=== PATIENT | male | born 1940 | race Hispanic/Latino ===

== ENCOUNTER 2017-06-13 20:55 | Inpatient (IN) | payer MEDICARE, OTHER ==
--- NOTE | 2017-06-13 21:53 | ED PDOC ---
Arrival/HPI - General Chief Complaint: Altered Mental Status Time Seen by Provider: 06/13/17 21:47 Historian: Patient - History of Present Illness Narrative History of Present Illness (Text): 06/13/17 21:50 Edna Lobo is a 76 year old male, whose past medical history includes diabetes, pneumonia, GI bleed, CAD with stents, CABG, and chronic kidney disease, who presents to the Emergency department brought in by EMS for hypoglycemia tonight. Patient states he took his blood sugar and noted it was low. When questioned, patient is unable to recall how low his blood sugar was or how he arrived at the hospital. Fingerstick in ER was 81. Limited HPI and ROS secondary to patient's altered mental status. Time/Duration: Other (tonight) Symptom Onset: Gradual Symptom Course: Unchanged Activities at Onset: Light Context: Home Past Medical History - Provider Review Nursing Documentation Reviewed: Yes - Infectious Disease Hx of Infectious Diseases: None - Tetanus Immunization Tetanus Immunization: Unknown - Cardiac Hx Cardiac Disorders: Yes Hx Pacemaker: No - Pulmonary Hx Respiratory Disorders: Yes Hx Pneumonia: Yes - Neurological Hx Paralysis: No - HEENT Other/Comment: GLASSES - Renal Hx Renal Disorder: No - Endocrine/Metabolic Hx Endocrine Disorders: Yes Hx Diabetes Mellitus Type 2: Yes - Hematological/Oncological Hx Blood Transfusions: Yes Hx Blood Transfusion Reaction: No - Integumentary Hx Dermatological Disorder: No - Musculoskeletal/Rheumatological Hx Musculoskeletal Disorders: Yes Hx Unsteady Gait: Yes - Gastrointestinal Hx Gastrointestinal Disorders: Yes (GI BLEED 6-5-14) - Genitourinary/Gynecological Hx Genitourinary Disorders: No - Psychiatric Hx Psychophysiologic Disorder: No Hx Emotional Abuse: No Hx Physical Abuse: No Hx Substance Use: No - Surgical History Hx Open Heart Surgery: Yes - Anesthesia Hx Anesthesia: Yes Hx Anesthesia Reactions: No - Suicidal Assessment Feels Threatened In Home Enviroment: No Family/Social History - Physician Review Nursing Documentation Reviewed: Yes Family/Social History: Unknown Family HX Smoking Status: Former Smoker Hx Alcohol Use: Yes Frequency of alcohol use: Socially Hx Substance Use: No Hx Substance Use Treatment: No Allergies/Home Meds Allergies/Adverse Reactions: Allergies prasugrel HCl [From Effient] Adverse Reaction (Severe, Verified 11/09/15 19:06) ANAPHYLAXIS Pt states he began to bleed out when he took this medication and no longer takes it. Home Medications: Home Meds Medication Instructions Recorded Confirmed Alprazolam [Alprazolam Xr] 0.5 mg PO DAILY PRN 09/10/15 06/14/17 Ascorbate Calcium [Vitamin C] 500 mg PO DAILY 09/10/15 06/14/17 Aspirin [Ecotrin] 81 mg PO DAILY 09/10/15 06/14/17 Cilostazol [Pletal] 50 mg PO BID 09/10/15 06/14/17 Clopidogrel [Plavix] 75 mg PO DAILY 09/10/15 06/14/17 Cyclobenzaprine [Flexeril] 10 mg PO BID 09/10/15 06/14/17 Folic Acid 1 mg PO DAILY 09/10/15 06/14/17 Furosemide [Lasix] 40 mg PO Q48H 09/10/15 06/14/17 Glimepiride 2 mg PO DAILY 09/10/15 06/14/17 Isosorbide Mononitrate ER [Imdur 30 mg PO DAILY 09/10/15 06/14/17 ER] Lisinopril [Zestril] 5 mg PO DAILY 09/10/15 06/14/17 Metoprolol Tartrate 50 mg PO BID 09/10/15 06/14/17 Omeprazole [Prilosec] 40 mg PO DAILY 09/10/15 06/14/17 Ranolazine [Ranexa] 500 mg PO BID 09/10/15 06/14/17 Rosuvastatin Calcium [Crestor] 5 mg PO SUN 09/10/15 06/14/17 Ubidecarenone [Co Q10] 100 mg PO DAILY 09/10/15 06/14/17 metFORMIN [glucOPHAGE] 850 mg PO BID 09/10/15 06/14/17 oxyCODONE [oxyCODONE Immediate 30 mg PO TID PRN 09/10/15 06/14/17 Release Tab] Review of Systems - Review of Systems Systems not reviewed;Unavailable: Altered Mental Status Endocrine: Other (+hypoglycemia) Physical Exam Vital Signs Reviewed: Yes Vital Signs Temp Pulse Resp BP Pulse Ox 06/14/17 07:45 80 18 161/80 H 99 06/14/17 07:30 98 F 80 18 170/88 H 98 06/14/17 05:53 77 17 178/92 H 97 06/14/17 02:14 82 18 182/63 H 98 06/13/17 21:25 98.9 F 83 17 138/72 97 Temperature: Afebrile Blood Pressure: Normal Pulse: Regular Respiratory Rate: Normal Appearance: Positive for: Well-Appearing, Non-Toxic Pain Distress: None Mental Status: No: Alert and Oriented X 3 (Alert and oriented x1) - Systems Exam Head: Present: Atraumatic, Normocephalic Pupils: Present: PERRL Extroacular Muscles: Present: EOMI Conjunctiva: Present: Normal Mouth: Present: Moist Mucous Membranes Neck: Present: Normal Range of Motion. No: Meningeal Signs, MIDLINE TENDERNESS , Paraspinal Tenderness Respiratory/Chest: Present: Clear to Auscultation, Good Air Exchange. No: Respiratory Distress, Accessory Muscle Use Cardiovascular: Present: Regular Rate and Rhythm, Normal S1, S2. No: Murmurs Abdomen: Present: Normal Bowel Sounds. No: Tenderness, Distention, Peritoneal Signs Upper Extremity: Present: Normal Inspection. No: Cyanosis, Edema Lower Extremity: Present: Normal Inspection. No: Edema Neurological: Present: GCS=15, CN II-XII Intact, Speech Normal Skin: Present: Warm, Dry, Normal Color. No: Rashes Psychiatric: Present: Alert. No: Oriented x 3 (Altered, oriented x2) Medical Decision Making ED Course and Treatment: 06/13/17 21:50 Impression: 76 year old male brought in for hypoglycemia tonight. Plan: -- CT Head w/o contrast -- EKG -- Labs, cardiac enzymes, alcohol level, blood cultures -- Urinalysis, urine drug screen, urine cultures -- Reassess and disposition Progress Notes: Reviewed EKG, NSR at [address]-segment elevations or depressions, no T-wave inversions, normal intervals. 06/14/17 01:05 CT Head shows: Brain: There are small periventricular foci of hypodensity, likely representing small vessel ischemic disease in a patient this age. The acuity of the white matter disease is indeterminate. The white-rodriguez differentiation is preserved demonstrating no acute territorial type infarct. There is mild prominence of the ventricles and sulci, compatible with atrophy. No acute intracranial hemorrhage is seen. Midline shift: There is no midline shift. Ventricles: See above. Bones/joints: The calvarium demonstrates no evidence for a depressed fracture. Soft tissues: No acute abnormality. Vasculature: There is atherosclerotic calcification of the cavernous internal carotid arteries. Sinuses: A mucous retention cyst or polyp is visualized within the left frontal sinus. Mastoid air cells: No mastoid effusion. IMPRESSION: 1. No acute intracranial hemorrhage or acute territorial type infarct. 2. There are small periventricular foci of hypodensity, likely representing small vessel ischemic disease in a patient this age. 3. Mild atrophy. 4. Paranasal sinus disease is noted above. 06/14/17 01:[address] Trinidad, who is aware and agrees with plan. Accepts pt in to his service. Pt will go to remote telemetry observation for hypoglycemia and altered mental status. - Lab Interpretations Microbiology Results: Microbiology Results 06/13/17 22:45 Blood-Venous Blood Culture - Preliminary NO GROWTH AFTER 48 HOURS 06/13/17 22:15 Blood-Venous Blood Culture - Preliminary NO GROWTH AFTER 48 HOURS 06/13/17 23:20 Urine,Clean Catch Urine Culture - Final No Growth (<1,000 CFU/ML) Lab Results: 06/13/17 22:15 06/13/17 22:15 Lab Results 06/13/17 23:20: Urine Opiates Screen Positive H, Urine Methadone Screen Negative , Ur Barbiturates Screen Negative, Ur Phencyclidine Scrn Negative, Ur Amphetamines Screen Negative, U Benzodiazepines Scrn Positive, U Oth Cocaine Metabols Negative, U Cannabinoids Screen Negative 06/13/17 23:20: Urine Color Yellow, Urine Appearance Clear, Urine pH 6.0, Ur Specific Dorena 1.025, Urine Protein Negative, Urine Glucose (UA) Negative, Urine Ketones Negative, Urine Blood Negative, Urine Nitrate Negative, Urine Bilirubin Negative, Urine Urobilinogen 0.2, Ur Leukocyte Esterase Negative 06/13/17 22:15: Salicylates < 1 L, Acetaminophen < 10.0 L 06/13/17 22:15: Ammonia < 9 L 06/13/17 22:15: Alcohol, Quantitative < 10 06/13/17 22:15: Sodium 139, Potassium 4.4, Chloride 103, Carbon Dioxide 28, Anion Gap 12, BUN 23 H, Creatinine 1.3, Est GFR ( Amer) > 60, Est GFR ( Non-Af Amer) 54, Random Glucose 82, Calcium 10.0, Phosphorus 3.5, Magnesium 1.7 , Total Bilirubin 0.3, AST 19, ALT 25, Alkaline Phosphatase 56, Lactate Dehydrogenase 294 L, Total Creatine Kinase 32 L, Troponin I < 0.01, Total Protein 7.4, Albumin 3.7, Globulin 3.7, Albumin/Globulin Ratio 1.0 L 06/13/17 22:15: PT 12.4, INR 1.09 H, APTT 30.8 06/13/17 22:15: WBC 5.7, RBC 3.47 L, Hgb 11.4 L, Hct 34.9 L, MCV 100.6, MCH 32.9 , MCHC 32.7, RDW 12.5, Plt Count 160, MPV 9.9, Gran % 56.0, Lymph % (Auto) 31.5 , [place] % (Auto) 10.7 H, Eos % (Auto) 1.6, Baso % (Auto) 0.2, Gran # 3.20, Lymph # 1.8, [place] # 0.6, Eos # 0.1, Baso # 0.01 06/13/17 21:55: POC Glucose (mg/dL) 93 I have reviewed the lab results: Yes - RAD Interpretation Radiology Orders: 06/13/17 21:54 HEAD W/O CONTRAST [CT] Stat Management Coordinator: Radiologist - EKG Interpretation Interpreted by ED Physician: Yes Type: 12 lead EKG - Medication Orders Current Medication Orders: Acetaminophen (Tylenol 325mg Tab) 650 mg PO Q4H PRN PRN Reason: Pain, Mild (1-3) Alprazolam (Xanax) 0.5 mg PO DAILY PRN; Protocol PRN Reason: Anxiety Last Admin: 06/16/17 07:02 Dose: 0.5 mg Behavioural Document 06/16/17 07:02 (Rec: 06/16/17 07:02 [id number]) Maintenance Maintenance Dose No Nonmedicinal Nonmedicinal Interventions Redirect Therapeutic Communication Behavior Behavior for Medication: Anxiety Aspirin (Ecotrin) 81 mg PO DAILY [facility] Last Admin: 06/16/17 10:30 Dose: 81 mg Atorvastatin Calcium (Lipitor) 20 mg PO DIN [facility] Last Admin: 06/15/17 19:40 Dose: 20 mg Clopidogrel Bisulfate (Plavix) 75 mg PO DAILY [facility] Last Admin: 06/16/17 10:30 Dose: 75 mg Insulin Human Regular (Humulin R Low) 0 units SC ACHS [facility] PRN Reason: Protocol Last Admin: 06/16/17 12:38 Dose: 1 units MAR Blood Glucose Document 06/16/17 12:38 CV (Rec: 06/16/17 12:38 [facility] [id number] Blood Glucose Finger Stick Blood Glucose (70-120) 167 Subcutaneous Administrations Document 06/16/17 12:38 CV (Rec: 06/16/17 12:38 CV [facility] [id number]) Charges for Administration # of Subcutaneous Administrations 1 Lisinopril (Zestril) 5 mg PO DAILY [facility] Last Admin: 06/16/17 10:30 Dose: 5 mg MAR Pulse and Blood Pressure Document 06/16/17 10:30 CV (Rec: 06/16/17 10:30 CV [facility] [id number]) Pulse Pulse Rate (60-90) 69 Blood Pressure Blood Pressure (100/60-150/90) 172/91 Metoprolol Tartrate (Lopressor) 50 mg PO BID [facility] Last Admin: 06/16/17 10:28 Dose: 50 mg MAR Pulse and Blood Pressure Document 06/16/17 10:28 CV (Rec: 06/16/17 10:29 CV [facility] [id number]) Pulse Pulse Rate (60-90) 69 Blood Pressure Blood Pressure (100/60-150/90) 172/91 Multi-Ingredient Cream (Hydrocerin Cream) 0 ea TOP BID [facility] Nicotine (Nicoderm Cq) 1 patch TD DAILY [facility] Last Admin: 06/16/17 10:30 Dose: 1 patch Oxycodone HCl (Oxycodone Immediate Release Tab) 30 mg PO TID PRN PRN Reason: Pain, severe (8-10) Last Admin: 06/16/17 16:44 Dose: 30 mg MAR Pain Assessment Document 06/16/17 16:44 CV (Rec: 06/16/17 16:44 CV [facility] [id number] Pain Reassessment Is this a pain reassessment? No Presence of Pain Presence of Pain Yes Pain Scale Used Pain Scale Used Numeric Thiamine HCl (Vitamin B1 Tab) 100 mg PO DAILY [facility] Last Admin: 06/16/17 10:30 Dose: 100 mg Discontinued Medications Alprazolam (Xanax) 0.5 mg PO DAILY PRN; Protocol PRN Reason: Anxiety Last Admin: 06/15/17 23:47 Dose: 0.5 mg Behavioural Document 06/15/17 23:47 KP (Rec: 06/15/17 23:47 [id number]) Maintenance Maintenance Dose No Nonmedicinal Nonmedicinal Interventions Redirect Therapeutic Communication Behavior Behavior for Medication: Anxiety Re-Assess: Reassess Psych Meds Document 06/16/17 00:47 KP (Rec: 06/16/17 01:37 [facility] Reassess Psych Med Effective Dextrose (Dextrose 50% Inj) 50 ml IVP STAT STA Stop: 06/14/17 01:39 Last Admin: 06/14/17 01:53 Dose: 50 ml IVP Administration Document 06/14/17 01:53 IT (Rec: 06/14/17 01:53 IT [id number]) Charges for Administration # of IVP Administrations 1 Dextrose/Sodium Chloride (Dextrose 5%/0.45% Ns 1000 Ml) 1,000 mls @ 60 mls/hr IV .[id number] [facility] Last Admin: 06/14/17 01:52 Dose: 60 mls/hr eMAR Start Stop Document 06/14/17 01:52 IT (Rec: 06/14/17 01:52 IT [id number]) Intravenous Solution Start Date 06/14/17 Start Time 01:52 - Scribe Statement The provider has reviewed the documentation as recorded by the Scribe Julai Guzmán All medical record entries made by the Scribe were at my direction and personally dictated by me. I have reviewed the chart and agree that the record accurately reflects my personal performance of the history, physical exam, medical decision making, and the department course for this patient. I have also personally directed, reviewed, and agree with the discharge instructions and disposition. Disposition/Present on Arrival - Present on Arrival Any Indicators Present on Arrival: No History of DVT/PE: No History of Uncontrolled Diabetes: Yes Urinary Catheter: No History of Decub. Ulcer: No History Surgical Site Infection Following: None - Disposition Have Diagnosis and Disposition been Completed?: Yes Diagnosis: Altered mental status Disposition: HOSPITALIZED Disposition Time: 01:50 Patient Problems: Current Active Problems Problem Status Onset Altered mental status Acute Condition: FAIR
[2017-06-13 22:56] LABS: BASO # 0.01 K/mm3 (0.0-2.0); BASO % 0.2 % (0.0-3.0); EOS # 0.1 (0.0-0.7); EOS % 1.6 % (1.5-5.0); GRAN # 3.2 (1.4-6.5); HEMOGLOBIN 11.4 g/dL (14.0-18.0); LYMPH # 1.8 (1.2-3.4); LYMPH % 31.5 % (22.0-35.0); MEAN CELL VOLUME 100.6 fl (80.0-105.0); MEAN CORPUSCULAR HEMOGLOBIN 32.9 pg (25.0-35.0); MEAN CORPUSCULAR HGB CONC 32.7 g/dl (31.0-37.0); MEAN PLATELET VOLUME 9.9 fl (7.0-11.0); MONO # 0.6 (0.1-0.6); MONO % 10.7 % (1.0-6.0); RBC 3.47 10^6/uL (3.5-6.1); RED CELL DISTRIBUTION WIDTH 12.5 % (11.5-14.5); WHITE BLOOD COUNT 5.7 10^3/ul (4.5-11.0)
[2017-06-13 23:04] LABS: ACETAMINOPHEN < 10.0 ug/ml (10.0-20.0); SALICYLATE < 1 mg/dL (2.0-20.0)
[2017-06-13 23:10] LABS: ALBUMIN 3.7 g/dL (3.0-4.8); ALT/SGPT 25 U/L (7-56); AST/SGOT 19 U/L (17-59); BLOOD UREA NITROGEN 23 mg/dL (7-21); GFR AFRICAN-AMERICAN > 60; GFR NON-AFRICAN AMERICAN 54; MAGNESIUM 1.7 mg/dL (1.7-2.2)
[2017-06-13 23:11] LABS: TROPONIN I < 0.01 ng/mL
[2017-06-13 23:18] LABS: INR 1.09 (0.93-1.08); PARTIAL THROMBOPLASTIN TIME 30.8 Seconds (25.1-36.5); PROTHROMBIN TIME 12.4 SECONDS (9.4-12.5)
[2017-06-13 23:38] LABS: URINE BILIRUBIN NEGATIVE (NEGATIVE); URINE BLOOD NEGATIVE (NEGATIVE); URINE GLUCOSE (UA) NEGATIVE (NEGATIVE); URINE LEUKOCYTE ESTERASE NEGATIVE Leu/uL (NEGATIVE); URINE NITRATE NEGATIVE (NEGATIVE); URINE PROTEIN NEGATIVE mg/dL (<30 mg/dL); URINE UROBILINOGEN 0.2 E.U./dL (<1 E.U./dL)
[2017-06-13 23:56] LABS: BARBITURATES, UR NEGATIVE (NEGATIVE); PHENCYCLIDINE, UR NEGATIVE (NEGATIVE)
[2017-06-14] LABS: URINE APPEARANCE CLEAR (CLEAR); URINE COLOR YELLOW (YELLOW)
[2017-06-14 00:04] LABS: BENZODIAZEPINES, UR POSITIVE (NEGATIVE); OPIATES, UR POSITIVE (NEGATIVE)
--- NOTE | 2017-06-14 01:04 | CT ---
EXAM: CT Head Without Intravenous Contrast EXAM DATE/TIME: 06/13/2017 9:54 PM CLINICAL HISTORY: The patient age is 76 years old and is male; Signs and symptoms; Altered mental status/memory loss; Additional info: [facility] Facility exam id and description: Ct heads head w/o contrast TECHNIQUE: Axial computed tomography images of the head/brain without intravenous contrast. All CT scans at this facility use one or more dose reduction techniques, viz.: automated exposure control; ma/kV adjustment per patient size (including targeted exams where dose is matched to indication; i.e. head); or iterative reconstruction technique. Coronal and sagittal reformatted images were created and reviewed. COMPARISON: No relevant prior studies available. FINDINGS: Brain: There are small periventricular foci of hypodensity, likely representing small vessel ischemic disease in a patient this age. The acuity of the white matter disease is indeterminate. The white-rodriguez differentiation is preserved demonstrating no acute territorial type infarct. There is mild prominence of the ventricles and sulci, compatible with atrophy. No acute intracranial hemorrhage is seen. Midline shift: There is no midline shift. Ventricles: See above. Bones/joints: The calvarium demonstrates no evidence for a depressed fracture. Soft tissues: No acute abnormality. Vasculature: There is atherosclerotic calcification of the cavernous internal carotid arteries. Sinuses: A mucous retention cyst or polyp is visualized within the left frontal sinus. Mastoid air cells: No mastoid effusion. IMPRESSION: 1. No acute intracranial hemorrhage or acute territorial type infarct. 2. There are small periventricular foci of hypodensity, likely representing small vessel ischemic disease in a patient this age. 3. Mild atrophy. 4. Paranasal sinus disease is noted above.
[2017-06-14] MEDS ORDERED: Dextrose 50% SYRINGE Inj (50 ml) IVP STA (01:38)
[2017-06-14] MEDS ORDERED: Dextrose 5%/0.45% NS 1,000 ML IV SCH (01:45)
[2017-06-14] MEDS ORDERED: Sodium Chloride 0.9% 1,000 ML IV STA (03:37)
[2017-06-14] MEDS ORDERED: Insulin Regular 1 UNITS/0.01 ML ML ONE (07:52)
[2017-06-14] MEDS: Insulin Reg-LOW-Coverage SC SCH ×3 (07:55→23:43)
--- NOTE | 2017-06-14 09:57 | CARD ---
APPROVED REPORT EKG Measurement Heart [id number] ND [id number] <Conclusion> Normal sinus rhythm NSSTW changes Improved repolarization c/w ECG 11/09/15
[2017-06-14] MEDS: oxyCODONE 30 mg Immediate Release Tab PO PRN (14:00)
--- NOTE | 2017-06-14 14:43 | CP.PCM.CON ---
<Brianna Jaquez - Last Filed: 06/14/17 14:39> History of Present Illness - History of Present Illness History of Present Illness: PGY-[address] Villanueva Neurology: AMS Mr Edna Lobo, 74M, with PMHx of diabetes, pneumonia, GI bleed, CAD with CABG/stents, and chronic kidney disease, was brought in by EMS for alter mental status. Fingerstick in ER was 81. Pt last memory was yesterday's breakfast. Per pt's , pt is not quite himself yesterday. Pt denied recent sickness, travel, change in meds. ROS - As of this moment, pt denies WOODY, change of vision, CP, SOB, N/V/D/C, abdominal pain, dysuria, urinary frequency. (+) numbness/tingling and toe necrosis which is chronic. Pt has outpt podiatry PAST MEDICAL HISTORY: CAD s/p CABG and stents Diabetes mellitus type 2 x 30 years history of GI bleed chronic kidney disease stage III. PSH: CABG, orthopedic surgery. FAMILY HISTORY: Noncontributory. SH: Former smoker, occasional alcohol abuse. Lives at home with . ALLERGIES: EFFIENT CAUSES SEVERE BLEEDING. Med: reviewed Review of Systems - Review of Systems All systems: reviewed and no additional remarkable complaints except Review of Systems: as in HPI Past Patient History - Infectious Disease Hx of Infectious Diseases: None - Tetanus Immunizations Tetanus Immunization: Unknown - Past Medical History & Family History Past Medical History?: Yes - Past Social History Smoking Status: Former Smoker - CARDIAC Hx Cardiac Disorders: Yes Hx Pacemaker: No - PULMONARY Hx Respiratory Disorders: Yes Hx Pneumonia: Yes - NEUROLOGICAL Hx Paralysis: No - HEENT Other/Comment: GLASSES - RENAL Hx Chronic Kidney Disease: No - ENDOCRINE/METABOLIC Hx Endocrine Disorders: Yes Hx Diabetes Mellitus Type 2: Yes - HEMATOLOGICAL/ONCOLOGICAL Hx Blood Transfusions: Yes Hx Blood Transfusion Reaction: No - INTEGUMENTARY Hx Dermatological Problems: No - MUSCULOSKELETAL/RHEUMATOLOGICAL Hx Musculoskeletal Disorders: Yes Hx Unsteady Gait: Yes - GASTROINTESTINAL Hx Gastrointestinal Disorders: Yes (GI BLEED 6--14) - GENITOURINARY/GYNECOLOGICAL Hx Genitourinary Disorders: No - PSYCHIATRIC Hx Psychophysiologic Disorder: No Hx Emotional Abuse: No Hx Physical Abuse: No Hx Substance Use: No - SURGICAL HISTORY Hx Open Heart Surgery: Yes - ANESTHESIA Hx Anesthesia: Yes Hx Anesthesia Reactions: No Meds Allergies/Adverse Reactions: Allergies Allergy/AdvReac Type Severity Reaction Status Date / Time prasugrel HCl [From Effient] AdvReac Severe ANAPHYLAXIS Verified 11/09/15 19:06 - Medications Medications: Current Medications Acetaminophen (Tylenol 325mg Tab) 650 mg PO Q4H PRN PRN Reason: Pain, Mild (1-3) Aspirin (Ecotrin) 81 mg PO DAILY [facility] Last Admin: 06/14/17 10:37 Dose: 81 mg Atorvastatin Calcium (Lipitor) 20 mg PO DIN [facility] Clopidogrel Bisulfate (Plavix) 75 mg PO DAILY [facility] Last Admin: 06/14/17 10:37 Dose: 75 mg Dextrose/Sodium Chloride (Dextrose 5%/0.45% Ns 1000 Ml) 1,000 mls @ 60 mls/hr IV .[id number] [facility] Last Admin: 06/14/17 01:52 Dose: 60 mls/hr Insulin Human Regular (Humulin R Low) 0 units SC ACHS [facility] PRN Reason: Protocol Last Admin: 06/14/17 13:59 Dose: Not Given Lisinopril (Zestril) 5 mg PO DAILY [facility] Last Admin: 06/14/17 10:37 Dose: 5 mg Metoprolol Tartrate (Lopressor) 50 mg PO BID [facility] Last Admin: 06/14/17 10:37 Dose: 50 mg Oxycodone HCl (Oxycodone Immediate Release Tab) 30 mg PO TID PRN PRN Reason: Pain, severe (8-10) Last Admin: 06/14/17 14:00 Dose: 30 mg Thiamine HCl (Vitamin B1 Tab) 100 mg PO DAILY [facility] Last Admin: 06/14/17 12:03 Dose: 100 mg Physical Exam - Constitutional Appears: No Acute Distress - Head Exam Head Exam: ATRAUMATIC, NORMAL INSPECTION, NORMOCEPHALIC - Eye Exam Eye Exam: EOMI, Normal appearance, PERRL Pupil Exam: NORMAL ACCOMODATION, PERRL - ENT Exam ENT Exam: Mucous Membranes Moist - Neck Exam Additional comments: supple - Respiratory Exam Respiratory Exam: Clear to Auscultation Bilateral, NORMAL BREATHING PATTERN. absent: Rales, Rhonchi, Wheezes - Cardiovascular Exam Cardiovascular Exam: REGULAR RHYTHM, +S1, +S2 - GI/Abdominal Exam GI & Abdominal Exam: Normal Bowel Sounds, Soft. absent: Guarding, Rigid, Tenderness - Extremities Exam Extremities exam: Positive for: pedal edema (increase skin tone b/l LE. Dry necrotic in toes, chronic), pedal pulses present. Negative for: calf tenderness - Neurological Exam Neurological exam: Alert, CN II-XII Intact, Oriented x3 Additional comments: speech: fluent recall: 3/3 motor: 5/5 sensory: decrease LE b/l rapid alt movment: intact finger to nose coordination: intact - Psychiatric Exam Psychiatric exam: Normal Affect, Normal Mood - Skin Skin Exam: Dry, Warm Results - Vital Signs Recent Vital Signs: Last Vital Signs Temp 98 F 06/14/17 07:30 Pulse 83 06/14/17 10:37 Resp 18 06/14/17 07:45 BP 174/83 H 06/14/17 10:37 Pulse Ox 99 06/14/17 07:45 - Labs Result Diagrams: 06/13/17 22:15 06/13/17 22:15 Labs: Laboratory Results - last 24 hr 06/14/17 07:29 POC Glucose (mg/dL) 177 H Assessment & Plan - Assessment and Plan (Free Text) Plan: Mr Edna Lobo, 74M, with PMHx of diabetes, pneumonia, GI bleed, CAD with CABG/stents, and chronic kidney disease, was brought in by EMS for alter mental status. Fingerstick in ER was 81. Pt last memory was yesterday's breakfast. Per pt's , pt is not quite himself yesterday. Tranient confusion state 2/2 transient hypoglycemic episode - monitor and correct electrolyte accordingly - maintain SBP 120-130 - aspirin 81, lipitor 20 for stroke prevention - thiamine 100mg PO daily for neuraol activit Macrocytic anmeia - check b12, folate, supplement if needed. Also to prevent neuropathy Diabetic neuropathy - PT/OT for gait, balance, strength s/r/d/w Dr. Villanueva <Jerrell Villanueva - Last Filed: 06/14/17 16:38> Meds - Medications Medications: Current Medications Acetaminophen (Tylenol 325mg Tab) 650 mg PO Q4H PRN PRN Reason: Pain, Mild (1-3) Aspirin (Ecotrin) 81 mg PO DAILY [facility] Last Admin: 01/22/18 10:37 Dose: 81 mg Atorvastatin Calcium (Lipitor) 20 mg PO DIN [facility] Clopidogrel Bisulfate (Plavix) 75 mg PO DAILY [facility] Last Admin: 06/14/17 10:37 Dose: 75 mg Dextrose/Sodium Chloride (Dextrose 5%/0.45% Ns 1000 Ml) 1,000 mls @ 60 mls/hr IV .[id number] [facility] Last Admin: 06/14/17 01:52 Dose: 60 mls/hr Insulin Human Regular (Humulin R Low) 0 units SC ACHS [facility] PRN Reason: Protocol Last Admin: 06/14/17 13:59 Dose: Not Given Lisinopril (Zestril) 5 mg PO DAILY [facility] Last Admin: 06/14/17 10:37 Dose: 5 mg Metoprolol Tartrate (Lopressor) 50 mg PO BID [facility] Last Admin: 06/14/17 10:37 Dose: 50 mg Oxycodone HCl (Oxycodone Immediate Release Tab) 30 mg PO TID PRN PRN Reason: Pain, severe (8-10) Last Admin: 06/14/17 14:00 Dose: 30 mg Thiamine HCl (Vitamin B1 Tab) 100 mg PO DAILY [facility] Last Admin: 06/14/17 12:03 Dose: 100 mg Results - Vital Signs Recent Vital Signs: Last Vital Signs Temp 98 F 06/14/17 07:30 Pulse 83 06/14/17 10:37 Resp 18 06/14/17 07:45 BP 174/83 H 06/14/17 10:37 Pulse Ox 99 06/14/17 07:45 - Labs Result Diagrams: 06/13/17 22:15 06/13/17 22:15 Labs: Laboratory Results - last 24 hr 06/14/17 06/14/17 07:29 12:08 POC Glucose (mg/dL) 177 H 86 Attending/Attestation - Attestation I have personally seen and examined this patient.: Yes I have fully participated in the care of the patient.: Yes I have reviewed all pertinent clinical information: Yes
[2017-06-14 16:48] VITALS: BMI 28.1
--- NOTE | 2017-06-14 19:24 | HP ---
CHIEF COMPLAINT AND HISTORY OF PRESENT ILLNESS: This is a 76-year-old male who is coming in to the hospital with confusion. The patient's had called me yesterday to let me know that the patient was not his usual self, he was confused. He was brought in and was found to be hypoglycemic. The patient was given an amp of D50. The patient still has confusion. He is not able to focus on questions. He has difficult time in concentrating. He has no complaints of any chest pain. No shortness of breath. No nausea. No vomiting. No dysuria. No frequency. No headache or dizziness. He does take narcotics for chronic pain. He denies any weakness in the arms or legs. No dysuria or frequency. No cough or congestion. REVIEW OF SYSTEMS: All other review of systems are within normal limits except what is mentioned. ALLERGIES: PRASUGREL. PAST MEDICAL HISTORY: Diabetes type II, pneumonia, coronary artery disease, CKD stage 3, and chronic back pain. PAST SURGICAL HISTORY: CABG. SOCIAL HISTORY: He is a former smoker. He does not currently smoke. He denies alcohol or drug use. He lives with his . FAMILY HISTORY: Noncontributory. MEDICATIONS: Has been reviewed on the [facility]. PHYSICAL EXAMINATION VITAL SIGNS: Temperature is 98, pulse 80, blood pressure 161/80, respirations 18 and O2 saturation 99%. GENERAL: The patient lying in bed, uncomfortable, and in no acute distress. HEENT: Atraumatic and normocephalic. Anicteric sclerae. Moist mucosa. Catron conjunctivae. No oral lesions. NECK: No JVD, anterior and posterior adenopathy, thyromegaly, or bruits. CARDIOVASCULAR: S1 and S2 regular. No murmur, rubs, or gallop. LUNGS: Clear to auscultation bilaterally. No wheezes, rales, or rhonchi. ABDOMEN: Bowel sounds are positive. Soft, nontender and nondistended. No hepatosplenomegaly. No rebound and no guarding EXTREMITIES: No cyanosis, clubbing, or edema. NEUROLOGIC: No facial asymmetry. Tongue is midline. No uvula deviation. Power is 5/5 upper extremity and lower extremity. Sensation intact in upper extremity and lower extremity. PSYCHIATRIC: The patient is awake, but not alert. He does not know the day or the time. He has no suicidal ideation. GENITOURINARY: No CVA tenderness. VASCULAR: 2+ pulses in the carotid pulses and pedal pulses. SKIN: No erythema or nodules SPINE: Shows normal curvature. LABORATORY DATA: Labs have been reviewed. White count is 5.7 and hemoglobin 11.4. INR is 1. Chemistry shows creatinine is 1.3, troponin is 0.01. Urine shows nitrates are negative. Bilirubin is negative. Toxicology shows urine tox is negative except opioids are positive. CT of the head done shows no acute intracranial hemorrhage. There are small periventricular foci of hypertension, likely representing small vessel ischemic disease. Mild atrophy. ASSESSMENT: 1. Delirium. 2. Diabetes type II. 3. Coronary artery disease status post coronary artery bypass graft. 4. Chronic kidney disease stage 3. PLAN: The patient was brought into the hospital. He has been placed on D5, half normal saline for his hyperglycemia. The patient has been on oral hyperglycemic as an outpatient and has not been eating. He is going to continue his aspirin. He is on Plavix. The patient is on Zestril. He is also on metoprolol. I will continue his metoprolol for his coronary artery disease. I will get Neurological evaluation. He is going to need evaluation by Neurology. I will get Physical Therapy. I did speak to the patient's this morning to give her an update of the patient's diagnosis and plan of care. Ronen Trinidad MD
--- NOTE | 2017-06-15 05:49 | CON ---
DATE: 06/14/2017 TIME: 7:30 p.m. CHIEF COMPLAINT/HISTORY OF PRESENT ILLNESS: This is a 76-year-old who was admitted with mental status changes and found to be hypoglycemic. Currently, he is lucid and answering questions appropriately. I am seeing him concerning his PVD and bilateral lower extremity ischemia. His feet are erythematous with chronic changes. There are patches of dry discoloration, early gangrene bilaterally. The patient describes [id number] pain intermittently and says these changes have been present in the feet for over one year. He is neuropathic. He has had several previous lower extremity arteriograms in 2015 and 2016 by the Cardiology service. This revealed severe calcified disease with multifocal stenosis in the SFA, popliteal, and tibial distribution. The patient is diabetic. He quit smoking approximately five years ago. He is status post CABG. He has stage III renal insufficiency. His femoral pulses are weak, this may be related to calcification. His popliteal and distal pulses are not palpable. I will order an DEMOND/PVR exam. There appears to be primarily chronic ischemic changes, though the digital discoloration is worrisome. I will discuss the situation with Dr. Trinidad along with the patient and decide if further workup is indicated at this time. Close Podiatry followup is recommended. Jay Bradley MD MTDD
[2017-06-15 06:51] LABS: HEMOGLOBIN 12.3 g/dL (14.0-18.0); MEAN CELL VOLUME 99.5 fl (80.0-105.0); MEAN CORPUSCULAR HEMOGLOBIN 32.9 pg (25.0-35.0); MEAN CORPUSCULAR HGB CONC 33.1 g/dl (31.0-37.0); RBC 3.74 10^6/uL (3.5-6.1); RED CELL DISTRIBUTION WIDTH 12.4 % (11.5-14.5); WHITE BLOOD COUNT 5.2 10^3/ul (4.5-11.0)
[2017-06-15 07:20] LABS: BLOOD UREA NITROGEN 15 mg/dL (7-21); GFR AFRICAN-AMERICAN > 60; GFR NON-AFRICAN AMERICAN > 60
[2017-06-15 07:21] LABS: ALT/SGPT 22 U/L (7-56); AST/SGOT 30 U/L (17-59); CALCIUM 10.4 mg/dL (8.4-10.5)
[2017-06-15] MEDS: Insulin Reg-LOW-Coverage SC SCH ×4 (08:52→21:47)
[2017-06-15] MEDS: oxyCODONE 30 mg Immediate Release Tab PO PRN ×3 (08:56→23:49)
--- NOTE | 2017-06-15 10:19 | PN ---
DATE: 06/15/2017 SUBJECTIVE: The patient has no complaints of any chest pain or shortness of breath. No headaches or dizziness. He is more awake and alert. PHYSICAL EXAMINATION: VITAL SIGNS: Temperature is 97.8, pulse is 70, blood pressure 161/79, respirations 20. GENERAL: The patient is lying in bed, flat, comfortable. HEENT: No oral lesion. Anicteric sclerae. Moist mucosa. NECK: No JVD, adenopathy, or thyromegaly. CARDIOVASCULAR: S1 and S2, regular. No murmurs, rubs, or gallops. LUNGS: Clear to auscultation bilaterally. No wheeze, rales, or rhonchi. ABDOMEN: Bowel sounds are positive, soft, nontender, and nondistended. EXTREMITIES: No cyanosis, clubbing or edema. On foot exam, he has a small dry gangrenous area in the left second toe. LABORATORY DATA: White count of 5.2, hemoglobin of 12.3, creatinine is 1.0. ASSESSMENT: 1. Delirium. 2. Diabetes type 2. 3. Coronary artery disease, status post coronary artery bypass grafting. 4. Chronic kidney disease, stage III. 5. Peripheral arterial disease. PLAN: The patient was seen by Dr. Jay Bradley. The patient has chronic ischemic changes with discoloration of his toes. The patient is going to be seen by Podiatry. The patient is on IV fluids. I will discontinue the patient's IV fluids. He is on metoprolol. The patient is on Lipitor for dyslipidemia. The patient is on oxycodone for pain as needed. He is on Plavix. He is receiving his thiamine. Lower extremity ultrasound of the arteries is pending. He has blood cultures that are negative. I did speak to the patient's yesterday. The patient is going to be seen by Physical Therapy. We will see how he ambulates. Ronen Trinidad MD
--- NOTE | 2017-06-15 12:16 | US ---
PROCEDURE: Lower extremity DEMOND exam HISTORY: Severe peripheral vascular disease. Patchy digital ischemia and rest pain. PHYSICIAN(S): Jay Bradley MD. FINDINGS: The resting DEMOND's are severely abnormal: Right, 0.48 and left, 0.44 The brachial systolic pressures are symmetric. There is a 63 mm difference between the right high thigh pressure and arm. The right high thigh PVR waveform is decreased in amplitude compared to the left. This is suggestive of right iliac occlusive disease. The left high thigh pressure is noncompressible. The left high thigh PVR waveform is normal The calf PVR waveforms are moderately blunted bilaterally. Significant gradients are present. The findings are consistent with bilateral SFA occlusive disease. The ankle and metatarsal waveforms are severely blunted. This is more pronounced on the right than the left. This is consistent with bilateral tibial disease. IMPRESSION: 1. Severely abnormal ABIs at rest. 2. Right iliac occlusive disease. 3. Bilateral SFA occlusive disease. 4. Bilateral tibial occlusive disease. 5. Comparing with the 2015 study, there has been interval progression
--- NOTE | 2017-06-15 12:41 | CP.PCM.PN ---
<Brianna Jaquez - Last Filed: 06/15/17 12:38> Subjective - Date & Time of Evaluation Date of Evaluation: 06/15/17 Time of Evaluation: 12:38 - Subjective Subjective: Neurology PGY-[address] Villanueva Pt states that he has no confusion problem today. Sitting comfortably in bed, tolerating breakfast Objective - Vital Signs/Intake and Output Vital Signs (last 24 hours): Temp Pulse Resp BP Pulse Ox 97.8 F 70 20 161/79 H 97 06/15/17 07:30 06/15/17 09:20 06/15/17 07:30 06/15/17 09:20 06/15/17 07:30 Intake and Output: 06/15/17 06/15/17 06:59 18:59 Intake Total 840 Output Total 700 Balance 140 - Medications Medications: Current Medications Acetaminophen (Tylenol 325mg Tab) 650 mg PO Q4H PRN PRN Reason: Pain, Mild (1-3) Alprazolam (Xanax) 0.5 mg PO DAILY PRN; Protocol PRN Reason: Anxiety Last Admin: 06/14/17 20:12 Dose: 0.5 mg Aspirin (Ecotrin) 81 mg PO DAILY [facility] Last Admin: 06/15/17 09:20 Dose: 81 mg Atorvastatin Calcium (Lipitor) 20 mg PO DIN [facility] Last Admin: 06/14/17 17:59 Dose: 20 mg Clopidogrel Bisulfate (Plavix) 75 mg PO DAILY [facility] Last Admin: 06/15/17 09:19 Dose: 75 mg Insulin Human Regular (Humulin R Low) 0 units SC ACHS [facility] PRN Reason: Protocol Last Admin: 06/15/17 12:02 Dose: 1 units Lisinopril (Zestril) 5 mg PO DAILY [facility] Last Admin: 06/15/17 09:20 Dose: 5 mg Metoprolol Tartrate (Lopressor) 50 mg PO BID [facility] Last Admin: 06/15/17 09:19 Dose: 50 mg Oxycodone HCl (Oxycodone Immediate Release Tab) 30 mg PO TID PRN PRN Reason: Pain, severe (8-10) Last Admin: 06/15/17 08:56 Dose: 30 mg Thiamine HCl (Vitamin B1 Tab) 100 mg PO DAILY [facility] Last Admin: 06/15/17 09:20 Dose: 100 mg - Labs Labs: 06/15/17 06:20 06/15/17 06:20 PT 12.4 SECONDS (9.4-12.5) 06/13/17 22:15 INR 1.09 (0.93-1.08) H 06/13/17 22:15 APTT 30.8 Seconds (25.1-36.5) 06/13/17 22:15 - Constitutional Appears: Well - Head Exam Head Exam: ATRAUMATIC, NORMAL INSPECTION, NORMOCEPHALIC - Eye Exam Eye Exam: EOMI, Normal appearance, PERRL Pupil Exam: NORMAL ACCOMODATION, PERRL - ENT Exam ENT Exam: Mucous Membranes Moist - Neck Exam Additional comments: supple - Respiratory Exam Respiratory Exam: Clear to Ausculation Bilateral, NORMAL BREATHING PATTERN - Cardiovascular Exam Cardiovascular Exam: REGULAR RHYTHM, +S1, +S2. absent: Murmur - GI/Abdominal Exam GI & Abdominal Exam: Soft, Normal Bowel Sounds. absent: Tenderness - Extremities Exam Extremities Exam: Pedal Edema (slight, with increase coloration; dry necrosis at toes, no drainage/bleed). absent: Calf Tenderness - Neurological Exam Additional comments: speech: fluent recall: 3/3 motor: 5/5 sensory: decrease LE b/l rapid alt movment: intact finger to nose coordination: intact - Psychiatric Exam Psychiatric exam: Normal Affect, Normal Mood - Skin Skin Exam: Dry, Warm Assessment and Plan - Assessment and Plan (Free Text) Plan: Mr Edna Lobo, 74M, with PMHx of diabetes, pneumonia, GI bleed, CAD with CABG/stents, and chronic kidney disease, was brought in by EMS for alter mental status. Fingerstick in ER was 81. Transient confusion state 2/2 transient hypoglycemic episode - monitor and correct electrolyte accordingly - maintain SBP 120-130 - aspirin 81, lipitor 20 for stroke prevention - thiamine 100mg PO daily for neural activation Macrocytic anmeia - Pending ___b12, folate, supplement if needed. Also to prevent neuropathy Hypertension - 160 today Diabetic neuropathy - PT/OT for gait, balance, strength s/r/d/w Dr. Villanueva <Jerrell Villanueva - Last Filed: 06/15/17 14:05> Objective - Vital Signs/Intake and Output Vital Signs (last 24 hours): Temp Pulse Resp BP Pulse Ox 97.8 F 70 20 161/79 H 97 06/15/17 07:30 06/15/17 09:20 06/15/17 07:30 06/15/17 09:20 06/15/17 07:30 Intake and Output: 06/15/17 06/15/17 06:59 18:59 Intake Total 840 Output Total 700 Balance 140 - Medications Medications: Current Medications Acetaminophen (Tylenol 325mg Tab) 650 mg PO Q4H PRN PRN Reason: Pain, Mild (1-3) Alprazolam (Xanax) 0.5 mg PO DAILY PRN; Protocol PRN Reason: Anxiety Last Admin: 06/14/17 20:12 Dose: 0.5 mg Aspirin (Ecotrin) 81 mg PO DAILY [facility] Last Admin: 06/15/17 09:20 Dose: 81 mg Atorvastatin Calcium (Lipitor) 20 mg PO DIN [facility] Last Admin: 06/14/17 17:59 Dose: 20 mg Clopidogrel Bisulfate (Plavix) 75 mg PO DAILY [facility] Last Admin: 06/15/17 09:19 Dose: 75 mg Insulin Human Regular (Humulin R Low) 0 units [facility] PRN Reason: Protocol Last Admin: 06/15/17 12:02 Dose: 1 units Lisinopril (Zestril) 5 mg PO DAILY [facility] Last Admin: 06/15/17 09:20 Dose: 5 mg Metoprolol Tartrate (Lopressor) 50 mg PO BID [facility] Last Admin: 06/15/17 09:19 Dose: 50 mg Nicotine (Nicoderm Cq) 1 patch TD DAILY [facility] Oxycodone HCl (Oxycodone Immediate Release Tab) 30 mg PO TID PRN PRN Reason: Pain, severe (8-10) Last Admin: 06/15/17 08:56 Dose: 30 mg Thiamine HCl (Vitamin B1 Tab) 100 mg PO DAILY [facility] Last Admin: 06/15/17 09:20 Dose: 100 mg - Labs Labs: 06/15/17 06:20 06/15/17 06:20 PT 12.4 SECONDS (9.4-12.5) 06/13/17 22:15 INR 1.09 (0.93-1.08) H 06/13/17 22:15 APTT 30.8 Seconds (25.1-36.5) 06/13/17 22:15 Attending/Attestation - Attestation I have personally seen and examined this patient.: Yes I have fully participated in the care of the patient.: Yes I have reviewed all pertinent clinical information, including history, physical exam and plan: Yes
[2017-06-15 13:13] LABS: FOLATE > 20.0 ng/mL
--- NOTE | 2017-06-15 14:55 | CP.PCM.CON ---
<Jaja Hameed - Last Filed: 06/15/17 14:58> History of Present Illness - History of Present Illness History of Present Illness: 76 y/o male with PMHx of diabetes, pneumonia, GI bleed, CAD with CABG/stents, and chronic kidney disease seen at bedside with attending Dr. Ellis after consultation for gangrenous changes to left foot 2nd toe. Patient is resting comfortably in bed in [facility]. He states his sugars generally run in the mid 100s and he checks it daily. He cannot recall his A1C but says he follows up regularly with Dr. Trinidad. Denies any history of foot ulcers or infections. States he is not having any pain in the left foot 2nd toe. States he had his circulation checked with Dr. Bradley. Denies F/C/N/V/CP/SOB PSH: CABG FamHx: noncontributory All: prasugrel Soc: 2-3 glasses wine/day; former smoker; denies drug use Review of Systems - Review of Systems All systems: reviewed and no additional remarkable complaints except (per HPI) Past Patient History - Infectious Disease Hx of Infectious Diseases: None - Tetanus Immunizations Tetanus Immunization: Unknown - Past Medical History & Family History Past Medical History?: Yes - Past Social History Smoking Status: Former Smoker - CARDIAC Hx Hypercholesterolemia: Yes Hx Hypertension: Yes - PULMONARY Hx Respiratory Disorders: Yes Hx Pneumonia: Yes - NEUROLOGICAL Hx Paralysis: No - HEENT Other/Comment: GLASSES - RENAL Hx Chronic Kidney Disease: No - ENDOCRINE/METABOLIC Hx Diabetes Mellitus Type 2: Yes - HEMATOLOGICAL/ONCOLOGICAL Hx Blood Transfusions: Yes Hx Blood Transfusion Reaction: No - INTEGUMENTARY Hx Dermatological Problems: No - MUSCULOSKELETAL/RHEUMATOLOGICAL Hx Falls: No - GASTROINTESTINAL Hx Gastrointestinal Disorders: Yes (GI BLEED 6-5-14) - GENITOURINARY/GYNECOLOGICAL Hx Genitourinary Disorders: No - PSYCHIATRIC Hx Substance Use: No - SURGICAL HISTORY Hx Open Heart Surgery: Yes (Bypass 7 years ago) - ANESTHESIA Hx Anesthesia: Yes Hx Anesthesia Reactions: No Meds Home Medications: Home Medication List Medication Instructions Recorded Confirmed Type Docusate [Colace] 100 mg PO BID #60 cap 06/17/17 Rx Docusate [Colace] 100 mg PO BID 30 Days cap 06/17/17 Rx Allergies/Adverse Reactions: Allergies Allergy/AdvReac Type Severity Reaction Status Date / Time prasugrel HCl [From Effient] AdvReac Severe ANAPHYLAXIS Verified 11/09/15 19:06 - Medications Medications: Current Medications Acetaminophen (Tylenol 325mg Tab) 650 mg PO Q4H PRN PRN Reason: Pain, Mild (1-3) Alprazolam (Xanax) 0.5 mg PO DAILY PRN; Protocol PRN Reason: Anxiety Last Admin: 06/14/17 20:12 Dose: 0.5 mg Aspirin (Ecotrin) 81 mg PO DAILY [facility] Last Admin: 06/15/17 09:20 Dose: 81 mg Atorvastatin Calcium (Lipitor) 20 mg PO DIN [facility] Last Admin: 06/14/17 17:59 Dose: 20 mg Clopidogrel Bisulfate (Plavix) 75 mg PO DAILY [facility] Last Admin: 06/15/17 09:19 Dose: 75 mg Insulin Human Regular (Humulin R Low) 0 units SC ACHS [facility] PRN Reason: Protocol Last Admin: 06/15/17 12:02 Dose: 1 units Lisinopril (Zestril) 5 mg PO DAILY [facility] Last Admin: 06/15/17 09:20 Dose: 5 mg Metoprolol Tartrate (Lopressor) 50 mg PO BID [facility] Last Admin: 06/15/17 09:19 Dose: 50 mg Nicotine (Nicoderm Cq) 1 patch TD DAILY [facility] Oxycodone HCl (Oxycodone Immediate Release Tab) 30 mg PO TID PRN PRN Reason: Pain, severe (8-10) Last Admin: 06/15/17 08:56 Dose: 30 mg Thiamine HCl (Vitamin B1 Tab) 100 mg PO DAILY [facility] Last Admin: 06/15/17 09:20 Dose: 100 mg Physical Exam - Constitutional Appears: Well, Non-toxic, No Acute Distress - Extremities Exam Additional comments: Lower extremity focused exam: Vasc: DP/PT pulses nonpalpable B/L. Temperature gradient warm to cool. CFT unable to be assessed to left foot 2nd digit; delayed but present to all remaining digits. Mild non pitting edema noted to bilateral lower extremities. Derm: Left foot 2nd digit distal tip exhibits darkened necrotic skin changes with hyperkeratotic roof. Post debridement, hyperkeratotic tissue remains at distal aspect of digit. No malodor, no fluctuance, no open lesions at present. Additional hyperkeratotic skin fissures noted to left medial hallux, right plantar hallux, right 2nd digit distal tip and right plantar midfoot. No ecchymosis noted. Nails cut to hygienic length x 10. Neuro: Protective sensation slightly diminished B/L Ortho: No tenderness to palpation of left foot 2nd digit - Neurological Exam Neurological exam: Alert, Oriented x3 - Psychiatric Exam Psychiatric exam: Normal Affect, Normal Mood Results - Vital Signs Recent Vital Signs: Last Vital Signs Temp 97.8 F 06/15/17 07:30 Pulse 70 06/15/17 09:20 Resp 20 06/15/17 07:30 BP 161/79 H 06/15/17 09:20 Pulse Ox 97 06/15/17 07:30 - Labs Result Diagrams: 06/15/17 06:20 06/15/17 06:20 Labs: Laboratory Results - last 24 hr 06/14/17 06/14/17 06/14/17 12:08 16:50 21:55 WBC RBC Hgb Hct MCV MCH MCHC RDW Plt Count MPV Sodium Potassium Chloride Carbon Dioxide Anion Gap BUN Creatinine Est GFR ( Amer) Est GFR (Non-Af Amer) POC Glucose (mg/dL) 86 113 H 122 H Random Glucose Calcium Total Bilirubin AST ALT Alkaline Phosphatase Total Protein Albumin Globulin Albumin/Globulin Ratio Vitamin B12 Folate 06/15/17 06/15/17 06/15/17 06:20 06:20 06:20 WBC 5.2 RBC 3.74 Hgb 12.3 L Hct 37.2 L MCV 99.5 MCH 32.9 MCHC 33.1 RDW 12.4 Plt Count 183 MPV 10.0 Sodium 142 Potassium 4.3 Chloride 104 Carbon Dioxide 28 Anion Gap 14 BUN 15 Creatinine 1.0 Est GFR ( Amer) > 60 Est GFR (Non-Af Amer) > 60 POC Glucose (mg/dL) Random Glucose 125 H Calcium 10.4 Total Bilirubin 0.6 AST 30 ALT 22 Alkaline Phosphatase 67 Total Protein 7.9 Albumin 4.0 Globulin 3.9 Albumin/Globulin Ratio 1.0 L Vitamin B12 751 Folate > 20.0 06/15/17 06/15/17 07:21 11:33 WBC RBC Hgb Hct MCV MCH MCHC RDW Plt Count MPV Sodium Potassium Chloride Carbon Dioxide Anion Gap BUN Creatinine Est GFR ( Amer) Est GFR (Non-Af Amer) POC Glucose (mg/dL) 145 H 170 H Random Glucose Calcium Total Bilirubin AST ALT Alkaline Phosphatase Total Protein Albumin Globulin Albumin/Globulin Ratio Vitamin B12 Folate Assessment & Plan - Assessment and Plan (Free Text) Assessment: 76 y/o diabetic male with left foot 2nd digit preulcerative lesion with necrotic skin changes secondary to diabetes with peripheral vascular disease Plan: Pt seen and evaluated at bedside with attending Dr. Ellis Chart, labs and vitals reviewed -afebrile, WBC 5.2 Aseptic excisional debridement of hyperkeratotic lesion of left 2nd digit with sterile 15 blade down to level of skin Wound culture taken of left foot 2nd toe X-rays of left foot 2nd digit ordered Wound cleaned with saline and dressed with betadine and DSD Fissures dressed with hydrogel, xeroform and DSD Podiatry will continue to follow patient while in house Thank you for allowing us to participant in this patient's care <Fuad Ellis - Last Filed: 06/18/17 10:19> Results - Vital Signs Recent Vital Signs: Last Vital Signs Temp 98.6 F 06/17/17 07:30 Pulse 60 06/17/17 09:55 Resp 16 06/17/17 07:30 BP 136/78 06/17/17 09:55 Pulse Ox 100 06/17/17 07:30 - Labs Result Diagrams: 06/15/17 06:20 06/15/17 06:20 Labs: Laboratory Results - last 24 hr 06/14/17 06/17/17 09:17 11:17 POC Glucose (mg/dL) 84 Influenza Type A Ab 1:16 H Influenza Type B Ab 1:32 H Attending/Attestation - Attestation I have personally seen and examined this patient.: Yes I have fully participated in the care of the patient.: Yes I have reviewed all pertinent clinical information: Yes
[2017-06-16] MEDS: oxyCODONE 30 mg Immediate Release Tab PO PRN ×4 (05:22→21:36)
[2017-06-16] MEDS: Insulin Reg-LOW-Coverage SC SCH ×3 (08:00→21:33)
[2017-06-16] MEDS ORDERED: Gadodiamide 287 MG/ML VIAL (20ML) IV ONE (08:40)
--- NOTE | 2017-06-16 09:38 | PN ---
DATE: 06/16/2017 SUBJECTIVE: The patient has no complaints of any chest pain or shortness of breath. He is much more awake and alert. He denies any pain. PHYSICAL EXAMINATION: VITAL SIGNS: Temperature is 98.5, pulse 60, blood pressure 154/84, respiration is 20. ASSESSMENT AND PLAN: 1. Delirium, improved. 2. Diabetes type 2. 3. Coronary artery disease, status post coronary artery bypass graft. 4. Chronic kidney disease stage III. 5. Peripheral arterial disease. PLAN: The patient has a history of significant peripheral arterial disease. I did speak to Dr. Jay Bradley regarding the patient's evaluation, a MRA of the lower extremities has been ordered to evaluate for ischemia. The patient is on Xanax as needed. He is on Zestril for hypertension. He is on Plavix for his peripheral arterial disease. He is on nicotine patch. He is on Lipitor for dyslipidemia. He is on aspirin, metoprolol for coronary artery disease. The patient is being followed by Dr. Goodrich as well. He is on oxycodone for pain. I did speak to the patient's yesterday to give an update. The patient also had lower extremity Doppler studies which were reviewed and showed signs of severe peripheral arterial disease and progression. Ronen Trinidda MD
--- NOTE | 2017-06-16 15:44 | CP.PCM.PN ---
Subjective - Date & Time of Evaluation Date of Evaluation: 06/16/17 Time of Evaluation: 15:43 - Subjective Subjective: 76 y/o male seen at bedside with attending Dr. Goodrich for left foot 2nd toe ulceration and bilateral skin fissures. Pt resting comfortably in bed at time of visit. Dressings intact to bilateral lower extremities. Pt admits to mild pain in the left 2nd toe. Denies F/C/N/V/CP/SOB. States he went for MRA earlier today. Objective - Vital Signs/Intake and Output Vital Signs (last 24 hours): Temp Pulse Resp BP Pulse Ox 98 F 69 69 H 172/91 H 18 L 06/16/17 08:04 06/16/17 10:30 06/16/17 08:04 06/16/17 10:30 06/16/17 08:04 Intake and Output: 06/16/17 06/16/17 06:59 18:59 Intake Total 780 Balance 780 - Medications Medications: Current Medications Acetaminophen (Tylenol 325mg Tab) 650 mg PO Q4H PRN PRN Reason: Pain, Mild (1-3) Alprazolam (Xanax) 0.5 mg PO DAILY PRN; Protocol PRN Reason: Anxiety Last Admin: 06/16/17 07:02 Dose: 0.5 mg Aspirin (Ecotrin) 81 mg PO DAILY [facility] Last Admin: 06/16/17 10:30 Dose: 81 mg Atorvastatin Calcium (Lipitor) 20 mg PO DIN [facility] Last Admin: 06/15/17 19:40 Dose: 20 mg Clopidogrel Bisulfate (Plavix) 75 mg PO DAILY [facility] Last Admin: 06/16/17 10:30 Dose: 75 mg Insulin Human Regular (Humulin R Low) 0 units SC [facility] PRN Reason: Protocol Last Admin: 06/16/17 12:38 Dose: 1 units Lisinopril (Zestril) 5 mg PO DAILY [facility] Last Admin: 06/16/17 10:30 Dose: 5 mg Metoprolol Tartrate (Lopressor) 50 mg PO BID [facility] Last Admin: 06/16/17 10:28 Dose: 50 mg Nicotine (Nicoderm Cq) 1 patch TD DAILY [facility] Last Admin: 06/16/17 10:30 Dose: 1 patch Oxycodone HCl (Oxycodone Immediate Release Tab) 30 mg PO TID PRN PRN Reason: Pain, severe (8-10) Last Admin: 06/16/17 10:30 Dose: 30 mg Thiamine HCl (Vitamin B1 Tab) 100 mg PO DAILY [facility] Last Admin: 06/16/17 10:30 Dose: 100 mg - Labs Labs: 06/15/17 06:20 06/15/17 06:20 PT 12.4 SECONDS (9.4-12.5) 06/13/17 22:15 INR 1.09 (0.93-1.08) H 06/13/17 22:15 APTT 30.8 Seconds (25.1-36.5) 06/13/17 22:15 - Constitutional Appears: Well, Non-toxic, No Acute Distress - Extremities Exam Additional comments: Lower extremity focused exam: Vasc: DP/PT pulses faintly palpable 1/4 B/L. Temperature gradient warm to cool. CFT unable to be assessed to left foot 2nd digit; delayed but present to all remaining digits. Mild non pitting edema noted to bilateral lower extremities. Derm: Left foot 2nd digit distal tip exhibits superficial ulceration, circular in shape approx 0.7cm in diameter and 0.2cm depth. Wound bed is mixed fibrogranular tissue. No malodor, no fluctuance, no open lesions at present. Hyperkeratotic skin fissures with mild black discoloration noted to left medial hallux, right plantar hallux, right 2nd digit distal tip and right plantar midfoot. No ecchymosis noted. Nails cut to hygienic length x 10. Neuro: Protective sensation slightly diminished B/L Ortho: Minimal tenderness to palpation of left foot 2nd digit - Neurological Exam Neurological Exam: Alert, Awake, Oriented x3 - Psychiatric Exam Psychiatric exam: Normal Affect, Normal Mood Assessment and Plan - Assessment and Plan (Free Text) Assessment: 76 y/o diabetic male with left foot 2nd digit ulceration secondary to diabetes mellitus with peripheral vascular disease Plan: Pt seen and evaluated at bedside with attending Dr. Goodrich Chart, labs and vitals reviewed -afebrile, WBC 5.2 Wound culture of left foot 2nd toe pending Extremity ABIs reveal severe bilateral tibial disease - L DEMOND 0.44 at rest, R DEMOND 0.48 at rest X-rays of left foot 2nd digit ordered, pending read Await results of lower extremity MRA Wound cleaned with saline and dressed with optifoam FF offloading shoe ordered to help with wound healing Podiatry will continue to follow patient while in house
[2017-06-16] MEDS: Hydrocerin(120 gm) TOP SCH (17:36)
[2017-06-17] MEDS: Insulin Reg-LOW-Coverage SC SCH (08:00)
[2017-06-17 08:50] VITALS: BP 136/78; PULSE 60; RESP 16; TEMP 98.6; O2SAT 100
--- NOTE | 2017-06-17 09:12 | PN ---
DATE: 06/17/2017 SUBJECTIVE: The patient has no complaints of any chest pain or shortness of breath. PHYSICAL EXAMINATION: VITAL SIGNS: Temperature is 98, pulse is 64, blood pressure is 131/82, respirations 20. GENERAL: The patient is lying in bed, flat, comfortable. HEENT: No oral lesion. Anicteric sclerae. Moist mucosa. NECK: No JVD, adenopathy, or thyromegaly. CARDIOVASCULAR: S1 and S2, regular. No murmurs, rubs, or gallops. LUNGS: Clear to auscultation bilaterally. No wheeze, rales, or rhonchi. ABDOMEN: Bowel sounds are positive, soft, nontender, and nondistended. EXTREMITIES: No cyanosis, clubbing or edema. ASSESSMENT: 1. Delirium, resolved. 2. Diabetes type 2. 3. Coronary artery disease. 4. Chronic kidney disease, stage III. 5. Peripheral arterial disease. PLAN: The patient had an MRI done. I did speak to Dr. Jay Bradley who reviewed the MRI. At this point, he does not feel that further intervention is needed. The patient has chronic ischemia. The patient does have a small dry gangrene in the second toe. The patient is not complaining of any pain. He is on Lipitor for dyslipidemia. He is on nicotine patch. The patient is on metoprolol. He is receiving Plavix for peripheral arterial disease. He is on Zestril. He is awake and alert. He is able to ambulate. We will discharge the patient home and follow up as an outpatient with his chief medical physicist. CONDITION: Stable. ACTIVITY: Increase as tolerated. The etiology of delirium was not ascertained. Ronen Trinidad MD
[2017-06-17] MEDS: oxyCODONE 30 mg Immediate Release Tab PO PRN (09:53)
[2017-06-17] MEDS ORDERED: POLYETHYLENE GLYCOL 3350 17 GM/Dose PACKET PO SCH (10:00)
--- NOTE | 2017-06-17 10:25 | CP.PCM.PN ---
Subjective - Date & Time of Evaluation Date of Evaluation: 06/17/17 Time of Evaluation: 10:22 - Subjective Subjective: 76 y/o male seen at bedside this morning with attending Dr. Goodrich for left foot 2nd toe ulceration and bilateral skin fissures. Pt resting comfortably in bed at time of visit. Dressings intact to bilateral lower extremities. Pt admits to mild pain in the left 2nd toe. Has no other pedal complaints. States he will be going home later today and is eager to follow up for wound care and management. Denies F/C/N/V/CP/SOB. Objective - Vital Signs/Intake and Output Vital Signs (last 24 hours): Temp Pulse Resp BP Pulse Ox 98.6 F 60 16 136/78 100 06/17/17 07:30 06/17/17 09:55 06/17/17 07:30 06/17/17 09:55 06/17/17 07:30 Intake and Output: 06/17/17 06/17/17 06:59 18:59 Intake Total 980 Balance 980 - Medications Medications: Current Medications Acetaminophen (Tylenol 325mg Tab) 650 mg PO Q4H PRN PRN Reason: Pain, Mild (1-3) Alprazolam (Xanax) 0.5 mg PO DAILY PRN; Protocol PRN Reason: Anxiety Last Admin: 06/16/17 07:02 Dose: 0.5 mg Aspirin (Ecotrin) 81 mg PO DAILY [facility] Last Admin: 06/17/17 09:55 Dose: 81 mg Atorvastatin Calcium (Lipitor) 20 mg PO DIN [facility] Last Admin: 06/16/17 17:36 Dose: 20 mg Clopidogrel Bisulfate (Plavix) 75 mg PO DAILY [facility] Last Admin: 06/17/17 09:52 Dose: 75 mg Docusate Sodium (Colace) 100 mg PO BID [facility] Last Admin: 06/17/17 09:56 Dose: 100 mg Insulin Human Regular (Humulin R Low) 0 units SC [facility] PRN Reason: Protocol Last Admin: 06/16/17 21:33 Dose: Not Given Lisinopril (Zestril) 5 mg PO DAILY [facility] Last Admin: 06/17/17 09:55 Dose: 5 mg Metoprolol Tartrate (Lopressor) 50 mg PO BID [facility] Last Admin: 06/17/17 09:54 Dose: 50 mg Multi-Ingredient Cream (Hydrocerin Cream) 0 ea TOP BID [facility] Last Admin: 06/16/17 17:36 Dose: 1 applic Nicotine (Nicoderm Cq) 1 patch TD DAILY [facility] Last Admin: 06/17/17 09:52 Dose: 1 patch Oxycodone HCl (Oxycodone Immediate Release Tab) 30 mg PO TID PRN PRN Reason: Pain, severe (8-10) Last Admin: 06/17/17 09:53 Dose: 30 mg Polyethylene Glycol (Miralax) 17 gm PO DAILY [facility] Thiamine HCl (Vitamin B1 Tab) 100 mg PO DAILY [facility] Last Admin: 06/17/17 09:55 Dose: 100 mg - Labs Labs: 06/15/17 06:20 06/15/17 06:20 PT 12.4 SECONDS (9.4-12.5) 06/13/17 22:15 INR 1.09 (0.93-1.08) H 06/13/17 22:15 APTT 30.8 Seconds (25.1-36.5) 06/13/17 22:15 - Constitutional Appears: Well, Non-toxic, No Acute Distress - Extremities Exam Additional comments: Lower extremity focused exam: Vasc: DP/PT pulses faintly palpable 1/4 B/L. Temperature gradient warm to cool. CFT unable to be assessed to left foot 2nd digit; delayed but present to all remaining digits. Mild non pitting edema noted to bilateral lower extremities. Mild to moderate rubor noted to bilateral forefeet. Derm: Sanguinous drainage noted on previous dressing to left 2nd toe. Left foot 2nd digit distal tip exhibits superficial ulceration, circular in shape approx 0.7cm in diameter and 0.2cm depth. Wound bed is mostly granular tissue. No malodor, no fluctuance, no open lesions at present. Hyperkeratotic skin fissures with mild black discoloration noted to left medial hallux, right plantar hallux, right 2nd digit distal tip and right plantar midfoot. No ecchymosis noted. Nails cut to hygienic length x 10. Neuro: Protective sensation slightly diminished B/L Ortho: Minimal tenderness to palpation of left foot 2nd digit - Neurological Exam Neurological Exam: Alert, Awake, Oriented x3 - Psychiatric Exam Psychiatric exam: Normal Affect, Normal Mood Assessment and Plan - Assessment and Plan (Free Text) Assessment: 76 y/o diabetic male with left foot 2nd digit ulceration secondary to diabetes mellitus with peripheral vascular disease Plan: Pt seen and evaluated at bedside with attending Dr. Goodrich Chart, labs and vitals reviewed -afebrile, NNL Wound culture of left foot 2nd toe pending - initial gram stain reveals no growth of organisms Extremity ABIs reveal severe bilateral tibial disease - L DEMOND 0.44 at rest, R DEMOND 0.48 at rest No further vascular intervention anticipated at this time X-rays of left foot 2nd digit reviewed by me- no distinct erosive osseous changes, no cortical breaks evident to left 2nd toe Wound cleaned with saline and dressed with optifoam FF offloading shoe ordered to help with wound healing Podiatry will continue to follow patient while in house Crest pad created and dispensed to help offload wound to left 2nd digit Upon discharge, pt encouraged to follow up in the wound care center with Dr. Goodrich/Rhonda within one week
[2017-06-17] MEDS: Hydrocerin(120 gm) TOP SCH (10:26)
--- NOTE | 2017-06-17 13:12 | RAD ---
PROCEDURE: Left Foot Radiographs. HISTORY: r/o OM COMPARISON: None. FINDINGS: BONES: There is no acute fracture or bone destruction. There is a well-circumscribed radiolucency in the middle phalanx of the 2nd toe. There is diffuse bone demineralization JOINTS: Normal. SOFT TISSUES: Normal. There is soft tissue swelling in the 2nd toe with irregularity. OTHER FINDINGS: None. IMPRESSION: No acute fracture or bone destruction. Radiolucency in the middle phalanx of the 2nd toe could be related to demineralization however osteomyelitis cannot be entirely excluded. Soft tissue ulceration and cellulitis in the 2nd toe. If clinically indicated, correlation with MRI may be performed for definitive evaluation.
== END 2017-06-17 14:51 | disposition home or self-care (01) | DRG 638 ==
LOC: ED 20:55 → ERH 06-14 01:59 → OBSVTOIN 06-14 08:41 → ERH 06-14 09:01 → 5RNO 06-14 09:20
PROVIDERS: ADMIT Internal Medicine Nephrology; ATTEND Internal Medicine Nephrology
PROC: 0HBNXZZ Excision of Left Foot Skin, External Approach (ICD-10-PCS; principal; 2017-06-14)
DX: E11.649 Type 2 diabetes mellitus with hypoglycemia without coma (principal); E11.52 Type 2 diabetes mellitus with diabetic peripheral angiopathy with gangrene; L97.529 Non-pressure chronic ulcer of other part of left foot with unspecified severity; E11.22 Type 2 diabetes mellitus with diabetic chronic kidney disease; E11.621 Type 2 diabetes mellitus with foot ulcer; E11.40 Type 2 diabetes mellitus with diabetic neuropathy, unspecified; I12.9 Hypertensive chronic kidney disease with stage 1 through stage 4 chronic kidney disease, or unspecified chronic kidney disease; N18.3 Chronic kidney disease, stage 3 (moderate); I25.10 Atherosclerotic heart disease of native coronary artery without angina pectoris; E78.5 Hyperlipidemia, unspecified; R41.0 Disorientation, unspecified; Z79.84 Long term (current) use of oral hypoglycemic drugs; Z79.82 Long term (current) use of aspirin; Z87.891 Personal history of nicotine dependence; Z95.1 Presence of aortocoronary bypass graft; Z95.5 Presence of coronary angioplasty implant and graft

== ENCOUNTER 2017-06-29 06:24 | Inpatient (IN) | payer MEDICARE ==
[2017-06-28 10:53] VITALS: BMI 27.3
[2017-06-29] MEDS ORDERED: Iodixanol 320 MG/ML 200 ML BOTTLE IV ONE (06:46)
[2017-06-29] MEDS ORDERED: Iodixanol 320 mg/ml 150 ml Bottle IV ONE (06:46)
[2017-06-29] MEDS ORDERED: Iodixanol 320 MG/ML 100 ML BOTTLE IV ONE (06:53)
[2017-06-29] MEDS ORDERED: HEPARIN SODIUM/NS 2,000 ML IV ONE (06:53)
[2017-06-29] MEDS ORDERED: Nitroglycerin 50mg in D5W 50 MG/250 ML BOTTLE IV ONE (06:53)
[2017-06-29] MEDS ORDERED: Midazolam 2 MG/2 ML VIAL ONE ×3 (06:53→08:29)
[2017-06-29] MEDS ORDERED: Lidocaine 2% Inj (20ml) ONE (07:05)
[2017-06-29 07:07] LABS: BASO # 0.01 K/mm3 (0.0-2.0); BASO % 0.1 % (0.0-3.0); EOS % 0.4 % (1.5-5.0); GRAN # 6.67 (1.4-6.5); GRAN % 77.9 % (50.0-68.0); HEMOGLOBIN 12.5 g/dL (14.0-18.0); LYMPH # 1.3 (1.2-3.4); LYMPH % 15.5 % (22.0-35.0); MEAN CELL VOLUME 95.1 fl (80.0-105.0); MEAN CORPUSCULAR HEMOGLOBIN 32.3 pg (25.0-35.0); MONO # 0.5 (0.1-0.6); MONO % 6.1 % (1.0-6.0); RBC 3.87 10^6/uL (3.5-6.1); RED CELL DISTRIBUTION WIDTH 12.1 % (11.5-14.5); WHITE BLOOD COUNT 8.6 10^3/ul (4.5-11.0)
[2017-06-29 07:33] LABS: INR 1.16 (0.93-1.08); PROTHROMBIN TIME 13.4 SECONDS (9.4-12.5)
[2017-06-29] MEDS ORDERED: DiphenhydrAMINE 50 mg/ml Inj ONE (08:39)
[2017-06-29] MEDS ORDERED: HYDROmorphone 2 mg/ml ISec IVP STA (09:36)
[2017-06-29] MEDS ORDERED: HYDROmorphone 2 mg/ml ISec ONE (09:37)
[2017-06-29] MEDS ORDERED: HYDROmorphone 2 mg/ml ISec IVP ONE (09:39)
[2017-06-29] MEDS ORDERED: HYDROmorphone 2 mg/ml ISec IVP PRN (09:42)
[2017-06-29] MEDS ORDERED: ALPRAZOLAM 0.5 MG PO SCH (10:00)
[2017-06-29] MEDS: CO Q10 100 MG PO SCH (10:50)
[2017-06-29] MEDS: Sodium Chloride 0.45% 1,000 ML IV SCH (14:10)
[2017-06-29] MEDS: Oxycodone/Acetaminophen 5/325 mg Tab PO PRN (14:46)
--- NOTE | 2017-06-29 16:15 | CP.PCM.CON ---
History of Present Illness - History of Present Illness History of Present Illness: Vascular surgery consult note for Dr. Siddiqui Consulted for PVD with chronic BL foot ulcers 76M with PMH of PVD, DMII and CAD s/p CABG and multiple angioplasty's of the BL lower extremities admitted for chronic BL foot ulcers and leg pain, worse on the left. MRA on 06/16/17 showed severe BL atherosclerotic disease. An angiogram was attempted by IR today through the right femoral access but they were unable to access the left vasculature. Patient was then admitted to the hospital and vascular surgery consulted. Patient has had BL LE pain for several years but the ulcers only appeared in the past few weeks. Patient complains of BL LE pain and chronic LE neuropathy but denies weakness, difficulty ambulating, fevers, chills, SOB, or any other symptoms. Review of Systems - Review of Systems All systems: reviewed and no additional remarkable complaints except (as per HPI ) Past Patient History - Infectious Disease Hx of Infectious Diseases: None - Tetanus Immunizations Tetanus Immunization: Unknown - Past Medical History & Family History Past Medical History?: Yes - Past Social History Smoking Status: Former Smoker (quit 2 months ago) Alcohol: Occasional Drugs: Denies Home Situation {Lives}: With Family - CARDIAC Hx Pacemaker: No Other/Comment: CAD, s/p CABG - PULMONARY Hx Respiratory Disorders: Yes Hx Pneumonia: Yes - NEUROLOGICAL Hx Paralysis: No Other/Comment: neuropathy BL LE - HEENT Other/Comment: GLASSES - RENAL Hx Chronic Kidney Disease: No - ENDOCRINE/METABOLIC Hx Endocrine Disorders: Yes Hx Diabetes Mellitus Type 2: Yes - HEMATOLOGICAL/ONCOLOGICAL Hx Blood Transfusions: Yes Hx Blood Transfusion Reaction: No - INTEGUMENTARY Hx Dermatological Problems: No - MUSCULOSKELETAL/RHEUMATOLOGICAL Hx Musculoskeletal Disorders: Yes - GASTROINTESTINAL Hx Gastrointestinal Disorders: Yes (GI BLEED 6-5-14) - GENITOURINARY/GYNECOLOGICAL Hx Genitourinary Disorders: No - PSYCHIATRIC Hx Emotional Abuse: No Hx Physical Abuse: No Hx Substance Use: No - SURGICAL HISTORY Hx Surgeries: Yes - ANESTHESIA Hx Anesthesia Reactions: No Hx Malignant Hyperthermia: No Meds Allergies/Adverse Reactions: Allergies Allergy/AdvReac Type Severity Reaction Status Date / Time prasugrel HCl [From Effient] AdvReac Severe ANAPHYLAXIS Verified 11/09/15 19:06 - Medications Medications: Current Medications Acetaminophen (Tylenol 325mg Tab) 650 mg PO Q4H PRN PRN Reason: Pain, Mild (1-3) Alprazolam (Xanax) 0.5 mg PO DAILY [facility] PRN Reason: Protocol Aspirin (Ecotrin) 81 mg PO DAILY [facility] Last Admin: 06/29/17 10:49 Dose: Not Given Atorvastatin Calcium (Lipitor) 20 mg PO DIN [facility] Docusate Sodium (Colace) 100 mg PO BID [facility] Last Admin: 06/29/17 10:49 Dose: Not Given Folic Acid (Folic Acid) 1 mg PO DAILY [facility] Last Admin: 06/29/17 10:50 Dose: Not Given Furosemide (Lasix) 40 mg PO Q48H [facility] Last Admin: 06/29/17 10:50 Dose: Not Given Glimepiride (Amaryl) 2 mg PO DAILY [facility] Last Admin: 06/29/17 10:49 Dose: Not Given Hydromorphone HCl (Dilaudid) 2 mg IVP Q6H PRN PRN Reason: Pain, severe (8-10) Sodium Chloride (Sodium Chloride 0.45%) 1,000 mls @ 80 mls/hr IV .[id number] [facility] Last Admin: 06/29/17 14:10 Dose: 80 mls/hr Isosorbide Mononitrate (Imdur Er) 30 mg PO DAILY [facility] Last Admin: 06/29/17 10:08 Dose: Not Given Lisinopril (Zestril) 5 mg PO DAILY [facility] Last Admin: 06/29/17 10:09 Dose: Not Given Metformin HCl (Glucophage) 850 mg PO BID [facility] Last Admin: 06/29/17 10:07 Dose: Not Given Metoprolol Tartrate (Lopressor) 50 mg PO BID [facility] Last Admin: 06/29/17 10:07 Dose: Not Given Co Q10] 100 Mg ( (Home Med)) 100 mg PO DAILY [facility] Last Admin: 06/29/17 10:50 Dose: Not Given Oxycodone/Acetaminophen (Percocet 5/325 Mg Tab) 1 tab PO Q6H PRN PRN Reason: Pain, moderate (4-7) Stop: 07/02/17 09:42 Last Admin: 06/29/17 14:46 Dose: 1 tab Pantoprazole Sodium (Protonix Ec Tab) 40 mg PO DAILY [facility] Physical Exam - Constitutional Appears: Well, Non-toxic, No Acute Distress - Head Exam Head Exam: ATRAUMATIC, NORMOCEPHALIC - Eye Exam Eye Exam: Normal appearance. absent: Conjunctival injection, Scleral icterus - ENT Exam ENT Exam: Mucous Membranes Moist, Normal Oropharynx - Respiratory Exam Respiratory Exam: NORMAL BREATHING PATTERN. absent: Accessory Muscle Use, Respiratory Distress - Cardiovascular Exam Cardiovascular Exam: RRR - GI/Abdominal Exam GI & Abdominal Exam: Soft. absent: Distended, Tenderness - Extremities Exam Extremities exam: Negative for: calf tenderness, pedal edema Additional comments: No palpable pulses, Dopplerable biphasic Pedal signals BL. feet Cool to the touch, with ulcers of the toes, dry gangrene of the second toe of the left foot - Neurological Exam Neurological exam: Alert, Oriented x3 - Psychiatric Exam Psychiatric exam: Normal Affect, Normal Mood - Skin Skin Exam: Dry, Normal Color, Warm (except as noted above) Results - Vital Signs Recent Vital Signs: Last Vital Signs Temp 98.1 F 06/29/17 12:00 Pulse 72 06/29/17 15:05 Resp 16 06/29/17 15:05 BP 166/86 H 06/29/17 15:05 Pulse Ox 92 L 06/29/17 06:40 - Labs Result Diagrams: 06/29/17 06:50 06/29/17 06:50 Labs: Laboratory Results - last 24 hr 06/29/17 06/29/17 06/29/17 06:50 06:50 06:50 WBC 8.6 D RBC 3.87 Hgb 12.5 L Hct 36.8 L MCV 95.1 D MCH 32.3 MCHC 34.0 RDW 12.1 Plt Count 240 MPV 10.0 Gran % 77.9 H Lymph % (Auto) 15.5 L [place] % (Auto) 6.1 H Eos % (Auto) 0.4 L Baso % (Auto) 0.1 Gran # 6.67 H Lymph # (Auto) 1.3 [place] # (Auto) 0.5 Eos # (Auto) 0.0 Baso # (Auto) 0.01 PT 13.4 H INR 1.16 H APTT 30.0 Sodium 143 Potassium 4.3 Chloride 102 Carbon Dioxide 28 Anion Gap 18 BUN 30 H Creatinine 1.4 Est GFR ( Amer) 60 Est GFR (Non-Af Amer) 50 POC Glucose (mg/dL) Random Glucose 180 H Calcium 11.0 H 06/29/17 11:17 WBC RBC Hgb Hct MCV MCH MCHC RDW Plt Count MPV Gran % Lymph % (Auto) [place] % (Auto) Eos % (Auto) Baso % (Auto) Gran # Lymph # (Auto) [place] # (Auto) Eos # (Auto) Baso # (Auto) PT INR APTT Sodium Potassium Chloride Carbon Dioxide Anion Gap BUN Creatinine Est GFR ( Amer) Est GFR (Non-Af Amer) POC Glucose (mg/dL) 132 H Random Glucose Calcium Assessment & Plan - Assessment and Plan (Free Text) Assessment: 76M with severe PVD, chronic BL toe ulcers Plan: F/U BL LE dopplers F/U angiogram report Patient may need arterial bypass--further recommendations pending imaging results PRN pain medications Management per primary Will continue to follow with you Thank you for this consult Discussed with Dr Artur Guerrier, PGY2
--- NOTE | 2017-06-29 20:12 | VASCULAR ---
PROCEDURE: Abdominal aortogram and bilateral lower extremity and bilateral selective catheter position HISTORY: Severe peripheral vascular disease. Left digital gangrene with bilateral rest pain. Diabetes. Smoker. Previous endovascular intervention approximately 2 years ago PHYSICIAN(S): Jay Bradley MD. TECHNIQUE: The relative risks and indications of the procedure were explained to the patient and his and consent obtained. The patient was hydrated prior to the procedure and the appropriate labs drawn. The patient was placed supine on the arteriogram table and the right groin prepped and draped in the usual sterile fashion. Conscious sedation and monitoring were provided throughout the procedure by a nurse. Via a right common femoral artery approach, a 5 Qatari sheath was placed in the right groin. Through the sheath and over a guidewire, a 5 Qatari flush catheter was placed in the abdominal aorta at the level of the renal arteries and a PA DSA abdominal aortogram performed. The catheter was pulled down to the aortic bifurcation and bilateral oblique DSA pelvic arteriograms performed. Overlapping bilateral lower extremity DSA arteriograms were obtained from the inguinal ligaments ankles. A 7 Qatari sheath was placed in the left external iliac artery. Multiple 5 Qatari catheters and various guidewires were used to attempt to negotiate the multi focal calcified disease in the left common femoral artery, left SFA common left popliteal arteries. Unfortunately, the distal critical occlusions in the left popliteal artery could not be crossed. Selective imaging of the left and right lower extremity arteries were performed. The sheath was removed and hemostasis obtained with a Mynx device. FINDINGS: There is a single right renal artery and 3 left renal artery is present. There appears to be a high-grade stenosis of and tortuosity of the right renal artery 1-2 cm from its origin. The right kidney is atrophic. There are 3 left renal arteries which are patent. There is diffuse calcification of the infrarenal abdominal aorta. The aorta is patent. Aortic bifurcation is patent. The common and external iliac arteries are patent. The internal iliac arteries are patent bilaterally. Right lower extremity: There is a severe polypoid calcified stenosis of the right common femoral artery bifurcation. This involves both the right SFA and profunda femoral artery origins. There is diffuse polypoid calcified disease of the right SFA. Multi focal areas of narrowing are seen. A self expanding stent is noted in the distal right SFA. Heavily calcified occlusion of the right popliteal artery below the stent is noted. There is reconstitution of the terminal right popliteal artery. Though poorly visualized, there appears to be calcified disease DENNIS runoff [place] dominant right peroneal artery and a diseased right posterior tibial artery. Proximal right posterior tibial artery appears to be occluded. Left lower extremity: There is calcified polypoid moderate disease in the left common femoral artery. The left profunda femoral artery is hypertrophied and calcified. There is an irregular calcified stenosis of the proximal left SFA. The left SFA is diffusely calcified. Multi focal severe stenoses are noted in the left SFA. Critical multi focal stenoses are seen throughout the left popliteal artery above and below the knee. There is 1 vessel runoff via the left peroneal artery. A left posterior tibial artery is calcified disease but reconstitutes distally. The left anterior tibial artery is occluded. A magnification view of the left foot demonstrates a reconstituted terminal left posterior tibial artery. The plantar arch is opacified. The left peroneal artery gives predominant supply to the plantar arch. There is reconstitution of a small disease left dorsalis pedis artery. IMPRESSION: 1. Calcified irregular multi focal disease involving the left common femoral artery, left SFA, left popliteal artery and trifurcation. There is single vessel runoff on the left involving a large peroneal artery. There is reconstitution of a calcified terminal left posterior tibial artery which supplies the plantar arch. 2. Atrophic right kidney with severe stenosis. 3. Right popliteal artery occlusion with severe right tibial occlusive disease.
[2017-06-29] MEDS: Insulin Reg-LOW-Coverage SC SCH (22:02)
--- NOTE | 2017-06-30 00:32 | CON ---
DATE: REASON FOR CONSULTATION: Bilateral painful toe ulcer, severe peripheral vascular disease. HISTORY OF PRESENT ILLNESS: Patient is a 76-year-old man, chronic smoker, diabetic, who was admitted for bilateral foot rest pain with toe ulcers. Patient has been known to have severe PID and had peripheral vascular intervention as early as 2012. At that time, he had atherectomy of the SFA of both legs, multiple times usually with advent of distal circulation. Patient continues to smoke. His last intervention was in 2015 in October of the right leg. Currently, he just had peripheral angiogram performed showing patent aorta and iliac disease, heavy calcification of both femoral, superficial femoral and profundus femoral artery, diffuse stenosis of both superficial femoral artery and popliteal artery, reconstitution of the single vessel on the left side, a peroneal artery on the right side with anterior tibial, posterior tibial and peroneal artery were all reconstituted. Patient also had coronary artery bypass performed at [facility] in 2011 utilizing a SANDERS and saphenous vein. PAST MEDICAL HISTORY: Patient has onset diabetes and he also has hypertension, hyperlipidemia and history of coronary artery bypass. REVIEW OF SYSTEMS: Other than what is stated in the present illness is unremarkable. SOCIAL HISTORY: He is a heavy smoker all his life, according to patient he has stopped a month ago. PHYSICAL EXAMINATION: GENERAL: A well-appearing man, in moderate distress. HEENT: Within normal limits. CHEST: Show a healed median sternotomy scar. ABDOMEN: Soft. EXTREMITIES: Reveal bilateral palpable brachial pulse, no palpable radial pulse, palpable femoral pulse and no distal pulses. The feet show dependent rubor. It is tender at the arch on both sides and multiple toe ulcers. His angiogram was reviewed, on the left side the SFA and popliteal are still open, it is diffusely stenotic, it is totally occluded at the popliteal bifurcation with reconstitution of the peroneal artery. On the right side, there is diffuse stenosis of the superficial femoral artery and the popliteal artery. There is a stent in the popliteal artery above the knee, which is occluded. He has reconstitution of the anterior tip, posterior tip and peroneal artery distal to the popliteal bifurcation. There does not appear to be any scar in his leg, but there is varicosity around his ankle. IMPRESSION: Diabetic,hypertensive, smoker with severe peripheral artery disease. PLAN: We will order vein mapping and cardiac clearance. Dana Siddiqui MD [facility] # [id number]
[2017-06-30 00:40] VITALS: O2SAT 99
[2017-06-30] MEDS: Oxycodone/Acetaminophen 5/325 mg Tab PO PRN ×2 (02:33→08:59)
[2017-06-30] MEDS: Sodium Chloride 0.45% 1,000 ML IV SCH ×2 (04:15→05:35)
[2017-06-30 05:46] VITALS: RESP 18; TEMP 97.8
[2017-06-30 06:23] LABS: HEMOGLOBIN 12.1 g/dL (14.0-18.0); MEAN CORPUSCULAR HEMOGLOBIN 32.2 pg (25.0-35.0); MEAN CORPUSCULAR HGB CONC 33.5 g/dl (31.0-37.0); MEAN PLATELET VOLUME 9.8 fl (7.0-11.0); RBC 3.76 10^6/uL (3.5-6.1); WHITE BLOOD COUNT 7.2 10^3/ul (4.5-11.0)
[2017-06-30] MEDS: Insulin Reg-LOW-Coverage SC SCH ×2 (07:41→11:57)
[2017-06-30 07:51] LABS: BLOOD UREA NITROGEN 18 mg/dL (7-21); CALCIUM 10.4 mg/dL (8.4-10.5); GFR AFRICAN-AMERICAN > 60; GFR NON-AFRICAN AMERICAN > 60
--- NOTE | 2017-06-30 08:51 | CP.PCM.CON ---
<Brianna Jaquez - Last Filed: 06/30/17 13:36> History of Present Illness - History of Present Illness History of Present Illness: PGY-[address] Villanueva Neurology: Confusion Mr Edna Lobo, 74M, chronic smoker, with PMHx of CAD s/p CABG/stents, diabetes, severe PAD s/p stents, GI bleed, and chronic kidney disease, was admitted for 10/10 bilateral foot pain at rest with toe ulcers. Peripheral angiogram was attemped by interventional radiologist, via R femoral access, but able to access L vasculature. The peripheral angiogram reviewed by vacular surgery consult showed (1) LEFT SFA and popliteal still open but diffusely stenotic, totally occluded at popliteal bifurcatiin with reconstitution of peroneal artery; (2) RIGHT side, diffuse stenosis of superficial femeroal artery and popliteal artery, a stent in R popliteal a above knee is occluded. He has reconstition of anterior tip, posterior top, and peroneal a distal to popliteal biburcation. Pt did not have angioplasty yesterday, and pt may need arterial bypass. Per RN notes, pt was AAOx3 and understood instructions and able to verbalize pain. by bedside states that pt has a brief confusion episode 5 days ago, that pt mistook a phone as glucose meter. did not observe any more confusion episodes. ROS - (+) bilateral LE pain, chronic LE neuropathy Denies weakness, ambulation difficult, Fever, chills, WOODY, change of vision, CP, SOB, N/V/D/C, abdominal pain, dysuria, urinary frequency. Pt has outpt podiatry PAST MEDICAL HISTORY: CAD s/p CABG and stents HTN/HLD Diabetes mellitus type 2 x 30 years history of GI bleed chronic kidney disease stage III. Heavy smoking, active PSH: CABG, [facility] 2011, SANDERS and saphenous veins atherectomy SFA of both legs 2013 R leg vascular intervention, 2016 orthopedic surgery. FAMILY HISTORY: Noncontributory. SH: Current smoker occasional alcohol abuse. Lives at home with . ALLERGIES: EFFIENT CAUSES SEVERE BLEEDING. Med: ASA, plavix, Metoprolol 50 BID, Lisinopril 5 daily, Crestor 5 once weekly Ranolazine, Imdur, lasix Cilostazol Metformin, glimepiride folic guy, colace, dexilant CoQ10 Flexeril Review of Systems - Review of Systems All systems: reviewed and no additional remarkable complaints except Review of Systems: as in HPI Past Patient History - Infectious Disease Hx of Infectious Diseases: None - Tetanus Immunizations Tetanus Immunization: Unknown - Past Medical History & Family History Past Medical History?: Yes - Past Social History Smoking Status: Former Smoker - CARDIAC Hx Pacemaker: No Other/Comment: CAD, s/p CABG - PULMONARY Hx Respiratory Disorders: Yes Hx Pneumonia: Yes - NEUROLOGICAL Hx Paralysis: No Other/Comment: neuropathy BL LE - HEENT Other/Comment: GLASSES - RENAL Hx Chronic Kidney Disease: No - ENDOCRINE/METABOLIC Hx Endocrine Disorders: Yes Hx Diabetes Mellitus Type 2: Yes - HEMATOLOGICAL/ONCOLOGICAL Hx Blood Transfusions: Yes Hx Blood Transfusion Reaction: No - INTEGUMENTARY Hx Dermatological Problems: No - MUSCULOSKELETAL/RHEUMATOLOGICAL Hx Falls: Yes - GASTROINTESTINAL Hx Gastrointestinal Disorders: Yes (GI BLEED 6--14) - GENITOURINARY/GYNECOLOGICAL Hx Genitourinary Disorders: No - PSYCHIATRIC Hx Substance Use: No - SURGICAL HISTORY Hx Surgeries: Yes - ANESTHESIA Hx Anesthesia Reactions: No Hx Malignant Hyperthermia: No Meds Home Medications: Home Medication List Medication Instructions Recorded Confirmed Type Gabapentin 300 mg PO HS #14 capsule 06/30/17 Rx Allergies/Adverse Reactions: Allergies Allergy/AdvReac Type Severity Reaction Status Date / Time prasugrel HCl [From Effient] AdvReac Severe ANAPHYLAXIS Verified 11/09/15 19:06 - Medications Medications: Current Medications Acetaminophen (Tylenol 325mg Tab) 650 mg PO Q4H PRN PRN Reason: Pain, Mild (1-3) Alprazolam (Xanax) 0.5 mg PO Q12 [facility] PRN Reason: Protocol Last Admin: 06/29/17 21:11 Dose: 0.5 mg Aspirin (Ecotrin) 81 mg PO DAILY [facility] Last Admin: 06/29/17 10:49 Dose: Not Given Atorvastatin Calcium (Lipitor) 20 mg PO DIN [facility] Last Admin: 06/29/17 17:12 Dose: 20 mg Docusate Sodium (Colace) 100 mg PO BID [facility] Last Admin: 06/29/17 17:12 Dose: 100 mg Folic Acid (Folic Acid) 1 mg PO DAILY [facility] Last Admin: 06/29/17 10:50 Dose: Not Given Furosemide (Lasix) 40 mg PO Q48H [facility] Last Admin: 06/29/17 10:50 Dose: Not Given Glimepiride (Amaryl) 2 mg PO DAILY [facility] Last Admin: 06/29/17 10:49 Dose: Not Given Hydromorphone HCl (Dilaudid) 2 mg IVP Q6H PRN PRN Reason: Pain, severe (8-10) Last Admin: 06/30/17 04:14 Dose: 2 mg Sodium Chloride (Sodium Chloride 0.45%) 1,000 mls @ 80 mls/hr IV .[id number] [facility] Last Admin: 06/30/17 05:35 Dose: Not Given Insulin Human Regular (Humulin R Low) 0 units SC ACHS [facility] PRN Reason: Protocol Last Admin: 06/30/17 07:41 Dose: Not Given Isosorbide Mononitrate (Imdur Er) 30 mg PO DAILY [facility] Last Admin: 06/29/17 10:08 Dose: Not Given Lisinopril (Zestril) 5 mg PO DAILY [facility] Last Admin: 06/29/17 10:09 Dose: Not Given Metoprolol Tartrate (Lopressor) 50 mg PO BID [facility] Last Admin: 06/29/17 17:12 Dose: 50 mg Co Q10] 100 Mg ( (Home Med)) 100 mg PO DAILY [facility] Last Admin: 06/29/17 10:50 Dose: Not Given Oxycodone/Acetaminophen (Percocet 5/325 Mg Tab) 1 tab PO Q6H PRN PRN Reason: Pain, moderate (4-7) Stop: 07/02/17 09:42 Last Admin: 06/30/17 02:33 Dose: 1 tab Pantoprazole Sodium (Protonix Ec Tab) 40 mg PO DAILY [facility] Physical Exam - Constitutional Appears: No Acute Distress - Head Exam Head Exam: ATRAUMATIC, NORMAL INSPECTION, NORMOCEPHALIC - Eye Exam Eye Exam: EOMI, Normal appearance, PERRL. absent: Scleral icterus Pupil Exam: NORMAL ACCOMODATION - ENT Exam ENT Exam: Mucous Membranes Moist - Neck Exam Additional comments: supple - Respiratory Exam Respiratory Exam: Clear to Auscultation Bilateral, NORMAL BREATHING PATTERN - Cardiovascular Exam Cardiovascular Exam: REGULAR RHYTHM, +S1, +S2 - GI/Abdominal Exam GI & Abdominal Exam: Normal Bowel Sounds, Soft. absent: Tenderness - Extremities Exam Extremities exam: Negative for: calf tenderness - Neurological Exam Neurological exam: Alert, CN II-XII Intact, Oriented x3 Additional comments: Speech: No aphasia Recall: 2/3 Motor: 5/5 all extremities sensory: decrease in LE b/l babinski: downgoing rapid alternating movement: intact finger to nose coordination: intact, no tremor No pronator drift, Negative rhomberg - Psychiatric Exam Psychiatric exam: Normal Affect, Normal Mood - Skin Skin Exam: Dry, Warm Additional comments: scaars on legs Results - Vital Signs Recent Vital Signs: Last Vital Signs Temp 97.8 F 06/30/17 05:45 Pulse 68 06/30/17 05:45 Resp 18 06/30/17 05:45 BP 162/80 H 06/30/17 06:08 Pulse Ox 99 06/30/17 05:45 - Labs Result Diagrams: 06/30/17 06:00 06/30/17 06:00 Labs: Laboratory Results - last 24 hr 06/29/17 06/29/17 06/29/17 11:17 17:01 21:55 WBC RBC Hgb Hct MCV MCH MCHC RDW Plt Count MPV Sodium Potassium Chloride Carbon Dioxide Anion Gap BUN Creatinine Est GFR ( Amer) Est GFR (Non-Af Amer) POC Glucose (mg/dL) 132 H 105 182 H Random Glucose Calcium 06/30/17 06/30/17 06/30/17 06:00 06:00 07:22 WBC 7.2 RBC 3.76 Hgb 12.1 L Hct 36.1 L MCV 96.0 MCH 32.2 MCHC 33.5 RDW 12.0 Plt Count 204 MPV 9.8 Sodium 140 Potassium 4.8 Chloride 105 Carbon Dioxide 24 Anion Gap 16 BUN 18 Creatinine 1.1 Est GFR ( Amer) > 60 Est GFR (Non-Af Amer) > 60 POC Glucose (mg/dL) 128 H Random Glucose 133 H Calcium 10.4 Assessment & Plan - Assessment and Plan (Free Text) Plan: Neurology: Confusion Mr Edna Lobo, 74M, chronic smoker, with PMHx of CAD s/p CABG/stents, diabetes, severe PAD s/p stents, GI bleed, and chronic kidney disease, was admitted for 10/10 bilateral foot pain at rest with toe ulcers. Pt did not have angioplasty yesterday because of severe PAD, and pt may need arterial bypass. Neurology was consulted for an episodic confusion that happen 5 days ago with spointanous resolution and redirection from family Transient confusion likely secondary to mild hypertensive urgency, medication side effect, in the setting of chronic disease, diabetes, and severe PAD - maintain SBP 130-140 - Managed per vascular surgery team - consider thiamine 100 daily - Add gabapentin 300 HS for better pain control and reduce need of opioids - follow up with neurology within 1 week s/r/d/w Dr. Villanueva <Jerrell Villanueva - Last Filed: 06/30/17 13:40> Results - Vital Signs Recent Vital Signs: Last Vital Signs Temp 97.8 F 06/30/17 05:45 Pulse 72 06/30/17 09:01 Resp 18 06/30/17 05:45 BP 170/80 H 06/30/17 09:01 Pulse Ox 99 06/30/17 05:45 - Labs Result Diagrams: 06/30/17 06:00 06/30/17 06:00 Labs: Laboratory Results - last 24 hr 06/29/17 06/29/17 06/30/17 17:01 21:55 06:00 WBC 7.2 RBC 3.76 Hgb 12.1 L Hct 36.1 L MCV 96.0 MCH 32.2 MCHC 33.5 RDW 12.0 Plt Count 204 MPV 9.8 Sodium Potassium Chloride Carbon Dioxide Anion Gap BUN Creatinine Est GFR ( Amer) Est GFR (Non-Af Amer) POC Glucose (mg/dL) 105 182 H Random Glucose Calcium 06/30/17 06/30/17 06:00 07:22 WBC RBC Hgb Hct MCV MCH MCHC RDW Plt Count MPV Sodium 140 Potassium 4.8 Chloride 105 Carbon Dioxide 24 Anion Gap 16 BUN 18 Creatinine 1.1 Est GFR ( Amer) > 60 Est GFR (Non-Af Amer) > 60 POC Glucose (mg/dL) 128 H Random Glucose 133 H Calcium 10.4 Attending/Attestation - Attestation I have personally seen and examined this patient.: Yes I have fully participated in the care of the patient.: Yes I have reviewed all pertinent clinical information: Yes
[2017-06-30 09:03] VITALS: BP 170/80; PULSE 72
[2017-06-30] MEDS: CO Q10 100 MG PO SCH (09:09)
--- NOTE | 2017-06-30 09:43 | CP.PCM.PN ---
Subjective - Date & Time of Evaluation Date of Evaluation: 06/30/17 Time of Evaluation: 07:30 - Subjective Subjective: Patient seen and examined at bedside this AM. Patient states that his pain is unchanged and denies any fevers, chills, CP or shortness of breath. Patient is being discharged today to follow up with a vascular surgeon known to him at [facility]. Objective - Vital Signs/Intake and Output Vital Signs (last 24 hours): Temp Pulse Resp BP Pulse Ox 97.8 F 72 18 170/80 H 99 06/30/17 05:45 06/30/17 09:01 06/30/17 05:45 06/30/17 09:01 06/30/17 05:45 Intake and Output: 06/30/17 06/30/17 06:59 18:59 Intake Total 1200 Output Total 700 Balance 500 - Medications Medications: Current Medications Acetaminophen (Tylenol 325mg Tab) 650 mg PO Q4H PRN PRN Reason: Pain, Mild (1-3) Alprazolam (Xanax) 0.5 mg PO Q12 [facility] PRN Reason: Protocol Last Admin: 06/30/17 09:00 Dose: 0.5 mg Aspirin (Ecotrin) 81 mg PO DAILY [facility] Last Admin: 06/30/17 09:01 Dose: 81 mg Atorvastatin Calcium (Lipitor) 20 mg PO DIN [facility] Last Admin: 06/29/17 17:12 Dose: 20 mg Docusate Sodium (Colace) 100 mg PO BID [facility] Last Admin: 06/30/17 09:01 Dose: 100 mg Folic Acid (Folic Acid) 1 mg PO DAILY [facility] Last Admin: 06/30/17 09:02 Dose: 1 mg Furosemide (Lasix) 40 mg PO Q48H [facility] Last Admin: 06/29/17 10:50 Dose: Not Given Glimepiride (Amaryl) 2 mg PO DAILY [facility] Last Admin: 06/30/17 09:01 Dose: 2 mg Hydromorphone HCl (Dilaudid) 2 mg IVP Q6H PRN PRN Reason: Pain, severe (8-10) Last Admin: 06/30/17 09:14 Dose: 2 mg Sodium Chloride (Sodium Chloride 0.45%) 1,000 mls @ 80 mls/hr IV .[id number] [facility] Last Admin: 06/30/17 05:35 Dose: Not Given Insulin Human Regular (Humulin R Low) 0 units SC ACHS [facility] PRN Reason: Protocol Last Admin: 06/30/17 07:41 Dose: Not Given Isosorbide Mononitrate (Imdur Er) 30 mg PO DAILY [facility] Last Admin: 06/30/17 09:02 Dose: 30 mg Lisinopril (Zestril) 5 mg PO DAILY [facility] Last Admin: 06/30/17 09:01 Dose: 5 mg Metoprolol Tartrate (Lopressor) 50 mg PO BID [facility] Last Admin: 06/30/17 09:01 Dose: 50 mg Co Q10] 100 Mg ( (Home Med)) 100 mg PO DAILY [facility] Last Admin: 06/30/17 09:09 Dose: Not Given Oxycodone/Acetaminophen (Percocet 5/325 Mg Tab) 1 tab PO Q6H PRN PRN Reason: Pain, moderate (4-7) Stop: 07/02/17 09:42 Last Admin: 06/30/17 08:59 Dose: 1 tab Pantoprazole Sodium (Protonix Ec Tab) 40 mg PO DAILY [facility] Last Admin: 06/30/17 09:02 Dose: 40 mg - Labs Labs: 06/30/17 06:00 06/30/17 06:00 PT 13.4 SECONDS (9.4-12.5) H 06/29/17 06:50 INR 1.16 (0.93-1.08) H 06/29/17 06:50 APTT 30.0 Seconds (25.1-36.5) 06/29/17 06:50 - Constitutional Appears: Well, Non-toxic, No Acute Distress - Head Exam Head Exam: ATRAUMATIC, NORMOCEPHALIC - Eye Exam Eye Exam: Normal appearance. absent: Conjunctival injection, Scleral icterus - ENT Exam ENT Exam: Mucous Membranes Moist, Normal Oropharynx - Respiratory Exam Respiratory Exam: NORMAL BREATHING PATTERN. absent: Accessory Muscle Use, Respiratory Distress - GI/Abdominal Exam GI & Abdominal Exam: absent: Distended - Extremities Exam Extremities Exam: absent: Calf Tenderness Additional comments: non-palpable Pedal pulses, feet cool to the touch - Neurological Exam Neurological Exam: Alert, Awake, Oriented x3 - Psychiatric Exam Psychiatric exam: Normal Affect, Normal Mood Assessment and Plan - Assessment and Plan (Free Text) Assessment: 76M with severe PVD with non-healing BL foot ulcers Plan: -Patient deferring further evaluation and care at this present admission and is going to follow up with a vascular surgeon at [facility] -Thank you for this consult. Please reach out to Dr. Siddiqui or the surgery team for any further questions or concerns -Patient should go the ER for any sudden worsening of symptoms, persistent fever >100.4, shortness of breath, chest pain, or any other concerning symptoms. Ammy Guerrier, PGY2
[2017-06-30] MEDS ORDERED: Pantoprazole 40 mg EC Tab PO SCH (10:00)
[2017-06-30] MEDS ORDERED: HYDROmorphone 2 mg/ml ISec IVP PRN (10:01)
--- NOTE | 2017-06-30 19:19 | US ---
HISTORY: Leg pain and swelling. Evaluate for DVT PHYSICIAN(S): Jay Bradley MD. TECHNIQUE: Duplex sonography with graded compression was used to evaluate the greater saphenous veins bilaterally for bypass. FINDINGS: The right greater saphenous vein measures 5 mm at the junction. The right greater saphenous vein is atretic in the thigh and knee measuring 2mm. The right greater saphenous vein in the calf is also small, measuring 2-3 mm. The left greater saphenous vein at the junction measures 6 mm. The left greater saphenous vein in the midthigh is atretic measuring 2 mm. The left greater saphenous vein at the knee measures 2 mm. The left greater saphenous vein in the calf is atretic. IMPRESSION: The greater saphenous veins bilaterally are atretic in appearance.
--- NOTE | 2017-07-01 04:31 | HP ---
HISTORY OF PRESENT ILLNESS: This is a 76-year-old male who is coming in to the hospital because of an elective angiogram of his leg done by Dr. Jay Bradley. Patient was found to have severe peripheral arterial disease, and it was felt that he needed a peripheral intervention with possible bypass. Patient has bilateral claudication. found to develop in the left second toe. The patient had atherectomy of the SFA of both legs multiple times in the past. He also had cardiac surgery with a coronary artery bypass that was done in [place] in 2011 using a SANDERS and saphenous vein. The patient was seen by Dr. Siddiqui for evaluation. He does have episodes of confusion. This may be related to his pain issues. He is not complaining of any headache. No dizziness. No nausea. No vomiting. No fever. ALLERGIES: PRASUGREL. PAST MEDICAL HISTORY: Diabetes type II, pneumonia, coronary artery disease, CKD stage 3, and chronic back pain. SOCIAL HISTORY: He is a former smoker. He is not currently smoking. He denies alcohol or drugs. Lives with his . FAMILY HISTORY: Noncontributory. MEDICATIONS: Have been reviewed. PHYSICAL EXAMINATION: VITAL SIGNS: Temperature is 97.8, pulse is 68, blood pressure 162/80, respirations 18, and O2 saturation 99%. GENERAL: The patient lying in bed, uncomfortable, and in no acute distress. HEENT: Atraumatic and normocephalic. Anicteric sclerae. Moist mucosa. [place] conjunctivae. No oral lesions. NECK: No JVD, anterior and posterior adenopathy, thyromegaly, or bruits. CARDIOVASCULAR: S1 and S2 regular. No murmur, rubs, or gallop. LUNGS: Clear to auscultation bilaterally. No wheezes, rales, or rhonchi. ABDOMEN: Bowel sounds are positive. Soft, nontender and nondistended. No hepatosplenomegaly. No rebound and no guarding EXTREMITIES: No cyanosis, clubbing, or edema. NEUROLOGIC: No facial asymmetry. Tongue is midline. No uvula deviation. Power is 5/5 upper extremity and lower extremity. Sensation intact in upper extremity and lower extremity. PSYCHIATRIC: He is awake, alert and oriented x3. No anxiety or depression. He has normal affect. GENITOURINARY: No CVA tenderness. VASCULAR: 2+ pulses in the carotid pulses and pedal pulses. SKIN: No erythema or nodules SPINE: Shows normal curvature. LABORATORY DATA: White count 8.6, hemoglobin 12.5. INR is 1.1. His calcium is 11, sodium is 143, potassium is 4.3. ASSESSMENT: 1. Severe peripheral arterial disease. 2. Diabetes type 2. 3. Coronary artery disease, status post coronary artery bypass graft. 4. Chronic kidney disease stage III. 5. Hypertension. PLAN: The patient was seen by Dr. Siddiqui for his peripheral arterial disease. Vein mapping has been done. The patient's said that she would like to get a second opinion. I told her I will discharge the patient home and have the patient got to for further evaluation. The patient is feeling comfortable when I saw him this morning. I did speak to the patient's today and yesterday. The patient is to continue with his pain medication of oxycodone. He is on Xanax as needed. The patient was given Dilaudid after his procedure. He was placed on a carbohydrate-restricted diet. Ronen Trinidad MD
--- NOTE | 2017-07-01 12:20 | EEG ---
DATE: 07/01/2017 Technical Information: Electrodes were placed according to the 10-20 [employer] electrode system by office technologist. Total of 23 electrodes (21 EEG and 2 EKG) were placed. EEG activity was digitally recorded referentially to P1/P2 or A1/A2 electrodes. Continuous monitoring with EEG was performed using digital analysis for spike detection. The [employer] spike and seizure detection algorithms were used for digital EEG analysis throughout the monitoring period to screen the EEG in real-time and sophia the data file with pointers to electrographic seizures and interictal discharges. EEG was screened for electrographic seizures and interictal discharges by a technologist. Physician, epileptologist reviewed detections as well as extensive random samples and whole EEG study in detail. Digital EEG Analysis: Was carried out including FFT (Fast Fourier Transform), R2D2 (Rhythmicity Run Detection and Display), Relative Asymmetry Spectrogram, and voltage plot by the [employer]. The qualitative EEG analysis and the voltage plot mapping were used for detection of foci of paroxysmal and abnormal electrical cortical activity. General Description: Background Rhythm: There is a well-formed, 8-10 Hz posterior dominant rhythm that is reactive, symmetric, and attenuates with eye opening. There was a normal amount of frontal beta noted bilaterally. There is no sleep recorded. Activation Procedures: Photic stimulation: There is no driving noted. Hyperventilation: There is slowing noted that is self-remitted. Abnormal Activity: There are no focal epileptiform discharges noted. No clinical or subclinical seizures noted. Impression: This is a normal awake and drowsy EEG. Clinical correlation is required. Elmo Beasley MD
== END 2017-06-30 12:35 | disposition home or self-care (01) | DRG 301 ==
LOC: SDSVAS 06:24 → 2RSO 10:32
PROVIDERS: ADMIT Internal Medicine Nephrology; ATTEND Internal Medicine Nephrology
PROC: B41DYZZ Fluoroscopy of Aorta and Bilateral Lower Extremity Arteries using Other Contrast (ICD-10-PCS; principal; 2017-06-29)
DX: E11.51 Type 2 diabetes mellitus with diabetic peripheral angiopathy without gangrene (principal); E11.22 Type 2 diabetes mellitus with diabetic chronic kidney disease; E11.42 Type 2 diabetes mellitus with diabetic polyneuropathy; N18.3 Chronic kidney disease, stage 3 (moderate); I12.9 Hypertensive chronic kidney disease with stage 1 through stage 4 chronic kidney disease, or unspecified chronic kidney disease; I25.10 Atherosclerotic heart disease of native coronary artery without angina pectoris; E11.621 Type 2 diabetes mellitus with foot ulcer; L97.529 Non-pressure chronic ulcer of other part of left foot with unspecified severity; L97.519 Non-pressure chronic ulcer of other part of right foot with unspecified severity; E78.5 Hyperlipidemia, unspecified; F17.210 Nicotine dependence, cigarettes, uncomplicated; Z95.1 Presence of aortocoronary bypass graft; Z95.5 Presence of coronary angioplasty implant and graft

== ENCOUNTER 2017-07-06 19:04 | Emergency (ER) | payer MEDICARE, OTHER ==
[2017-07-06 19:05] VITALS: BMI 27.3
[2017-07-06] MEDS: Sodium Chloride 0.9% 1,000 ML IV SCH (20:04)
--- NOTE | 2017-07-06 20:19 | ED PDOC ---
Arrival/HPI - General Chief Complaint: Altered Mental Status Time Seen by Provider: 07/06/17 19:25 Historian: Patient - History of Present Illness Narrative History of Present Illness (Text): 07/06/17 19:30 Edna Lobo is a 76 year old male brought in by EMS, whose past medical history includes type II diabetes, CAD< chronic kidney disease, and pneumonia, who presents to the emergency department complaining of AMS today as per patient's . Patient has apparently been confused for the past few days with associated fever. Patient states that he experiences intermittent dizziness. Patient is aware that he is in the hospital but appears to be confused with the time. Patient denies any neck pain, back pain, abdominal pain , chest pain, shortness of breath, or any other complaint at this time. Time/Duration: 4-6 hours Symptom Onset: Gradual Symptom Course: Unchanged Activities at Onset: Light Context: Home Past Medical History - Provider Review Nursing Documentation Reviewed: Yes - Infectious Disease Hx of Infectious Diseases: None - Tetanus Immunization Tetanus Immunization: Unknown - Cardiac Hx Pacemaker: No Other/Comment: CAD, s/p CABG - Pulmonary Hx Respiratory Disorders: Yes Hx Pneumonia: Yes - Neurological Hx Paralysis: No Other/Comment: neuropathy BL LE - HEENT Other/Comment: GLASSES - Renal Hx Renal Disorder: No - Endocrine/Metabolic Hx Endocrine Disorders: Yes Hx Diabetes Mellitus Type 2: Yes - Hematological/Oncological Hx Blood Transfusions: Yes Hx Blood Transfusion Reaction: No - Integumentary Hx Dermatological Disorder: No - Musculoskeletal/Rheumatological Hx Falls: Yes - Gastrointestinal Hx Gastrointestinal Disorders: Yes (GI BLEED 6-5-14) - Genitourinary/Gynecological Hx Genitourinary Disorders: No - Psychiatric Hx Emotional Abuse: No Hx Physical Abuse: No Hx Substance Use: No - Surgical History Hx Cardiac Catheterization: Yes - Anesthesia Hx Anesthesia Reactions: No Hx Malignant Hyperthermia: No - Suicidal Assessment Feels Threatened In Home Enviroment: No Family/Social History - Physician Review Nursing Documentation Reviewed: Yes Family/Social History: No Known Family HX Smoking Status: Former Smoker Hx Alcohol Use: No Hx Substance Use: No Hx Substance Use Treatment: No Allergies/Home Meds Allergies/Adverse Reactions: Allergies prasugrel HCl [From Effient] Adverse Reaction (Severe, Verified 11/09/15 19:06) ANAPHYLAXIS Pt states he began to bleed out when he took this medication and no longer takes it. Home Medications: Home Meds Medication Instructions Recorded Confirmed Alprazolam [Xanax] 0.5 mg PO BID 07/07/17 07/07/17 Cilostazol [Pletal] 50 mg PO BID 07/07/17 07/07/17 Clopidogrel [Plavix] 75 mg PO DAILY 07/07/17 07/07/17 Cyclobenzaprine [Cyclobenzaprine 10 mg PO BID 07/07/17 07/07/17 HCl] Docusate [Colace] 100 mg PO DAILY 07/07/17 07/07/17 Furosemide [Lasix] 40 mg PO QOTHERDAY 07/07/17 07/07/17 Gabapentin [Neurontin] 300 mg PO HS 07/07/17 07/07/17 Glimepiride [Amaryl] 2 mg PO DAILY 07/07/17 07/07/17 Lactulose [Generlac] 10 gm PO BID 07/07/17 07/07/17 Lisinopril [Zestril] 5 mg PO DAILY 07/07/17 07/07/17 Metoprolol Tartrate [Lopressor] 50 mg PO BID 07/07/17 07/07/17 Naloxegol Oxalate [Movantik] 25 mg PO DAILY 07/07/17 07/07/17 Ranolazine [Ranexa] 500 mg PO BID 07/07/17 07/07/17 metFORMIN [glucOPHAGE] 850 mg PO BID 07/07/17 07/07/17 oxyCODONE [oxyCODONE Immediate 30 mg PO QID 07/07/17 07/07/17 Release Tab] Review of Systems - Physician Review All systems were reviewed & negative as marked: Yes - Review of Systems Constitutional: Fevers. absent: Night Sweats Eyes: absent: Vision Changes ENT: absent: Hearing Changes Respiratory: absent: SOB, Cough Cardiovascular: absent: Chest Pain Gastrointestinal: absent: Abdominal Pain Genitourinary Male: absent: Dysuria, Frequency Musculoskeletal: absent: Back Pain, Neck Pain Skin: absent: Rash, Pruritis Neurological: Dizziness. absent: Headache Endocrine: absent: Diaphoresis Hemo/Lymphatic: absent: Adenopathy Psychiatric: absent: Anxiety, Depression Physical Exam Vital Signs Reviewed: Yes Vital Signs Temp Pulse Resp BP Pulse Ox 07/07/17 14:00 99.2 F 90 16 161/89 H 99 07/07/17 12:15 98.9 F 92 H 18 156/80 H 98 07/07/17 10:00 88 18 149/88 98 07/07/17 08:00 99 F 80 20 160/80 H 100 07/07/17 07:28 77 19 140/82 99 07/07/17 03:09 75 18 142/71 95 07/07/17 00:30 82 17 157/88 H 94 L 07/06/17 22:00 99.7 F H 87 18 155/70 H 98 07/06/17 20:04 101.2 F H 07/06/17 19:57 101.2 F H 95 H 18 160/88 H 95 Temperature: Febrile Blood Pressure: Hypertensive Pulse: Tachycardic Respiratory Rate: Normal Appearance: Positive for: Well-Appearing, Non-Toxic, Comfortable Pain Distress: None Mental Status: Positive for: Alert and Oriented X 3 - Systems Exam Head: Present: Atraumatic, Normocephalic Pupils: Present: PERRL Extroacular Muscles: Present: EOMI Conjunctiva: Present: Normal Mouth: Present: Moist Mucous Membranes Neck: Present: Normal Range of Motion Respiratory/Chest: Present: Clear to Auscultation, Good Air Exchange. No: Respiratory Distress, Accessory Muscle Use Cardiovascular: Present: Regular Rate and Rhythm, Normal S1, S2. No: Murmurs Abdomen: Present: Normal Bowel Sounds. No: Tenderness, Distention, Peritoneal Signs Back: Present: Normal Inspection Upper Extremity: Present: Normal Inspection. No: Cyanosis, Edema Lower Extremity: Present: Normal Inspection. No: Edema Neurological: Present: GCS=15, CN II-XII Intact, Speech Normal Skin: Present: Warm, Dry, Normal Color. No: Rashes Psychiatric: Present: Alert, Other (no motor or sensory deficits). No: Oriented x 3 (oriented to person and place) Medical Decision Making ED Course and Treatment: 07/06/17 20:23 Impression: 76 year old male who presents to the emergency department complaining of AMS today as per patient's . Differential Diagnosis included but are not limited to: AMS Plan: -- EKG -- Chest X-ray -- VBG and Blood Culture -- Urinalysis and Urine Culture -- Labs -- Tylenol and IV fluids -- Reassess and disposition Prior Visits: Notes and results from previous visits were reviewed. Patient was last seen in the emergency department on 06/13/17 for hypoglycemia. Patient was admitted to hospitalist care for further evaluation. Progress Notes: Reviewed EKG, NSR at [address] bpm. PAC. Non-specific ST/T wave changes. 07/06/17 21:53 CXR reviewed, shows no acute processes. 07/06/17 22:[address] Trinidad, who is aware and agrees with plan. Accepts pt into his service. Patient will be admitted to [facility] for SIRS and AMS. 07/07/17 00:25 CT Head shows: Brain: Moderate atrophy. No intracranial hemorrhage. No mass. Minimal decreased attenuation within periventricular white matter. No definite edema. Ventricles: No hydrocephalus. Bones/joints: No acute fracture. Soft tissues: Unremarkable. Vasculature: Atherosclerotic disease of intracranial arteries. Sinuses: Frontal retention cyst. Scattered minimal mucosal thickening. Mastoid air cells: No mastoid effusion. Orbits: Unremarkable as visualized. IMPRESSION: 1. Nonspecific white matter changes. Acute infarction may be CT occult within first 24 hours. If a focal deficit persists, consider followup CT or MRI for further evaluation. 2. Incidental/non-acute findings are described above - Lab Interpretations Microbiology Results: Microbiology Results 07/06/17 19:50 Blood Blood Culture - Preliminary NO GROWTH AFTER 24 HOURS Lab Results: 07/06/17 19:50 07/06/17 19:50 Lab Results 07/07/17 07:30: Influenza Typ A,B (EIA) Negative for flu a/b 07/06/17 22:15: Urine Color Yellow, Urine Appearance Clear, Urine pH 6.0, Ur Specific [place] 1.015, Urine Protein Negative, Urine Glucose (UA) Negative, Urine Ketones Negative, Urine Blood Negative, Urine Nitrate Negative, Urine Bilirubin Negative, Urine Urobilinogen 0.2, Ur Leukocyte Esterase Negative 07/06/17 19:50: Sodium 137, Chloride 99, Potassium 4.5, Carbon Dioxide 29, Anion Gap 14, BUN 21, Creatinine 1.3, Est GFR ( Amer) > 60, Est GFR (Non- Af Amer) 54, Random Glucose 79, Calcium 10.0, Phosphorus 3.9, Magnesium 2.1, Total Bilirubin 0.2, AST 31, ALT 29, Alkaline Phosphatase 60, Total Protein 7.3 , Albumin 3.9, Globulin 3.3, Albumin/Globulin Ratio 1.2 07/06/17 19:50: pO2 221 H, VBG pH 7.43, VBG pCO2 45.0, VBG HCO3 29.9 H, VBG Total CO2 31.3 H, VBG O2 Sat (Calc) 99.6 H, VBG Base Excess 4.8 H, VBG Potassium 4.7, Sodium 135.0, Chloride 103.0, Glucose 84, Lactate 0.7, FiO2 21.0 , Venous Blood Potassium 4.7 07/06/17 19:50: PT 13.1 H, INR 1.15 H, APTT 29.8 07/06/17 19:50: WBC 7.9, RBC 3.19 L, Hgb 10.2 L, Hct 30.4 L, MCV 95.3, MCH 32.0 , MCHC 33.6, RDW 12.2, Plt Count 200, MPV 9.6, Gran % 69.8 H, Lymph % (Auto) 19.7 L, [place] % (Auto) 9.1 H, Eos % (Auto) 1.3 L, Baso % (Auto) 0.1, Gran # 5.51 , Lymph # (Auto) 1.6, [place] # (Auto) 0.7 H, Eos # (Auto) 0.1, Baso # (Auto) 0.01 07/06/17 19:35: POC Glucose (mg/dL) 88 I have reviewed the lab results: Yes - RAD Interpretation Radiology Orders: 07/06/17 19:39 CHEST PORTABLE [RAD] Stat 07/06/17 20:46 HEAD W/O CONTRAST [CT] Stat 07/07/17 15:02 BRAIN WITHOUT CONTRAST [MRI] Urgent Hr Administrative Assistant: ED Physician, Radiologist - EKG Interpretation Interpreted by ED Physician: Yes Type: 12 lead EKG - Medication Orders Current Medication Orders: Discontinued Medications Acetaminophen (Tylenol 325mg Tab) 975 mg PO STAT STA Stop: 07/06/17 20:06 Last Admin: 07/06/17 20:06 Dose: Acetaminophen (Tylenol 325mg Tab) 650 mg PO Q4H PRN PRN Reason: Fever >100.5 F Stop: 07/07/17 12:00 Alprazolam (Xanax) 0.5 mg PO STAT STA PRN Reason: Protocol Stop: 07/07/17 11:01 Last Admin: 07/07/17 11:09 Dose: 0.5 mg Sodium Chloride (Sodium Chloride 0.9%) 1,000 mls @ 100 mls/hr IV .Q10H DEBORA Last Admin: 07/07/17 12:30 Dose: 100 mls/hr eMAR Start Stop Document 07/07/17 12:30 SZA (Rec: 07/07/17 18:26 [facility] [id number]) Intravenous Solution Start Date 07/07/17 Start Time 12:30 End Date 07/07/17 End time 14:40 Total Infusion Time 130 Ceftriaxone Sodium (Rocephin 1 Gram Ivpb) 1 gm in 100 mls @ 200 mls/hr IV ONCE STA PRN Reason: Protocol Stop: 07/06/17 22:26 Last Admin: 07/06/17 23:15 Dose: 200 mls/hr eMAR Start Stop Document 07/06/17 23:15 RD (Rec: 07/06/17 23:18 RD [id number]) Intravenous Solution Start Date 07/06/17 Start Time 23:18 End Date 07/06/17 End time 23:48 Total Infusion Time 30 Oxycodone HCl (Oxycodone Immediate Release Tab) 30 mg PO STAT STA Stop: 07/07/17 11:01 Last Admin: 07/07/17 11:09 Dose: 30 mg JAYSHREE Pain Assessment Document 07/07/17 11:09 Naz (Rec: 07/07/17 11:09 [facility] [id number]) Pain Reassessment Is this a pain reassessment? No Sleep Is patient sleeping during reassessment? No Presence of Pain Presence of Pain Yes Re-Assess: JAYSHREE Pain Assessment Document 07/07/17 12:09 SZA (Rec: 07/07/17 18:27 [facility] [id number]) Pain Reassessment Is this a pain reassessment? Yes Sleep Is patient sleeping during reassessment? No Presence of Pain Presence of Pain Yes Pain Scale Used Pain Scale Used Numeric Description Description Intermittent Intensity of Pain at present 3 Oxycodone HCl (Oxycodone Immediate Release Tab) 30 mg PO Q6H PRN PRN Reason: Pain, severe (8-10) - Scribe Statement The provider has reviewed the documentation as recorded by the Scribe Latonya Len Provider Scribe Attestation: All medical record entries made by the Sunshineibmellisa were at my direction and personally dictated by me. I have reviewed the chart and agree that the record accurately reflects my personal performance of the history, physical exam, medical decision making, and the department course for this patient. I have also personally directed, reviewed, and agree with the discharge instructions and disposition. Disposition/Present on Arrival - Present on Arrival Any Indicators Present on Arrival: No History of DVT/PE: No History of Uncontrolled Diabetes: No Urinary Catheter: No History of Decub. Ulcer: No History Surgical Site Infection Following: None - Disposition Have Diagnosis and Disposition been Completed?: Yes Diagnosis: Altered mental status, SIRS (systemic inflammatory response syndrome) Disposition: HOSPITALIZED Disposition Time: 22:15 Condition: GOOD
[2017-07-06 20:23] LABS: BASO # 0.01 K/mm3 (0.0-2.0); BASO % 0.1 % (0.0-3.0); EOS # 0.1 (0.0-0.7); EOS % 1.3 % (1.5-5.0); GRAN # 5.51 (1.4-6.5); GRAN % 69.8 % (50.0-68.0); HEMOGLOBIN 10.2 g/dL (14.0-18.0); LYMPH # 1.6 (1.2-3.4); LYMPH % 19.7 % (22.0-35.0); MEAN CELL VOLUME 95.3 fl (80.0-105.0); MEAN CORPUSCULAR HGB CONC 33.6 g/dl (31.0-37.0); MEAN PLATELET VOLUME 9.6 fl (7.0-11.0); MONO # 0.7 (0.1-0.6); MONO % 9.1 % (1.0-6.0); RBC 3.19 10^6/uL (3.5-6.1); RED CELL DISTRIBUTION WIDTH 12.2 % (11.5-14.5); WHITE BLOOD COUNT 7.9 10^3/ul (4.5-11.0)
[2017-07-06 20:24] LABS: VENOUS BLOOD GAS BASE EXCESS 4.8 mmol/L (0.0-2.0); VENOUS BLOOD GAS PO2 221 mm/Hg (30-55); VENOUS BLOOD PH 7.43 (7.32-7.43)
[2017-07-06 20:29] LABS: INR 1.15 (0.93-1.08); PARTIAL THROMBOPLASTIN TIME 29.8 Seconds (25.1-36.5); PROTHROMBIN TIME 13.1 SECONDS (9.4-12.5)
[2017-07-06 20:32] LABS: ALB/GLOB RATIO 1.2 (1.1-1.8); ALBUMIN 3.9 g/dL (3.0-4.8); ALT/SGPT 29 U/L (7-56); AST/SGOT 31 U/L (17-59); BLOOD UREA NITROGEN 21 mg/dL (7-21); GFR AFRICAN-AMERICAN > 60; GFR NON-AFRICAN AMERICAN 54; MAGNESIUM 2.1 mg/dL (1.7-2.2)
[2017-07-06] MEDS ORDERED: cefTRIAXone 1 gm 1 GM/100 ML BAG IV STA (21:57)
[2017-07-06 22:28] LABS: URINE BILIRUBIN NEGATIVE (NEGATIVE); URINE BLOOD NEGATIVE (NEGATIVE); URINE GLUCOSE (UA) NEGATIVE (NEGATIVE); URINE LEUKOCYTE ESTERASE NEGATIVE Leu/uL (NEGATIVE); URINE NITRATE NEGATIVE (NEGATIVE); URINE PROTEIN NEGATIVE mg/dL (<30 mg/dL); URINE UROBILINOGEN 0.2 E.U./dL (<1 E.U./dL)
[2017-07-06 22:31] LABS: URINE APPEARANCE CLEAR (CLEAR)
[2017-07-06 22:59] LABS: URINE COLOR YELLOW (YELLOW)
--- NOTE | 2017-07-07 00:23 | CT ---
EXAM: CT Head Without Intravenous Contrast CLINICAL HISTORY: 76 years old, male; Signs and symptoms; Altered mental status/memory loss; Additional info: AMS /fever TECHNIQUE: Axial computed tomography images of the head/brain without intravenous contrast. All CT scans at this facility use one or more dose reduction techniques, viz.: automated exposure control; ma/kV adjustment per patient size (including targeted exams where dose is matched to indication; i.e. head); or iterative reconstruction technique. Coronal and sagittal reformatted images were created and reviewed. COMPARISON: CT - HEAD W/O CONTRAST 2017-06-14 00:43 FINDINGS: Brain: Moderate atrophy. No intracranial hemorrhage. No mass. Minimal decreased attenuation within periventricular white matter. No definite edema. Ventricles: No hydrocephalus. Bones/joints: No acute fracture. Soft tissues: Unremarkable. Vasculature: Atherosclerotic disease of intracranial arteries. Sinuses: Frontal retention cyst. Scattered minimal mucosal thickening. Mastoid air cells: No mastoid effusion. Orbits: Unremarkable as visualized. IMPRESSION: 1. Nonspecific white matter changes. Acute infarction may be CT occult within first 24 hours. If a focal deficit persists, consider followup CT or MRI for further evaluation. 2. Incidental/non-acute findings are described above.
--- NOTE | 2017-07-07 08:30 | RAD ---
HISTORY: Sepsis Patient COMPARISON: Portable chest 11/09/2015. FINDINGS: LUNGS: No active pulmonary disease. PLEURA: No significant pleural effusion identified, no pneumothorax apparent. CARDIOVASCULAR: Normal. OSSEOUS STRUCTURES: No significant abnormalities. VISUALIZED UPPER ABDOMEN: Normal. OTHER FINDINGS: Sternotomy wires again appreciated. IMPRESSION: No interval acute cardiopulmonary disease appreciated.
--- NOTE | 2017-07-07 09:43 | CARD ---
APPROVED REPORT EKG Measurement Heart [id number] <Conclusion> Sinus rhythm with premature atrial complexes Nonspecific T wave abnormality RVCD
[2017-07-07] MEDS ORDERED: oxyCODONE 30 mg Immediate Release Tab PO STA (11:00)
[2017-07-07] MEDS: Sodium Chloride 0.9% 1,000 ML IV SCH (12:30)
[2017-07-07] MEDS ORDERED: oxyCODONE 30 mg Immediate Release Tab PO PRN (14:21)
--- NOTE | 2017-07-07 15:01 | CP.PCM.PN ---
Subjective - Date & Time of Evaluation Date of Evaluation: 07/07/17 Time of Evaluation: 14:57 - Subjective Subjective: HOUSE DOC NOTE House Doc was paged by nursing staff as patient wanted to sign out AMA. Chart was reviewed by me and I went to see the patient immediately. Sister was at bedside. I attempted to contact patient's next of kin () on both telephone numbers which went unanswered and was unable to leave a voicemail. Patient was admitted for AMS under Dr. Trinidad's service. On examination patient was AO x 3 to self, place, and time and was adamant on signing him self out and refusing medical treatment. Risks of leaving against medical advice were discussed in detail with patient and sister. Patient continued to refuse treatment and stated he understood the risks of leaving. AMA paperwork was signed by patient and nursing at bedside witnessed. Dr. Taylor was contacted and voicemail was left regarding patient disposition. Aide Donnelly PGY2 Objective - Vital Signs/Intake and Output Vital Signs (last 24 hours): Temp Pulse Resp BP Pulse Ox 98.9 F 92 H 18 156/80 H 98 07/07/17 12:15 07/07/17 12:15 07/07/17 12:15 07/07/17 12:15 07/07/17 12:15 - Medications Medications: Current Medications Sodium Chloride (Sodium Chloride 0.9%) 1,000 mls @ 100 mls/hr IV .Q10H DEBORA Last Admin: 07/06/17 20:04 Dose: 100 mls/hr Oxycodone HCl (Oxycodone Immediate Release Tab) 30 mg PO Q6H PRN PRN Reason: Pain, severe (8-10) - Labs Labs: PT 13.1 SECONDS (9.4-12.5) H 07/06/17 19:50 INR 1.15 (0.93-1.08) H 07/06/17 19:50 APTT 29.8 Seconds (25.1-36.5) 07/06/17 19:50
[2017-07-07 15:08] VITALS: BP 161/89; PULSE 90; RESP 16; TEMP 99.2; O2SAT 99
--- NOTE | 2017-07-08 07:24 | CON ---
DATE: 07/07/2017 CHIEF COMPLAINT: Change in mental status and fever x1 day duration. HISTORY OF PRESENT ILLNESS: This is a 76-year-old male with a history of diabetes, renal insufficiency, history of GI bleed in 2013, history of pneumonia, admitted with a fever, periods of confusion. He has been complaining of dizziness although this morning when I saw him, he knew who he was, he knew where he was, and he knew what year it was and he was able to answer questions. He has been having cough and generalized aches and pains and fevers. No chills. No abdominal pain, diarrhea or constipation. No dysuria. REVIEW OF SYSTEMS: Reveals no headaches or blurred vision. No neck pain. No back pain or rash. PAST MEDICAL HISTORY: Significant for diabetes mellitus, kidney disease, pneumonia, GI bleed. PAST SURGICAL HISTORY: Significant for cardiac catheterization. ALLERGIES: PATIENT IS ALLERGIC TO . MEDICATIONS AT HOME: Include the patient to be on Lasix, Colace, metformin, metoprolol. PHYSICAL EXAMINATION GENERAL: Patient is in bed, feeling weak. VITAL SIGNS: Temperature of 99, T-max is 101.2, heart rate is 92, blood pressure is 140/80, respiratory rate of 20. HEENT: Examination is unremarkable. NECK: Supple. LUNGS: Have decreased breath sounds. HEART: Normal S1, S2. ABDOMEN: Soft. LABORATORY DATA: Reveals WBC 7.9, hemoglobin of 10, platelets of 200,000. Chemistry reveals a BUN of 21, creatinine of 1.3. Urinalysis is noted to be unremarkable. Influenza serology is negative. Chest x-ray is negative. ASSESSMENT AND PLAN: This is a 76-year-old male with diabetes mellitus and kidney disease, had recent hospitalization with pneumonia and gastrointestinal bleed, now presented with fever, change in mental status, concerned about the viral illness although gastroenterology pathology has also been in consideration with a negative chest x-ray and EKG with QTc of 450. 1. Systemic inflammatory response syndrome. We will start the patient on vancomycin, , meropenem, Tamiflu and Levaquin. Pending bustamante cultures. We recommended CT of the abdomen and pelvis and CT of the chest and influenza is negative, may still be a possibility in this patient. We will follow closely with you. Dwayne Cisneros MD [facility] # [id number]
== END 2017-07-07 14:45 | disposition left against medical advice (07) ==
LOC: ED 19:04 → ERH 22:16 → UNDOADMIN 22:16 → ED 07-07 14:45
DX: R41.82 Altered mental status, unspecified (principal); R65.10 Systemic inflammatory response syndrome (SIRS) of non-infectious origin without acute organ dysfunction; I25.10 Atherosclerotic heart disease of native coronary artery without angina pectoris; E11.22 Type 2 diabetes mellitus with diabetic chronic kidney disease; N18.9 Chronic kidney disease, unspecified; Z87.01 Personal history of pneumonia (recurrent); Z87.891 Personal history of nicotine dependence; Z95.1 Presence of aortocoronary bypass graft
CPT/HCPCS: 70450; 71045; 80053; 81003; 82803; 82948; 83735; 84100; 85025; 85610; 85730; 87040; 87086; 87804; 93005; 96360; 96361; 99285; J0696; J7040

== ENCOUNTER 2017-10-21 09:17 | Inpatient (IN) | payer MEDICARE, OTHER ==
[2017-10-21] MEDS ORDERED: Dextrose 50% SYRINGE Inj (50 ml) ONE (09:24)
--- NOTE | 2017-10-21 09:24 | ED PDOC ---
Arrival/HPI - General Time Seen by Provider: 10/21/17 09:22 Historian: Spouse - History of Present Illness Narrative History of Present Illness (Text): 10/21/17 09:24 Edna Lobo is a 76 year old male brought in by EMS, whose past medical history includes type II diabetes, CAD, chronic kidney disease, and pneumonia, who presents to the emergency department by BLS for AMS. Patient was found with AMS at his home. Glucose found to be 28 by EMS. Patient was give D50 in route to ED. Patient was given a second D50 at ED arrival. Patient is alert. Patient stated he feel down 3 days ago, after feeling weak. Patient presents with multiple abrasion, forehead ecchymosis, right hip ecchymosis. Past Medical History - Provider Review Nursing Documentation Reviewed: Yes - Infectious Disease Hx of Infectious Diseases: None - Tetanus Immunization Tetanus Immunization: Unknown - Cardiac Hx Pacemaker: No Other/Comment: CAD, s/p CABG - Pulmonary Hx Respiratory Disorders: Yes Hx Pneumonia: Yes - Neurological Hx Paralysis: No Other/Comment: neuropathy BL LE - HEENT Other/Comment: GLASSES - Renal Hx Renal Disorder: No - Endocrine/Metabolic Hx Endocrine Disorders: Yes Hx Diabetes Mellitus Type 2: Yes - Hematological/Oncological Hx Blood Transfusions: Yes Hx Blood Transfusion Reaction: No - Integumentary Hx Dermatological Disorder: No - Musculoskeletal/Rheumatological Hx Falls: Yes - Gastrointestinal Hx Gastrointestinal Disorders: Yes (GI BLEED 14) - Genitourinary/Gynecological Hx Genitourinary Disorders: No - Psychiatric Hx Emotional Abuse: No Hx Physical Abuse: No Hx Substance Use: No - Surgical History Hx Cardiac Catheterization: Yes - Anesthesia Hx Anesthesia Reactions: No Hx Malignant Hyperthermia: No - Suicidal Assessment Feels Threatened In Home Enviroment: No Family/Social History - Physician Review Nursing Documentation Reviewed: Yes Family/Social History: Other (noncontributory) Smoking Status: Former Smoker Hx Alcohol Use: No Hx Substance Use: No Hx Substance Use Treatment: No Allergies/Home Meds Allergies/Adverse Reactions: Allergies prasugrel HCl [From Effient] Adverse Reaction (Severe, Verified 11/09/15 19:06) ANAPHYLAXIS Pt states he began to bleed out when he took this medication and no longer takes it. Home Medications: Home Meds Medication Instructions Recorded Confirmed Alprazolam [Xanax] 0.5 mg PO BID 07/07/17 07/07/17 Cilostazol [Pletal] 50 mg PO BID 07/07/17 07/07/17 Clopidogrel [Plavix] 75 mg PO DAILY 07/07/17 07/07/17 Cyclobenzaprine [Cyclobenzaprine 10 mg PO BID 07/07/17 07/07/17 HCl] Docusate [Colace] 100 mg PO DAILY 07/07/17 07/07/17 Furosemide [Lasix] 40 mg PO QOTHERDAY 07/07/17 07/07/17 Gabapentin [Neurontin] 300 mg PO HS 07/07/17 07/07/17 Glimepiride [Amaryl] 2 mg PO DAILY 07/07/17 07/07/17 Lactulose [Generlac] 10 gm PO BID 07/07/17 07/07/17 Lisinopril [Zestril] 5 mg PO DAILY 07/07/17 07/07/17 Metoprolol Tartrate [Lopressor] 50 mg PO BID 07/07/17 07/07/17 Naloxegol Oxalate [Movantik] 25 mg PO DAILY 07/07/17 07/07/17 Ranolazine [Ranexa] 500 mg PO BID 07/07/17 07/07/17 metFORMIN [glucOPHAGE] 850 mg PO BID 07/07/17 07/07/17 oxyCODONE [oxyCODONE Immediate 30 mg PO QID 07/07/17 07/07/17 Release Tab] Review of Systems - Review of Systems Systems not reviewed;Unavailable: Altered Mental Status Physical Exam Vital Signs Temp Pulse Resp BP Pulse Ox 10/21/17 12:25 109 H 17 138/74 100 10/21/17 09:35 97.8 F 10/21/17 09:18 106 H 18 123/64 100 Temperature: Afebrile Blood Pressure: Normal Pulse: Regular Respiratory Rate: Normal Appearance: Positive for: Comfortable, Ill-Appearing, Unkept Pain Distress: None Finger Stick Blood Glucose: 75 - Systems Exam Head: Present: Normocephalic, Ecchymosis (forhead echymosis), Other (no raccoon sign. No stover sign) Pupils: Present: PERRL, Other (no hyphema) Extroacular Muscles: Present: EOMI. No: Entrapment Conjunctiva: Present: Normal Ears: Present: Normal, NORMAL TM, Normal Canal. No: Erythema, TM Bulging, Fluid , Other Mouth: Present: Moist Mucous Membranes, Normal Lips, Normal Tounge, Normal Teeth. No: Drooling Pharnyx: Present: Normal. No: ERYTHEMA, EXUDATE, TONSILS ENLARGED, Peritonsilar Swelling, Uvular Deviation Nose (External): Present: Atraumatic Nose (Internal): Present: Normal Inspection Neck: Present: Normal Range of Motion, Trachea Midline. No: Meningeal Signs, MIDLINE TENDERNESS, Paraspinal Tenderness, Lymphadenopathy Respiratory/Chest: Present: Clear to Auscultation, Good Air Exchange. No: Respiratory Distress, Accessory Muscle Use, Wheezes, Retracting, Rhonchi Cardiovascular: Present: Regular Rate and Rhythm, Normal S1, S2. No: Murmurs Abdomen: No: Tenderness, Distention, Peritoneal Signs, Rebound, Guarding Back: Present: Normal Inspection. No: CVA Tenderness, Midline Tenderness, Paraspinal Tenderness Upper Extremity: Present: NORMAL PULSES, Neurovascularly Intact, Capillary Refill < 2s, Other (b/l arms abrasion with mils surroung erythema). No: Cyanosis, Edema Lower Extremity: Present: NORMAL PULSES, Normal ROM, Neurovascularly Intact, Capillary Refill < 2 s, Other ((+) b/l knees, right lateral ankle abrasion, left 2nd toe abrasion with surrounding erythema. (+) right foot wound has dischare at the level of right 1st MPJ area). No: Edema, CALF TENDERNESS, Deformity, Temperature Abnormalties Neurological: Present: GCS=15, CN II-XII Intact, Speech Normal, Motor Func Grossly Intact, Normal Sensory Function, Normal Cerebellar Funct Skin: Present: Warm, Dry, Normal Color. No: Rashes Psychiatric: Present: Alert Medical Decision Making ED Course and Treatment: 10/21/17 11:[address] Trinidad, MICHAEL regarding patient history, physical exam, pending labs, imaging. He said he agrees with admission. 10/21/17 13:23 critical care time: 35min, excluding procedure time, including initial eval/ diagnosis, diagnostic interpretation, re-eval, consultations, final disposition 10/21/17 13:47 Dr. Trinidad recommended D5 NS @ 75 ml/hr. Dr. Trinidad reviewed labs and imaging. Re-evaluation Time: 13:23 Reassessment Condition: Re-examined, Improving,but remains with symptoms - Lab Interpretations Lab Results: 10/21/17 10:06 10/21/17 10:06 Lab Results 10/21/17 12:29: POC Glucose (mg/dL) 108 10/21/17 10:36: POC Glucose (mg/dL) 166 H 10/21/17 10:06: Sodium 136, Chloride 104, Potassium 6.7 H* D, Carbon Dioxide 19 L, Anion Gap 20, BUN 75 H, Creatinine 2.4 H, Est GFR ( Amer) 32, Est GFR (Non-Af Amer) 27, Random Glucose 162 H, Calcium 10.3, Phosphorus 2.8, Magnesium 2.1, Total Bilirubin 0.8, AST 68 H D, ALT 31, Alkaline Phosphatase 67, Lactate Dehydrogenase 1296 H, Total Creatine Kinase 1582 H, CK-MB (CK-2) 9.0 H, CK-MB ( CK-2) % 0.6 L, Troponin I 0.05 D, NT-Pro-B Natriuret Pep 1880 H, Total Protein 7.9, Albumin 4.3, Globulin 3.6, Albumin/Globulin Ratio 1.2 10/21/17 10:06: pO2 34, VBG pH 7.22 L, VBG pCO2 46.0, VBG HCO3 18.8 L, VBG Total CO2 20.2 L, VBG O2 Sat (Calc) 70.5 H, VBG Base Excess -8.8 L, VBG Potassium 6.9 H*, Sodium 131.0 L, Chloride 106.0, Glucose 175 H, Lactate 1.8, FiO2 21.0, Venous Blood Potassium 6.9 H* 10/21/17 10:06: PT 11.6, INR 1.01, APTT 26.4 10/21/17 10:06: WBC 7.7, RBC 3.23 L, Hgb 9.7 L, Hct 28.8 L, MCV 89.2 D, MCH 30.0, MCHC 33.7, RDW 13.9, Plt Count 169, MPV 9.7, Gran % 81.7 H, Lymph % (Auto ) 9.3 L, Ceiba % (Auto) 8.8 H, Eos % (Auto) 0.1 L, Baso % (Auto) 0.1, Gran # 6.29 , Lymph # (Auto) 0.7 L, Ceiba # (Auto) 0.7 H, Eos # (Auto) 0.0, Baso # (Auto) 0.01, ESR 65 H 10/21/17 09:21: POC Glucose (mg/dL) 75 I have reviewed the lab results: Yes Interpretation: Abnormal lab values - RAD Interpretation Narrative RAD Interpretations (Text): 10/21/17 12:24 IMPRESSION: Unremarkable radiographs of the hips and pelvis. 10/21/17 12:24 CXR: IMPRESSION: No active disease. 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 No acute fracture. No osseous erosion or periosteal reaction appreciated. Soft tissue swelling noted at the site of amputation. Orthopedic hardware seen along distal fibula/ lateral malleolus. JOINTS: Normal. SOFT TISSUES: As above OTHER FINDINGS: None. IMPRESSION: Can't be amputation mid 1st metatarsal and 2nd middle phalanx. 10/21/17 12:26 FINDINGS: HEMORRHAGE: No intracranial hemorrhage. BRAIN: No mass effect or edema. Mild diffuse age-appropriate cerebral atrophy. VENTRICLES: Unremarkable. No hydrocephalus. CALVARIUM: Unremarkable. PARANASAL SINUSES: Unremarkable as visualized. No significant inflammatory changes. MASTOID AIR CELLS: Unremarkable as visualized. No inflammatory changes. OTHER FINDINGS: None. IMPRESSION: No intracranial hemorrhage. Age related atrophy. Otherwise unremarkable examination. 10/21/17 13:13 PROCEDURE: CT Chest, Abdomen and Pelvis without intravenous contrast CT CHEST WITHOUT CONTRAST: LUNGS: Clear. No nodule, mass or consolidation. MEDIASTINUM: CABG. Mild left atrial enlargement. No pericardial effusion. No aneurysmal dilatation of the thoracic aorta. Normal caliber of main pulmonary artery. . LYMPH NODES: Unremarkable. PLEURA: Unremarkable. No pneumothorax. No pleural fluid. BONES: Old healed fracture right anterior 4th rib. OTHER FINDINGS: None. CT ABDOMEN AND PELVIS: LIVER: Unremarkable. No gross lesion or ductal dilatation. GALLBLADDER AND BILE DUCTS: Cholelithiasis. No mural thickening pericholecystic fluid. PANCREAS: Unremarkable. No gross lesion or ductal dilatation. SPLEEN: Unremarkable. ADRENALS: Bilateral adrenal hypertrophy. 2.2 cm left adrenal mass measuring -8 Hounsfield units consistent with adenoma. KIDNEYS AND URETERS: No mass, calculus or hydronephrosis. Bilateral vascular calcification noted. There is some atrophy of the right kidney. It measures approximately 7.7 cm whereas the left kidney measures 12.2 cm. Significance uncertain. This could be vascular in origin. VASCULATURE: Unremarkable. No aortic aneurysm. BOWEL: Unremarkable. No obstruction. No gross mural thickening. APPENDIX: Not identified. No secondary findings. PERITONEUM: Unremarkable. No free fluid. No free air. LYMPH NODES: Unremarkable. No enlarged lymph nodes. BLADDER: Unremarkable. REPRODUCTIVE: Normal prostate BONES: No acute fracture. OTHER FINDINGS: None. IMPRESSION: No acute abnormality. No hemothorax or pneumothorax. No evidence of hemo peritoneum mid. No evidence of visceral injury. Mild atrophy of right kidney, possibly vascular in origin. Cholelithiasis without evidence cholecystitis. Status post CABG. Radiology Orders: 10/21/17 09:49 CHEST PORTABLE [RAD] Stat 10/21/17 10:09 HEAD W/O CONTRAST [CT] Stat 10/21/17 10:12 CHEST,ABDOMEN, PELVIS W/O CONT [CT] Stat 10/21/17 10:14 FOOT LEFT 3 VIEWS ROUTINE [RAD] Stat 10/21/17 10:15 Hip Bilateral [HIP MIN 3V W/ PELVIS FREDDY] [RAD] Stat 10/21/17 10:49 FOOT RIGHT 3 VIEWS ROUTINE [RAD] Stat - EKG Interpretation Interpreted by ED Physician: Yes (Sinus Tachycardia @ [address] changes) Type: 12 lead EKG Comparison: Similar to previous EKG - Medication Orders Current Medication Orders: Discontinued Medications Albuterol Sulfate (Albuterol 0.083% Inhal Melinda (2.5 Mg/3 Ml) Ud) 2.5 mg INH STAT STA Stop: 10/21/17 11:37 Last Admin: 10/21/17 12:25 Dose: 2.5 mg Dextrose (Dextrose 50% Inj) 50 ml IVP STAT STA Stop: 10/21/17 11:37 Last Admin: 10/21/17 12:26 Dose: 50 ml IVP Administration Document 10/21/17 12:26 SF (Rec: 10/21/17 12:26 SF [id number]) Charges for Administration # of IVP Administrations 1 Dextrose (Dextrose 50% Inj) 50 ml IVP STAT STA Stop: 10/21/17 09:36 Vancomycin HCl (Vancomycin 1gm) 1 gm in 250 mls @ 167 mls/hr IVPB STAT STA PRN Reason: Protocol Stop: 10/21/17 11:45 Last Admin: 10/21/17 12:22 Dose: 167 mls/hr eMAR Start Stop Document 10/21/17 12:22 SF (Rec: 10/21/17 12:22 SF [id number]) Intravenous Solution Start Date 10/21/17 Start Time 12:22 End Date 10/21/17 End time 13:55 Total Infusion Time 93 Piperacillin Sod/Tazobactam Sod (Zosyn 4.5 Gm In Ns 100ml) 4.5 gm in 100 mls @ 200 mls/hr IVPB STAT STA PRN Reason: Protocol Stop: 10/21/17 10:45 Last Admin: 10/21/17 11:03 Dose: 200 mls/hr eMAR Start Stop Document 10/21/17 11:03 SF (Rec: 10/21/17 11:03 SF [id number]) Intravenous Solution Start Date 10/21/17 Start Time 11:03 End Date 10/21/17 End time 11:33 Total Infusion Time 30 Calcium Gluconate 2,000 mg/ (Sodium Chloride) 120 mls @ 110 mls/hr IVPB ONCE ONE Stop: 10/21/17 12:50 Last Admin: 10/21/17 12:25 Dose: 110 mls/hr eMAR Start Stop Document 10/21/17 12:25 SF (Rec: 10/21/17 12:25 SF [id number]) Intravenous Solution Start Date 10/21/17 Start Time 12:25 End Date 10/21/17 End time 13:26 Total Infusion Time 61 Sodium Chloride (Sodium Chloride 0.9%) 500 mls @ 999 mls/hr IV .Q31M STA Stop: 10/21/17 13:47 Insulin Human Regular (Humulin R) 10 units IV ONCE ONE Stop: 10/21/17 11:36 Last Admin: 10/21/17 12:25 Dose: 10 units eMAR Start Stop Document 10/21/17 12:25 SF (Rec: 10/21/17 12:26 SF [id number]) Intravenous Solution Start Date 10/21/17 Start Time 12:26 MAR Blood Glucose Document 10/21/17 12:25 SF (Rec: 10/21/17 12:26 SF [id number]) Blood Glucose Finger Stick Blood Glucose (70-120) 108 Sodium Polystyrene Sulfonate (Kayexalate Susp) 15 gm MA STAT STA Stop: 10/21/17 11:35 Last Admin: 10/21/17 12:25 Dose: 15 gm Tetanus/Reduced Diphtheria/Acell Pertussis (Boostrix Vaccine Inj) 0.5 ml IM .ONCE ONE Stop: 10/21/17 10:17 Last Admin: 10/21/17 11:03 Dose: 0.5 ml Immunization Registry Document 10/21/17 11:03 SF (Rec: 10/21/17 11:03 [id number]) Immunization Registry Consent Date 06/27/17 Disposition/Present on Arrival - Present on Arrival Any Indicators Present on Arrival: No History of DVT/PE: No History of Uncontrolled Diabetes: No Urinary Catheter: No History Surgical Site Infection Following: None - Disposition Have Diagnosis and Disposition been Completed?: Yes Diagnosis: Altered mental status, Cellulitis, Rhabdomyolysis, Hyperkalemia, Hypoglycemia Disposition: HOSPITALIZED Disposition Time: 13:22 Patient Plan: Admission Patient Problems: Current Active Problems Problem Status Onset Altered mental status Acute Cellulitis Acute Rhabdomyolysis Acute Hyperkalemia Acute Condition: STABLE
[2017-10-21 09:30] VITALS: BMI 23.6
[2017-10-21] MEDS ORDERED: Dextrose 50% SYRINGE Inj (50 ml) IVP STA ×3 (09:35→16:17)
[2017-10-21] MEDS ORDERED: TDAP Vaccine 0.5 mL Syr IM ONE (10:16)
[2017-10-21] MEDS ORDERED: Piperacill/Tazo 4.5gm in NS 4.5 GM/100 ML BAG IVPB STA (10:16)
[2017-10-21] MEDS ORDERED: Vancomycin 1gm in NS 250ml 1 GM/250 ML BAG IVPB STA (10:16)
[2017-10-21 10:58] LABS: VENOUS BLOOD GAS BASE EXCESS -8.8 mmol/L (0.0-2.0); VENOUS BLOOD GAS PO2 34 mm/Hg (30-55); VENOUS BLOOD PH 7.22 (7.32-7.43)
[2017-10-21 11:02] LABS: BASO # 0.01 K/mm3 (0.0-2.0); BASO % 0.1 % (0.0-3.0); EOS % 0.1 % (1.5-5.0); GRAN # 6.29 (1.4-6.5); GRAN % 81.7 % (50.0-68.0); HEMOGLOBIN 9.7 g/dL (14.0-18.0); LYMPH # 0.7 (1.2-3.4); LYMPH % 9.3 % (22.0-35.0); MEAN CELL VOLUME 89.2 fl (80.0-105.0); MEAN CORPUSCULAR HGB CONC 33.7 g/dl (31.0-37.0); MEAN PLATELET VOLUME 9.7 fl (7.0-11.0); MONO # 0.7 (0.1-0.6); MONO % 8.8 % (1.0-6.0); RBC 3.23 10^6/uL (3.5-6.1); RED CELL DISTRIBUTION WIDTH 13.9 % (11.5-14.5); WHITE BLOOD COUNT 7.7 10^3/ul (4.5-11.0)
[2017-10-21 11:08] LABS: PROTHROMBIN TIME 11.6 SECONDS (9.4-12.5)
[2017-10-21 11:09] LABS: INR 1.01 (0.93-1.08); PARTIAL THROMBOPLASTIN TIME 26.4 Seconds (25.1-36.5)
[2017-10-21 11:19] LABS: TROPONIN I 0.05 ng/mL
[2017-10-21 11:26] LABS: ALB/GLOB RATIO 1.2 (1.1-1.8); ALBUMIN 4.3 g/dL (3.0-4.8); CALCIUM 10.3 mg/dL (8.4-10.5)
[2017-10-21] MEDS ORDERED: Sod Polystyrene Sulf 15 gm/60 ml Susp PR STA (11:34)
[2017-10-21] MEDS ORDERED: Insulin Regular 1 UNITS/0.01 ML ML IV ONE (11:35)
[2017-10-21] MEDS ORDERED: Albuterol 0.083% Inhal Sol (2.5 mg/3 mL) UD INH STA (11:36)
[2017-10-21 11:40] LABS: CK MB% 0.6 % (2.5-3.0)
--- NOTE | 2017-10-21 12:17 | RAD ---
PROCEDURE: Right Foot Radiographs. HISTORY: pain r/o osteo COMPARISON: None. 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 No acute fracture. No osseous erosion or periosteal reaction appreciated. Soft tissue swelling noted at the site of amputation. Orthopedic hardware seen along distal fibula/ lateral malleolus. JOINTS: Normal. SOFT TISSUES: As above OTHER FINDINGS: None. IMPRESSION: Can't be amputation mid 1st metatarsal and 2nd middle phalanx.
--- NOTE | 2017-10-21 12:19 | RAD ---
HISTORY: Sepsis Patient COMPARISON: 05/05/2018 FINDINGS: LUNGS: No infiltrate. Circumscribed nodular opacity mid right heike thorax consistent with healed fracture right 4th rib. PLEURA: No significant pleural effusion identified, no pneumothorax apparent. CARDIOVASCULAR: Normal heart size. Status post CABG. OSSEOUS STRUCTURES: No significant abnormalities. VISUALIZED UPPER ABDOMEN: Normal. OTHER FINDINGS: None. IMPRESSION: No active disease.
--- NOTE | 2017-10-21 12:20 | RAD ---
PROCEDURE: Radiographs of the pelvis and bilateral hips HISTORY: pain s/p fall COMPARISON: None. FINDINGS: BONES: Pelvis: Unremarkable. Right hip:Unremarkable. Left hip:Unremarkable. JOINTS: Right hip: Unremarkable. Left hip: Unremarkable. Sacroiliac Joints: Unremarkable. Pubic symphysis: Unremarkable. SOFT TISSUES: Vascular calcification is noted. OTHER FINDINGS: None. IMPRESSION: Unremarkable radiographs of the hips and pelvis.
--- NOTE | 2017-10-21 12:23 | RAD ---
PROCEDURE: Left Foot Radiographs. HISTORY: pain s/p fall COMPARISON: NoneGo 06/15/2017. FINDINGS: BONES: Possible acute fracture base of 5th proximal phalanx. Correlate with clinical examination. No other acute fracture appreciated. Status post amputation base of 2nd distal phalanx. Possible old healed fracture 4th proximal phalanx. JOINTS: Normal. SOFT TISSUES: Normal. OTHER FINDINGS: None. IMPRESSION: Possible acute fracture base of 5th proximal phalanx. Possible old healed fracture 4th proximal phalanx. Amputation base of 2nd distal phalanx.
--- NOTE | 2017-10-21 12:25 | CT ---
PROCEDURE: CT HEAD WITHOUT CONTRAST. HISTORY: WOODY s/p trauma COMPARISON: None available. TECHNIQUE: Axial computed tomography images were obtained through the head/brain without intravenous contrast. Radiation dose: Total exam DLP = 07/07/2017 mGy-cm. This CT exam was performed using one or more of the following dose reduction techniques: Automated exposure control, adjustment of the mA and/or kV according to patient size, and/or use of iterative reconstruction technique. FINDINGS: HEMORRHAGE: No intracranial hemorrhage. BRAIN: No mass effect or edema. Mild diffuse age-appropriate cerebral atrophy. VENTRICLES: Unremarkable. No hydrocephalus. CALVARIUM: Unremarkable. PARANASAL SINUSES: Unremarkable as visualized. No significant inflammatory changes. MASTOID AIR CELLS: Unremarkable as visualized. No inflammatory changes. OTHER FINDINGS: None. IMPRESSION: No intracranial hemorrhage. Age related atrophy. Otherwise unremarkable examination.
--- NOTE | 2017-10-21 12:41 | CT ---
PROCEDURE: CT Chest, Abdomen and Pelvis without intravenous contrast HISTORY: pain s/p fall COMPARISON: None. TECHNIQUE: Radiation dose: Total exam DLP = 1012.80 mGy-cm. This CT exam was performed using one or more of the following dose reduction techniques: Automated exposure control, adjustment of the mA and/or kV according to patient size, and/or use of iterative reconstruction technique. FINDINGS: CT CHEST WITHOUT CONTRAST: LUNGS: Clear. No nodule, mass or consolidation. MEDIASTINUM: CABG. Mild left atrial enlargement. No pericardial effusion. No aneurysmal dilatation of the thoracic aorta. Normal caliber of main pulmonary artery. . LYMPH NODES: Unremarkable. PLEURA: Unremarkable. No pneumothorax. No pleural fluid. BONES: Old healed fracture right anterior 4th rib. OTHER FINDINGS: None. CT ABDOMEN AND PELVIS: LIVER: Unremarkable. No gross lesion or ductal dilatation. GALLBLADDER AND BILE DUCTS: Cholelithiasis. No mural thickening pericholecystic fluid. PANCREAS: Unremarkable. No gross lesion or ductal dilatation. SPLEEN: Unremarkable. ADRENALS: Bilateral adrenal hypertrophy. 2.2 cm left adrenal mass measuring -8 Hounsfield units consistent with adenoma. KIDNEYS AND URETERS: No mass, calculus or hydronephrosis. Bilateral vascular calcification noted. There is some atrophy of the right kidney. It measures approximately 7.7 cm whereas the left kidney measures 12.2 cm. Significance uncertain. This could be vascular in origin. VASCULATURE: Unremarkable. No aortic aneurysm. BOWEL: Unremarkable. No obstruction. No gross mural thickening. APPENDIX: Not identified. No secondary findings. PERITONEUM: Unremarkable. No free fluid. No free air. LYMPH NODES: Unremarkable. No enlarged lymph nodes. BLADDER: Unremarkable. REPRODUCTIVE: Normal prostate BONES: No acute fracture. OTHER FINDINGS: None. IMPRESSION: No acute abnormality. No hemothorax or pneumothorax. No evidence of hemo peritoneum mid. No evidence of visceral injury. Mild atrophy of right kidney, possibly vascular in origin. Cholelithiasis without evidence cholecystitis. Status post CABG.
[2017-10-21] MEDS ORDERED: Sodium Chloride 0.9% 1,000 ML IV STA (13:16)
[2017-10-21] MEDS ORDERED: Sodium Chloride 0.9% 500 ML IV STA (13:17)
[2017-10-21] MEDS ORDERED: Dextrose 5%/0.9% NS 1,000 ML IV SCH (14:00)
[2017-10-21] MEDS: oxyCODONE 30 mg Immediate Release Tab PO PRN ×2 (14:43→21:55)
[2017-10-21 15:00] LABS: URINE BILIRUBIN NEGATIVE (NEGATIVE); URINE BLOOD LARGE (NEGATIVE); URINE GLUCOSE (UA) NEGATIVE (NEGATIVE); URINE LEUKOCYTE ESTERASE NEGATIVE Leu/uL (NEGATIVE); URINE PROTEIN 30 mg/dL (<30 mg/dL); URINE UROBILINOGEN 0.2 E.U./dL (<1 E.U./dL)
[2017-10-21 15:04] LABS: URINE APPEARANCE CLEAR (CLEAR); URINE COLOR YELLOW (YELLOW)
[2017-10-21 15:10] LABS: URINE BACTERIA MOD (NEG); URINE HYALINE CAST 0 - 2 /hpf
[2017-10-21 15:11] LABS: URINE FINE GRANULAR CAST 0 - 2 /hpf (0-2); URINE RBC 25 - 30 /hpf (0-2)
[2017-10-21] MEDS: Insulin Reg-LOW-Coverage SC SCH ×2 (16:30→23:47)
[2017-10-21] MEDS ORDERED: Insulin Reg-LOW-Coverage SC SCH (16:30)
[2017-10-21] MEDS ORDERED: Sod Polystyrene Sulf 15 gm/60 ml Susp PR ONE (18:00)
[2017-10-21] MEDS: Sodium Bicarbonate 8.4% 50 MEQ in Dextrose 5%/0.9% NS 1,000 ML IV SCH (18:10)
[2017-10-21 19:18] LABS: CALCIUM 10.5 mg/dL (8.4-10.5)
--- NOTE | 2017-10-21 23:41 | CARD ---
APPROVED REPORT EKG Measurement Heart [id number] [id number] <Conclusion> Sinus tachycardia Otherwise normal ECG
--- NOTE | 2017-10-22 04:01 | CON ---
DATE: HISTORY OF PRESENT ILLNESS: This is a 76-year-old gentleman with a history of type 2 diabetes, coronary artery disease, chronic kidney disease, who presented to emergency department by BLS for altered mental status. He was found to be hypoglycemic with blood glucose level down to 28. He received several D50's and was started on D5W IV fluids. His current blood glucose is 105. ER physician had initially a hard time to get his blood glucose up despite D5 containing IV solutions, and IC was called for further assessment and evaluation. PAST MEDICAL HISTORY: Diabetes type 2, coronary artery disease, CKD stage III, chronic back pain. PAST SURGICAL HISTORY: CABG. SOCIAL HISTORY: The patient is an ex-smoker. No alcohol or illicit drug abuse. FAMILY HISTORY: Noncontributory. HOME MEDICATIONS: Oxycodone, metformin, Ranexa, naloxegol, metoprolol, lisinopril, lactulose, glimepiride, Neurontin, Lasix, Colace, cyclobenzaprine, Plavix, Pletal, Xanax. ALLERGIES: PRASUGREL. REVIEW OF SYSTEM: Review of 12-organ system other than mentioned in history of present illness is negative. PHYSICAL EXAMINATION: VITAL SIGNS: Heart rate 106, blood pressure 141/78, respiratory rate 18, oxygen saturation 99% on room air. HEENT: Head and neck atraumatic. LUNGS: Clear to auscultation bilaterally. HEART: Regular rate and rhythm. S1 and S2 normal. ABDOMEN: Soft, nontender, nondistended. MUSCULOSKELETAL: Trace bilateral pedal and ankle edema. NEUROLOGICAL: The patient moves all extremities spontaneously. SKIN: Moist. PSYCHIATRIC: The patient is alert, awake and oriented x3. LABORATORY DATA: WBC is 7.7, hemoglobin 9.7, platelet count 169. Sodium 136, potassium 6.7, chloride 104, carbon dioxide 19, BUN 75, creatinine 2.4. Glucose 33, however repeated 109. AST 68, ALT 31, total bilirubin 0.8, CPK 1582. ProBNP 1820. VBG showed pH 7.22, lactic acid 1.8. INR 1.01. Chest, abdomen and pelvis CAT scan revealed no acute abnormality. No hemothorax. No pneumothorax. No evidence of hemoperitoneum. No evidence of visceral injury. Mild atrophy of right kidney, possibly vascular in origin. Cholelithiasis without evidence of cholecystitis, status post CABG. Head CT showed no acute intracranial pathology. Foot x-rays showed possible acute fracture of the fifth proximal phalanx, possible old healed fracture of fourth proximal phalanx, amputation base of second distal phalanx. Hip and pelvis x-ray showed unremarkable radiograph of the hips and pelvis. Chest x-ray showed rib fracture, but no pneumothorax. ASSESSMENT AND PLAN: This is 76-year-old gentleman with diabetes mellitus type 2, who is on oral hypoglycemic medication, who presented with worsening of chronic kidney disease and persistent hypoglycemia requiring dextrose containing maintenance IV fluids. At present time, the patient is alert, awake, oriented, normotensive, able to protect his airways, not in respiratory or otherwise distress. Able to maintain ventilation well. I would continue with D5 IV solution. Should he require escalation to D10 IV maintenance fluid, I would reevaluate, reassess and take him to the ICU for frequent Accu-Cheks. Most likely persistent hypoglycemia relates to worsening of his kidney function with oral hypoglycemic medication lingering longer. The patient also received insulin for hyperkalemia, which also may stay longer in the blood stream in the setting of worsening of acute kidney injury. At the present time, however, the patient is asymptomatic. We will continue to target euvolemia, euglycemia, normothermia and oxygen saturation more than 90%. We will continue deep venous thrombosis and gastrointestinal prophylaxis. ccm time 40 min Angel Farr MD [facility]
[2017-10-22] MEDS: Sodium Bicarbonate 8.4% 50 MEQ in Dextrose 5%/0.9% NS 1,000 ML IV SCH (06:01)
[2017-10-22 06:33] LABS: HEMOGLOBIN 8.2 g/dL (14.0-18.0); MEAN CELL VOLUME 89.1 fl (80.0-105.0); MEAN CORPUSCULAR HEMOGLOBIN 29.8 pg (25.0-35.0); MEAN CORPUSCULAR HGB CONC 33.5 g/dl (31.0-37.0); MEAN PLATELET VOLUME 9.8 fl (7.0-11.0); RBC 2.75 10^6/uL (3.5-6.1); RED CELL DISTRIBUTION WIDTH 14.2 % (11.5-14.5); WHITE BLOOD COUNT 4.8 10^3/ul (4.5-11.0)
[2017-10-22 07:42] LABS: ALBUMIN 3.4 g/dL (3.0-4.8); CALCIUM 9.4 mg/dL (8.4-10.5)
[2017-10-22] MEDS: Insulin Reg-LOW-Coverage SC SCH ×4 (08:07→21:23)
[2017-10-22 08:57] LABS: IRON 31 ug/dL (45-180)
[2017-10-22] MEDS: oxyCODONE 30 mg Immediate Release Tab PO PRN ×2 (09:05→18:30)
[2017-10-22 09:20] LABS: % IRON SATURATION 10 % (20-55); TOTAL IRON BINDING CAPACITY 309 ug/dL (261-462)
--- NOTE | 2017-10-22 10:37 | HP ---
CHIEF COMPLAINT AND HISTORY OF PRESENT ILLNESS: This is a 76-year-old male, who is coming in to the hospital, was having frequent falls at home. The patient's son, Ralf called me yesterday to give me information regarding the patient's history. He has been having multiple falls, has multiple ecchymotic areas on his arms and legs. The patient is not sure of why he has been falling. The patient does have a history of coronary artery disease, diabetes type 2, CKD. He has had multiple foot ulcers and has had surgery. He was supposed to get a toe amputation today at [facility], but this has been canceled. When he was found by EMS he had glucose that was low at 28, he was given D50. He came in to the ER. His glucose was again low and so he was given D50. The patient was admitted to the hospital for further evaluation. This morning, he is awake and alert. He is able to communicate. He has no complaints of any chest pain. No shortness of breath. He says he is not able to get some sleep last night. He does admit to having falls. He has no chest pain. No shortness of breath. No abdominal pain or back pain. No dysuria. He does have chronic back pain, but this not worse. REVIEW OF SYMPTOMS: All other review of symptoms are within normal limits except that was mentioned. ALLERGIES: TO PRASUGREL. HOME MEDICATIONS: Have been reviewed on the [facility]. PAST MEDICAL HISTORY: 1. Diabetes type 2. 2. Coronary artery disease. 3. CKD stage 3. 4. Chronic back pain. 5. Peripheral arterial disease. 6. Pneumonia. PAST SURGICAL HISTORY: CABG, leg angioplasty. SOCIAL HISTORY: He is a former smoker. He currently does not smoke. He lives at home with his , she had a stroke and is at rehab facility. FAMILY HISTORY: Noncontributory. PHYSICAL EXAMINATION: VITAL SIGNS: Temperature is 99.6, pulse of 89, blood pressure is 106/60, respirations 19. Height is 5 feet 9. Weight is 160 pounds. BMI is 23.6. GENERAL: The patient lying in bed, uncomfortable, and in no acute distress. HEENT: Atraumatic and normocephalic. Anicteric sclerae. Moist mucosa. [place] conjunctivae. No oral lesions. NECK: No JVD, anterior and posterior adenopathy, thyromegaly, or bruits. CARDIOVASCULAR: S1 and S2 regular. No murmur, rubs, or gallop. LUNGS: Clear to auscultation bilaterally. No wheezes, rales, or rhonchi. ABDOMEN: Bowel sounds are positive. Soft, nontender and nondistended. No hepatosplenomegaly. No rebound and no guarding EXTREMITIES: No cyanosis, clubbing, or edema. NEUROLOGIC: No facial asymmetry. Tongue is midline. No uvula deviation. Power is 5/5 upper extremity and lower extremity. Sensation intact in upper extremity and lower extremity. In the foot, there is an ulcer, dry and clean. PSYCHIATRIC: He is awake, alert and oriented x3. No anxiety or depression. He has normal affect. GENITOURINARY: No CVA tenderness. VASCULAR: 2+ pulses in the carotid pulses and pedal pulses. SKIN: No erythema or nodules. Bilateral ecchymosis in the arms and the legs. SPINE: Shows normal curvature. LABORATORY DATA: White count of 7.7, hemoglobin 9.7, platelet count is 169. INR is 1.01. The patient had a chemistry that shows a sodium 136, potassium 6.7. He has a creatinine of 2.4. He has a CK of 1582. Repeat potassium this morning is 5.1. His creatinine is 1.4. His glucose is 111. His EKG shows sinus tachycardia at a rate of 102, QTc is 404. His chest x-ray done. It shows no active disease. CT of the head done shows no intracranial hemorrhage. The left foot x-ray done shows possible acute fracture at the base of the fifth proximal phalanx, possible old healed fracture of the fourth proximal phalanx. CT of the chest, abdomen and pelvis shows no acute abnormalities. No hemothorax or pneumothorax. There is mild atrophy of the right kidney. Hip x-ray bilateral shows unremarkable radiographs of the hips and pelvis. Right foot x-ray shows right first metatarsal amputation. ASSESSMENT: 1. Fall secondary to hypoglycemia. 2. Chronic kidney disease with acute kidney injury. 3. Chronic back pain. 4. Coronary artery disease, status post coronary artery bypass graft. 5. Peripheral arterial disease. 6. Diabetes type 2. 7. Hypertension. 8. Possible acute fracture of the left fifth proximal phalanx. 9. Hyperkalemia. 10. Anemia, chronic. PLAN: The patient is going to be admitted to the hospital. He was having frequent falls secondary to his hypoglycemia. The patient had acute kidney injury. He was placed on IV fluids. His creatinine has improved. The patient was given calcium, glucose and Kayexalate in the ER yesterday. The patient has been placed on Neurontin for his neuropathy. He is on insulin sliding scale. He is probably hypoglycemic because of his acute kidney injury and the fact that he is on oral hypoglycemics. I will hold the oral hypoglycemics. We will continue his Plavix. I will discontinue his bicarb drip. At this point, he will also not need telemetry. He will get repeat blood work again tomorrow. We will speak to the patient's son to give him an update. We will repeat his blood work tomorrow. He is going to be on a carbohydrate consistent diet. He is going to get physical therapy as well. He is complaining of frequent urination. He may have an enlarged prostate. He has been complaining about this issue as an outpatient as well. I will place him on Flomax to see if this helps. Ronen Trinidad MD
--- NOTE | 2017-10-22 20:12 | US ---
PROCEDURE: Lower extremity DEMOND exam HISTORY: Peripheral vascular disease with pain and claudication. Previous toe amputations. PHYSICIAN(S): Jay Bradley MD. FINDINGS: The resting DEMOND's are inaccurate due to calcification. The brachial systolic pressures are symmetric. The right high thigh PVR waveform is blunted compared to the left. The left high thigh PVR waveform is normal. The findings are consistent with right iliac occlusive disease. The left calf PVR waveform augments normally. The right calf PVR waveform is mildly blunted. This could represent subtle right SFA occlusive disease. The right ankle PVR waveform is relatively normal. The left ankle PVR waveform is mildly blunted. The findings are consistent with tibial disease, greater on the left than the right. IMPRESSION: 1. Limited study. 2. Right iliac occlusive disease. 3. Bilateral tibial disease, greater on the left than the right.
--- NOTE | 2017-10-22 22:09 | CON ---
DATE: HISTORY OF PRESENT ILLNESS: This is a 76-year-old male seen at bedside for consultation, evaluation and management of diabetic ulcerations on both feet. The patient states that he was having multiple falls and fell approximately 2 days ago and was admitted to the hospital. He states that he was supposed to have his distal left second digit amputated this week, but he was admitted to the hospital for falls. The surgeon is located at [facility] and his name Dr. Ralph Centeno. PAST MEDICAL HISTORY: The patient's medical history is significant for type 2 diabetes with peripheral arterial disease and peripheral neuropathy, coronary artery disease, CKD stage III, and chronic back pain. SOCIAL HISTORY The patient is , lives at home with his who is currently in a rehabilitative facility at [facility] in [place] as she recently had a stroke. He was a former heavy smoker. He no longer smokes. He does not drink alcohol or use illicit drugs. PAST SURGICAL HISTORY: Includes recent right great toe amputation, CABG, and leg angioplasty. ALLERGIES: THE PATIENT IS ALLERGIC TO PRASUGREL. MEDICATIONS: All medications are noted in MAR. PHYSICAL EXAMINATION VITAL SIGNS: Revealed temperature of 99.6, pulse rate of 90, blood pressure 118/57, respiratory rate of 14. LABORATORY FINDINGS: Reveal white count of 4.8, hemoglobin of 8.2, hematocrit of 24.5, platelet count of 154. His ESR is elevated at 65. Right foot x-rays reveal amputation of the mid first metatarsal and second middle phalanx. No evidence of osteomyelitis. Left foot x-rays reveal old healing fracture of the fourth proximal phalanx as well as amputation of the base of the second distal digit. X-ray shows possible fracture at the right fifth proximal phalanx. However, clinical correlation does not connect. OBJECTIVE: Nonpalpable pedal pulses noted bilaterally. Absent pedal hair growth noted bilaterally. There is noted to be an absent right hallux and distal second digit. The patient is unable to detect 5.07 g monofilament wire testing bilaterally. Lower extremity skin presents thin, shining discolored bilaterally. Capillary filling time is delayed on all the digits. There is a full-thickness ulceration at the amputation site on the right first metatarsal phalangeal joint region. The ulceration measures approximately 1.2 cm x 1 cm x 0.4 cm. The ulcer does not probe the tendon and bone and base of the ulcer is primarily granular. Left foot presents with a gangrenous distal second digit encompasses the entire digit distally. The ulceration has demarcated. There is no malodor. There is no purulence. There is no cellulitis or ascending cellulitis. There is noted to be abrasions on the medial aspect of the hallux and first metatarsal phalangeal joint second to fall. The area is void of any purulence and no signs of cellulitis. ASSESSMENT: Left gangrenous second distal digit, abrasions secondary to trauma at the hallux and medial aspect of the foot, full-thickness diabetic ulceration on the right foot at the noted hallux amputation site. PLAN: We will order arterial Dopplers to ascertain lower extremity perfusion. Wounds were cultured and submitted for sensitivities. Both feet were cleansed with normal sterile saline and application of Maxorb and a dry sterile dressing was applied to the right foot. Left foot was dressed with Xeroform and a dry sterile dressing. The patient states he wishes to continue going to Dr. Ralph Centeno at [facility] and his office in [place]. We will continue with local wound care at this time. Fuad Ellis DPM
[2017-10-23 06:16] LABS: HEMOGLOBIN 8.6 g/dL (14.0-18.0); MEAN CELL VOLUME 89.3 fl (80.0-105.0); MEAN CORPUSCULAR HEMOGLOBIN 29.8 pg (25.0-35.0); MEAN CORPUSCULAR HGB CONC 33.3 g/dl (31.0-37.0); MEAN PLATELET VOLUME 9.1 fl (7.0-11.0); RBC 2.89 10^6/uL (3.5-6.1); RED CELL DISTRIBUTION WIDTH 13.8 % (11.5-14.5)
[2017-10-23 06:50] LABS: ALB/GLOB RATIO 1.1 (1.1-1.8); ALBUMIN 3.6 g/dL (3.0-4.8); ALT/SGPT 24 U/L (7-56); AST/SGOT 35 U/L (17-59); BLOOD UREA NITROGEN 45 mg/dL (7-21); CALCIUM 9.5 mg/dL (8.4-10.5); GFR AFRICAN-AMERICAN > 60; GFR NON-AFRICAN AMERICAN 54
[2017-10-23] MEDS: Insulin Reg-LOW-Coverage SC SCH ×4 (08:50→22:04)
[2017-10-23] MEDS ORDERED: Iron Sucrose 100 mg/5 ml Inj IVP SCH (10:00)
[2017-10-23] MEDS: Mupirocin 2% Ointment 15 GM TUBE TOP SCH (10:04)
--- NOTE | 2017-10-23 12:45 | PN ---
DATE: 10/23/2017 SUBJECTIVE: A 76-year-old diabetic male, seen at bedside for continued evaluation and management of bilateral diabetic foot ulcerations. The patient states he is feeling better since admission. The patient's vital signs revealed a temperature of 98.2, pulse rate of 73, blood pressure of 159/75, respiratory rate of 20. Laboratory findings reveal white count of 4, hemoglobin of 8.6, hematocrit of 25.8, platelet count of 148. ESR is elevated at 65. Culture of the right foot ulceration reveals no organisms seen preliminarily. Arterial ultrasound taken yesterday reveals right iliac occlusive disease and bilateral tibial disease, greater on the left than on the right. Left foot x-rays with old healing fracture of the first proximal phalanx as well as amputation of the base of the second distal digit. Right foot x-rays reveal fracture at the right fifth proximal phalanx. However, clinical correlation does not match. OBJECTIVE: Nonpalpable pedal pulses noted bilaterally. The patient is unable to detect 5.07 g monofilament wire testing bilaterally. Absent pedal hair growth noted bilaterally. Lower extremity skin presents thin, shiny, discolored bilaterally. Capillary filling time is delayed on all the digits. There is noted to be an absent right hallux and distal second digit. There is a full-thickness ulceration at the amputation site at the right first metatarsophalangeal joint region that measures approximately 1.2 cm x 1 cm x 0.4 cm. Base of the ulcer is primarily granular with some fibrotic tissue. There is no purulence. There is no malodor. The wound does not probe to tendon or bone. Left foot presents with a gangrenous distal second digit that encompasses the entire digit distally. The gangrenous ulceration has demarcated and shows no proximal encroachment. There is no malodor. There is no purulence. There is no underlying abscess formation. There noted to be superficial abrasions on the medial aspect of the hallux and right first metatarsophalangeal joint secondary to his fall. There are also superficial abrasions at the tibial tuberosities of each knee. All of the areas any purulence and showed no signs of cellulitis or acute bacterial infection. ASSESSMENT: Left gangrenous second distal digit full-thickness diabetic ulceration on the right foot at the amputation site at the hallux region. Superficial abrasion secondary to trauma on the hallux medial aspect of the left foot as well as at both tibial tuberosities. PLAN: The patient was examined, reviewed arterial Dopplers. Recommend vascular consult by Dr. Jay Bradley to ascertain whether lower extremity perfusion can be increased via intervention. Culture and sensitivities were reviewed. Both feet were cleansed with normal sterile saline. We will apply Bactroban to the left foot ulceration with a dry sterile dressing. We will continue to apply Xeroform to all the other wounds on the legs and feet. Once again, the patient states he wishes to continue going to Dr. Ralph Centeno at [facility] for followup. We will continue to see the patient with local wound care while in-house. Fuad Ellis DPM
--- NOTE | 2017-10-23 13:58 | PN ---
DATE: 10/23/2017 SUBJECTIVE: Patient has no complaints of any chest pain or shortness of breath. He states he was able to get sleep last night. PHYSICAL EXAMINATION: VITAL SIGNS: Temperature is 98.2, pulse is 73, blood pressure is 159/75, respirations 20. GENERAL: The patient is lying in bed, flat, comfortable. HEENT: No oral lesion. Anicteric sclerae. Moist mucosa. NECK: No JVD, adenopathy, or thyromegaly. CARDIOVASCULAR: S1 and S2, regular. No murmurs, rubs, or gallops. LUNGS: Clear to auscultation bilaterally. No wheeze, rales, or rhonchi. ABDOMEN: Bowel sounds are positive. Soft, nontender and nondistended. EXTREMITIES: No cyanosis, clubbing or edema. SKIN: There are multiple ecchymotic areas in the chest, arms and legs. LABORATORY DATA: White count of 4, hemoglobin of 8.6. Chemistry shows creatinine is 1.3. Iron saturation is 10% with the ferritin of 132. Fingerstick better in the over 100s. ASSESSMENT: 1. Hypoglycemia, improved. 2. Chronic kidney disease with acute kidney injury, improved. 3. Chronic back pain. 4. Coronary artery disease, status post coronary artery bypass graft. 5. Peripheral arterial disease. 6. Gangrene in the left second toe. 7. Diabetes type 2. 8. Hypertension. 9. Acute fracture of the left fifth proximal phalanx. 10. Hyperkalemia, resolved. 11. Anemia of chronic secondary to iron deficiency. PLAN: The patient is currently comfortable. He is on Flomax. He is on gabapentin for his neuropathy. He is on Plavix. The patient is also going to be on aspirin. He is on a carbohydrate consistent diet. We will change his fingersticks to before meals and at bedtime. I did speak to the patient's son yesterday, Ralf, to give him an update. I will place the patient on Venofer for the iron deficiency. I will see if he qualifies for the Transitional Care Unit. Ronen Trinidad MD [facility] # [id number]
[2017-10-23] MEDS: oxyCODONE 30 mg Immediate Release Tab PO PRN (15:13)
[2017-10-23] MEDS: CADEXOMER IODINE 0.9% GEL 10G TOP SCH (15:13)
[2017-10-24] MEDS: Insulin Reg-LOW-Coverage SC SCH ×4 (07:53→21:45)
[2017-10-24] MEDS: oxyCODONE 30 mg Immediate Release Tab PO PRN ×2 (09:34→17:39)
[2017-10-24] MEDS: CADEXOMER IODINE 0.9% GEL 10G TOP SCH (09:37)
[2017-10-24] MEDS: Mupirocin 2% Ointment 15 GM TUBE TOP SCH (09:37)
--- NOTE | 2017-10-24 13:46 | CP.PCM.PN ---
Subjective - Date & Time of Evaluation Date of Evaluation: 10/24/17 Time of Evaluation: 12:20 - Subjective Subjective: Podiatry Progress Note- Dr. Goodrich. 76 year old male seen at bedside for bilateral foot wounds. Pt is in good spirits. Pt resting comfortably upon arrival and reports no recent pain to areas or any acute overnight events. He denies recent f/c/cp/sob/n/v/d. Pt is clinically same. Objective - Vital Signs/Intake and Output Vital Signs (last 24 hours): Temp Pulse Resp BP Pulse Ox 97.6 F 70 18 138/76 100 10/24/17 07:37 10/24/17 09:35 10/24/17 07:37 10/24/17 09:35 10/24/17 07:37 Intake and Output: 10/24/17 10/24/17 06:59 18:59 Intake Total 120 Output Total 200 Balance -80 - Medications Medications: Current Medications Aspirin (Ecotrin) 81 mg PO DAILY [facility] Last Admin: 10/24/17 09:35 Dose: 81 mg Cadexomer Iodine (Iodosorb) 0 gm TOP DAILY [facility] Last Admin: 10/24/17 09:37 Dose: Not Given Clopidogrel Bisulfate (Plavix) 75 mg PO DAILY [facility] Last Admin: 10/24/17 09:34 Dose: 75 mg Gabapentin (Neurontin) 300 mg PO HS [facility] PRN Reason: Protocol Last Admin: 10/23/17 21:30 Dose: 300 mg Iron Sucrose 200 mg/ Sodium (Chloride) 110 mls @ 110 mls/hr IVPB DAILY [facility] Stop: 10/28/17 10:01 Last Admin: 10/24/17 09:33 Dose: 110 mls/hr Insulin Human Regular (Humulin R Low) 0 units SC ACHS [facility] PRN Reason: Protocol Last Admin: 10/24/17 12:05 Dose: 2 units Metoprolol Tartrate (Lopressor) 50 mg PO BID [facility] Last Admin: 10/24/17 09:35 Dose: 50 mg Mupirocin (Bactroban Ointment) 0 gm TOP DAILY [facility] Last Admin: 10/24/17 09:37 Dose: 1 appful Oxycodone HCl (Oxycodone Immediate Release Tab) 30 mg PO QID PRN PRN Reason: Pain, severe (8-10) Last Admin: 10/24/17 09:34 Dose: 30 mg Tamsulosin HCl (Flomax) 0.4 mg PO DAILY [facility] Last Admin: 10/24/17 09:34 Dose: 0.4 mg - Labs Labs: 10/23/17 05:30 10/23/17 05:30 PT 11.6 SECONDS (9.4-12.5) 10/21/17 10:06 INR 1.01 (0.93-1.08) 10/21/17 10:06 APTT 26.4 Seconds (25.1-36.5) 10/21/17 10:06 - Constitutional Appears: Well, Non-toxic, No Acute Distress - Extremities Exam Additional comments: Bilateral lower extremity focused exam. Dressings clean, dry, and intact. Neuro-vascular status compromised. Pt is unable to detect 5.07g monofillement testing bilaterally. Left foot capillary refill time <5 ceconds. Skin runs warm to cool proximal to distal bialterally. DERM: Right hallux amputation site noted with full thickness ulceration at this level measuring 1.2 x 1 x0.4 cm with fibrotic base.. No purulence, active serous drainage present. No mal-odor noted. No periwound erythema noted. Negative probe to bone. Left foot 2nd digit ischemic darkened hyperpigmentation noted to distal aspect of 2nd digit. No purulence noted, no mal-odor detected. Gangrenous segment is well demarcated and localized to 2nd digit. - Neurological Exam Neurological Exam: Alert, Awake, Oriented x3 - Psychiatric Exam Psychiatric exam: Normal Affect, Normal Mood Assessment and Plan - Assessment and Plan (Free Text) Assessment: 76 year odl male with 1) [place] amputation site full thickness ulceration, secondary to diabetes. 2) Left 2nd digit ischemic gangrene Plan: Pt seen and evaluated. Chart, labs, and vitals reviewed. Discussed with attending, Dr Goodrich, who endorsed the following plan. Pt is absent leukocytosis, afebrile. Intervention: Continue local wound care. No surgical intervention at this time. Wound sites cleansed with normal saline. Right ulcer dressed with maxorb, and DSD. Left ischemic site dressed with bactroban, xeroform, and DSD. Maxorb available for use for application to right ulceration site, starting tomorrow. Pt is stable from podiatry stand point. Podiatry will continue to follow pt while inhouse.
--- NOTE | 2017-10-24 16:04 | PN ---
DATE: 10/24/2017 SUBJECTIVE: The patient has no complaints of any chest pain. No shortness of breath or headaches. PHYSICAL EXAMINATION: VITAL SIGNS: Temperature is 97.6, pulse of 70, blood pressure 138/76, respiration is 18. GENERAL: The patient is lying in bed, flat, comfortable. HEENT: No oral lesion. Anicteric sclerae. Moist mucosa. NECK: No JVD, adenopathy, or thyromegaly. CARDIOVASCULAR: S1 and S2, regular. No murmurs, rubs, or gallops. LUNGS: Clear to auscultation bilaterally. No wheeze, rales, or rhonchi. ABDOMEN: Bowel sounds are positive, soft, nontender and nondistended. EXTREMITIES: No cyanosis, clubbing or edema. LABORATORY DATA: White count of 4, hemoglobin 8.6. Creatinine is 1.3. ASSESSMENT: 1. Hypoglycemia, improved. 2. Chronic kidney disease with acute kidney injury, improved. 3. Chronic back pain. 4. Coronary artery disease, status post coronary artery bypass graft. 5. Peripheral arterial disease. 6. Gangrene of the left second toe. 7. Diabetes type 2. 8. Hypertension. 9. Acute fracture of the left fifth proximal phalanx. 10. Hyperkalemia, resolved. 11. Anemia secondary to iron deficiency. PLAN: The patient has been given IV iron. He has wounds that showed Enterococcus. The patient is being followed by Dr. Ellis. The patient is waiting for surgery by Podiatry. He is currently feeling better. The patient will continue with following up at [facility] for his vascular issues as well as his foot issues. The patient is on aspirin. He is going to continue with Flomax. The patient is on oxycodone for pain. Ronen Trinidad MD
[2017-10-25] MEDS: oxyCODONE 30 mg Immediate Release Tab PO PRN (06:03)
[2017-10-25 07:48] VITALS: BP 154/72; PULSE 67; RESP 20; TEMP 97.7; O2SAT 99
[2017-10-25] MEDS: Insulin Reg-LOW-Coverage SC SCH (08:04)
[2017-10-25] MEDS: CADEXOMER IODINE 0.9% GEL 10G TOP SCH (09:06)
[2017-10-25] MEDS: Mupirocin 2% Ointment 15 GM TUBE TOP SCH (09:07)
--- NOTE | 2017-10-26 03:33 | DS ---
DISCHARGE SUMMARY: This is a 76-year-old male who had come into the hospital because of hypoglycemia and acute kidney injury. He was given IV fluids. He was also placed on dextrose with D50 that was given to him to help prevent the hypoglycemia. He has improvement of his symptoms. He was to get surgery done 3 days ago, but this was canceled because of his admission to the hospital. He has an appointment today for his surgeon and he is asking about going home. He initially had agreed to the Transitional Care Unit, but now would prefer to go home. He is only going to be on metformin at home. He does have multiple bruises because of his falls. I did advise that it may be better to go to the rehab floor at [facility] Unit, but he prefers to be at home to be able to get to the followup for his surgeon. He is supposed to have surgery on his foot. He has no complaints of any headaches or dizziness. No nausea. No vomiting. PHYSICAL EXAMINATION: VITAL SIGNS: Temperature is 97.7, pulse of 67, blood pressure 154/72, respirations 20. GENERAL: The patient is lying in bed, flat, comfortable. HEENT: No oral lesion. Anicteric sclerae. Moist mucosa. NECK: No JVD, adenopathy, or thyromegaly. CARDIOVASCULAR: S1 and S2, regular. No murmurs, rubs, or gallops. LUNGS: Clear to auscultation bilaterally. No wheeze, rales, or rhonchi. ABDOMEN: Bowel sounds are positive, soft, nontender, and nondistended. EXTREMITIES: No cyanosis, clubbing, or edema. ASSESSMENT: 1. Hypoglycemia, improved. 2. Chronic kidney disease with acute kidney injury, improved. 3. Chronic back pain. 4. Coronary artery disease, status post coronary artery bypass grafting. 5. Peripheral arterial disease. 6. Gangrene of the left second toe. 7. Diabetes type 2. 8. Hypertension. 9. Acute fracture of the left fifth proximal phalanx. 10. Hyperkalemia, resolved. 11. Anemia secondary to iron deficiency, given IV iron. PLAN: The patient is on aspirin. He is going to continue the Flomax. He says the Flomax did not help him. I advised that he can see a urologist if he stays in the Transitional Care Unit; he initially agreed, but he prefers to go home. He is going to be on his Plavix. He is on Neurontin for neuropathy and is on oxycodone for pain. He is getting IV iron. He is on carbohydrate-consistent diet for his diabetes. CONDITION: Stable. ACTIVITY: Increase as tolerated. Follow up with Dr. Bradley and Dr. Trinidad in 1 to 2 weeks after discharge. Follow up with Podiatry and Interventional Radiology for his peripheral arterial disease and his foot ulcers. Ronen Trinidad MD
== END 2017-10-25 11:53 | disposition home or self-care (01) | DRG 638 ==
LOC: ED 09:17 → ERH 13:17 → 2RNO 19:11 → 3RNO 10-22 19:18
PROVIDERS: ADMIT Internal Medicine Nephrology; ATTEND Internal Medicine Nephrology
DX: E11.649 Type 2 diabetes mellitus with hypoglycemia without coma (principal); N17.9 Acute kidney failure, unspecified; E11.52 Type 2 diabetes mellitus with diabetic peripheral angiopathy with gangrene; I25.10 Atherosclerotic heart disease of native coronary artery without angina pectoris; N18.3 Chronic kidney disease, stage 3 (moderate); D50.9 Iron deficiency anemia, unspecified; I12.9 Hypertensive chronic kidney disease with stage 1 through stage 4 chronic kidney disease, or unspecified chronic kidney disease; E87.5 Hyperkalemia; R29.6 Repeated falls; G89.29 Other chronic pain; M54.9 Dorsalgia, unspecified; E11.22 Type 2 diabetes mellitus with diabetic chronic kidney disease; L97.519 Non-pressure chronic ulcer of other part of right foot with unspecified severity; L97.529 Non-pressure chronic ulcer of other part of left foot with unspecified severity; E11.621 Type 2 diabetes mellitus with foot ulcer; E11.42 Type 2 diabetes mellitus with diabetic polyneuropathy; S90.511A Abrasion, right ankle, initial encounter; S90.415A Abrasion, left lesser toe(s), initial encounter; W19.XXXA Unspecified fall, initial encounter; Y92.9 Unspecified place or not applicable; Z87.01 Personal history of pneumonia (recurrent); Z89.411 Acquired absence of right great toe; Z95.1 Presence of aortocoronary bypass graft; Z87.891 Personal history of nicotine dependence

== ENCOUNTER 2018-01-19 11:12 | Emergency (ER) | payer MEDICARE, OTHER ==
[2018-01-19 12:01] VITALS: RESP 18; TEMP 98.7; O2SAT 100; BMI 27.1
--- NOTE | 2018-01-19 12:12 | ED PDOC ---
Arrival/HPI - General Time Seen by Provider: 01/19/18 11:13 Historian: Patient - History of Present Illness Narrative History of Present Illness (Text): 01/19/18 12:09 77yo male with pmhx of hypertension, DM, CAD s/o CABG who present with complaint of hematuria x 5days. States he notified his PMD and was referred to a Urologist, but he couldn't find one. He denies penile pain, back pain, abdominal pain, nausea, vomiting, weight loss, night sweat, any other complaint. Past Medical History - Provider Review Nursing Documentation Reviewed: Yes - Infectious Disease Hx of Infectious Diseases: None - Tetanus Immunization Tetanus Immunization: Unknown - Cardiac Hx Cardiac Disorders: Yes Hx Circulatory Problems: Yes Hx Hypertension: Yes Hx Pacemaker: No Hx Peripheral Edema: Yes Hx Peripheral Vascular Disease: Yes Other/Comment: CAD, s/p CABG - Pulmonary Hx Respiratory Disorders: Yes Hx Pneumonia: Yes - Neurological Hx Neurological Disorder: Yes Other/Comment: neuropathy BL LE - HEENT Other/Comment: GLASSES - Renal Hx Renal Disorder: Yes - Endocrine/Metabolic Hx Diabetes Mellitus Type 2: Yes - Hematological/Oncological Hx Blood Disorders: Yes Hx Anemia: Yes (Iron infusion x10,BTs) Other/Comment: Blood tranfusions - Integumentary Hx Dermatological Disorder: No - Musculoskeletal/Rheumatological Hx Musculoskeletal Disorders: Yes Hx Falls: Yes Hx Osteoarthritis: Yes - Gastrointestinal Hx Gastrointestinal Disorders: Yes (GI BLEED 10-26-13) - Genitourinary/Gynecological Hx Genitourinary Disorders: No - Psychiatric Hx Emotional Abuse: No Hx Physical Abuse: No Hx Substance Use: No - Surgical History Hx Cardiac Catheterization: Yes Hx Coronary Stent: Yes - Anesthesia Hx Anesthesia Reactions: No Hx Malignant Hyperthermia: No - Suicidal Assessment Feels Threatened In Home Enviroment: No Family/Social History - Physician Review Nursing Documentation Reviewed: Yes Family/Social History: Unknown Family HX Smoking Status: Former Smoker Hx Alcohol Use: No Hx Substance Use: No Hx Substance Use Treatment: No Allergies/Home Meds Allergies/Adverse Reactions: Allergies prasugrel HCl [From Effient] Adverse Reaction (Severe, Verified 11/09/15 19:06) ANAPHYLAXIS Pt states he began to bleed out when he took this medication and no longer takes it. Home Medications: Home Meds Medication Instructions Recorded Confirmed Alprazolam [Xanax] 0.5 mg PO BID 07/07/17 07/07/17 Cilostazol [Pletal] 50 mg PO BID 07/07/17 07/07/17 Clopidogrel [Plavix] 75 mg PO DAILY 07/07/17 10/21/17 Cyclobenzaprine [Flexeril] 10 mg PO BID 07/07/17 10/21/17 Docusate [Colace] 100 mg PO DAILY 07/07/17 10/21/17 Furosemide [Lasix] 40 mg PO QOTHERDAY 07/07/17 10/21/17 Gabapentin [Neurontin] 300 mg PO HS 07/07/17 07/07/17 Lactulose [Generlac] 10 gm PO BID 07/07/17 07/07/17 Lisinopril [Zestril] 5 mg PO DAILY 07/07/17 10/21/17 Metoprolol Tartrate [Lopressor] 50 mg PO BID 07/07/17 07/07/17 Naloxegol Oxalate [Movantik] 25 mg PO DAILY 07/07/17 07/07/17 Ranolazine [Ranexa] 500 mg PO BID 07/07/17 07/07/17 metFORMIN [glucOPHAGE] 850 mg PO BID 07/07/17 10/21/17 oxyCODONE [oxyCODONE Immediate 30 mg PO QID 07/07/17 07/07/17 Release Tab] Aspirin [Lo-Dose Aspirin EC] 81 mg PO DAILY 10/21/17 10/21/17 Cilostazol [Pletal] 100 mg PO BID 10/21/17 10/21/17 Dexlansoprazole [Dexilant] 60 mg PO DAILY 10/21/17 10/21/17 Donepezil [Aricept] 5 mg PO HS 10/21/17 10/21/17 Folic Acid 1 mg PO DAILY 10/21/17 10/21/17 Review of Systems - Physician Review All systems were reviewed & negative as marked: Yes - Review of Systems Constitutional: Normal Eyes: Normal ENT: Normal Respiratory: Normal Cardiovascular: Normal Gastrointestinal: Normal Genitourinary Male: Hematuria. absent: Dysuria, Frequency Musculoskeletal: Normal Skin: Normal Neurological: Normal Endocrine: Normal Hemo/Lymphatic: Normal Psychiatric: Normal Physical Exam Vital Signs Reviewed: Yes Vital Signs Temp Pulse Resp BP Pulse Ox 01/19/18 16:05 98.7 F 88 18 145/88 100 01/19/18 14:31 65 18 145/70 100 01/19/18 11:59 98.7 F 71 18 142/73 100 Temperature: Afebrile Blood Pressure: Normal Pulse: Regular Respiratory Rate: Normal Appearance: Positive for: Well-Appearing, Non-Toxic, Comfortable Pain Distress: None Mental Status: Positive for: Alert and Oriented X 3 - Systems Exam Head: Present: Atraumatic, Normocephalic Pupils: Present: PERRL Extroacular Muscles: Present: EOMI Conjunctiva: Present: Normal Mouth: Present: Moist Mucous Membranes Neck: Present: Normal Range of Motion Respiratory/Chest: Present: Clear to Auscultation, Good Air Exchange. No: Respiratory Distress, Accessory Muscle Use Cardiovascular: Present: Regular Rate and Rhythm, Normal S1, S2. No: Murmurs Abdomen: No: Tenderness, Distention, Peritoneal Signs, Rebound, Guarding, McBurney's Point Tender, Rovsing's Sign Present Back: Present: Normal Inspection. No: CVA Tenderness Upper Extremity: Present: Normal Inspection. No: Cyanosis, Edema Lower Extremity: Present: Normal Inspection. No: Edema Neurological: Present: GCS=15, CN II-XII Intact, Speech Normal Skin: Present: Warm, Dry, Normal Color. No: Rashes Psychiatric: Present: Alert, Oriented x 3, Normal Insight, Normal Concentration Medical Decision Making ED Course and Treatment: 01/19/18 19:35 77yo male present with complaint of hematuria. He had blood in his UA Case was DW Dr. Magui Wu He requested PSA and abdominal/pelvic CT w/wo contrast States patient should f/u with his office tomorrow. Lab was ordered and reviewed Abdominal/pelvic CT IMPRESSION: Thick-walled urinary bladder. Recommend correlation with urinalysis. Cystoscopy may be considered if indicated. Enlarged prostate gland. Recommend correlation with PSA. Bilateral adrenal masses appear consistent with adenomas. Bilateral nonobstructing renal calculi. No hydronephrosis. Mild bilateral perinephric stranding. Bilateral too small to characterize renal hypodensities ; statistically likely cysts. The right kidney is diminutive. Decompressed gallbladder precludes adequate evaluation. Cholelithiasis. Hepatomegaly. Splenomegaly. Additional findings as above. Result and plan was DW the pt. He was given Dr. wu's information and strongly advised to f/u tomorroe. - Lab Interpretations Lab Results: 01/19/18 13:05 01/19/18 13:05 Lab Results 01/19/18 13:15: Prostate Specific Ag 0.4 01/19/18 13:05: Sodium 141, Potassium 4.3, Chloride 104, Carbon Dioxide 26, Anion Gap 16, BUN 20, Creatinine 1.1, Est GFR ( Amer) > 60, Est GFR (Non- Af Amer) > 60, Random Glucose 125 H, Calcium 9.7, Total Bilirubin 1.2, AST 76 H D, ALT 117 H, Alkaline Phosphatase 213 H D, Total Protein 8.3, Albumin 4.2, Globulin 4.1, Albumin/Globulin Ratio 1.0 L 01/19/18 13:05: WBC 3.6 L, RBC 3.99, Hgb 12.0 L D, Hct 35.7 L, MCV 89.5, MCH 30.1, MCHC 33.6, RDW 14.0, Plt Count 137, MPV 9.7, Gran % 62.7, Lymph % (Auto) 22.0, [place] % (Auto) 14.8 H, Eos % (Auto) 0.5 L, Baso % (Auto) 0.0, Gran # 2.28, Lymph # (Auto) 0.8 L, [place] # (Auto) 0.5, Eos # (Auto) 0.0, Baso # (Auto) 0.00 01/19/18 12:00: Urine Color Yellow, Urine Appearance Clear, Urine pH 6.0, Ur Specific [place] 1.025, Urine Protein 100 H, Urine Glucose (UA) Negative, Urine Ketones Negative, Urine Blood Large H, Urine Nitrate Negative, Urine Bilirubin Small H, Urine Urobilinogen 1.0 H, Ur Leukocyte Esterase Negative, Urine RBC 25 - 30, Urine WBC 1 - 3, Ur Epithelial Cells None, Amorphous Sediment Few, Urine Bacteria Many, Coarse Granular Casts Trace H - RAD Interpretation Radiology Orders: 01/19/18 12:53 ABDOMEN,PELVIS W/WO CONTRAST [CT] Stat Disposition/Present on Arrival - Present on Arrival Any Indicators Present on Arrival: No History of DVT/PE: No History of Uncontrolled Diabetes: Yes Urinary Catheter: No History Surgical Site Infection Following: None - Disposition Have Diagnosis and Disposition been Completed?: Yes Diagnosis: Hematuria Disposition: HOME/ ROUTINE Disposition Time: 15:45 Patient Plan: Discharge Condition: STABLE Discharge Instructions (ExitCare): Blood in the Urine (Hematuria) in Adults Additional Instructions: Follow up with a Urologist, Dr. Wu tomorrow Return to ED for any new or worsening symptoms Referrals: Violette Wu MD [Staff Provider] - Follow up with primary Forms: [employer] ([place])
[2018-01-19 12:33] LABS: URINE BILIRUBIN SMALL (NEGATIVE); URINE BLOOD LARGE (NEGATIVE); URINE GLUCOSE (UA) NEGATIVE (NEGATIVE); URINE LEUKOCYTE ESTERASE NEGATIVE Leu/uL (NEGATIVE); URINE PROTEIN 100 mg/dL (<30 mg/dL)
[2018-01-19 12:38] LABS: URINE APPEARANCE CLEAR (CLEAR); URINE COLOR YELLOW (YELLOW)
[2018-01-19 12:48] LABS: URINE BACTERIA MANY (NEG); URINE RBC 25 - 30 /hpf (0-2)
[2018-01-19 12:49] LABS: URINE AMORPHOUS SEDIMENT FEW; URINE COARSE GRANULAR CAST TRACE /hpf (0-2)
[2018-01-19 13:32] LABS: EOS % 0.5 % (1.5-5.0); GRAN # 2.28 (1.4-6.5); GRAN % 62.7 % (50.0-68.0); LYMPH # 0.8 (1.2-3.4); MEAN CELL VOLUME 89.5 fl (80.0-105.0); MEAN CORPUSCULAR HEMOGLOBIN 30.1 pg (25.0-35.0); MEAN CORPUSCULAR HGB CONC 33.6 g/dl (31.0-37.0); MEAN PLATELET VOLUME 9.7 fl (7.0-11.0); MONO # 0.5 (0.1-0.6); MONO % 14.8 % (1.0-6.0); RBC 3.99 10^6/uL (3.5-6.1); WHITE BLOOD COUNT 3.6 10^3/ul (4.5-11.0)
[2018-01-19 13:34] LABS: ALBUMIN 4.2 g/dL (3.0-4.8); ALT/SGPT 117 U/L (7-56); AST/SGOT 76 U/L (17-59); BLOOD UREA NITROGEN 20 mg/dL (7-21); CALCIUM 9.7 mg/dL (8.4-10.5); GFR NON-AFRICAN AMERICAN > 60
--- NOTE | 2018-01-19 15:41 | CT ---
Date of service: 01/19/2018 PROCEDURE: CT Abdomen and Pelvis with and without intravenous contrast HISTORY: hematuria COMPARISON: CT chest, abdomen, and pelvis performed 10/21/17 TECHNIQUE: Axial images of the abdomen were obtained in the pre contrast, portal venous and delayed phases of enhancement. Coronal and sagittal reformats were generated and reviewed. Contrast dose: 150 mL Omnipaque 350 Radiation dose: Total exam DLP = 1974.50 mGy-cm. This CT exam was performed using one or more of the following dose reduction techniques: Automated exposure control, adjustment of the mA and/or kV according to patient size, and/or use of iterative reconstruction technique. FINDINGS: LOWER THORAX: No visible consolidation, pleural effusion, or pneumothorax. Dense mitral annulus calcification. Dense atherosclerotic calcifications of the aorta and branches. Partially imaged median sternotomy wires. LIVER: Hepatomegaly. GALLBLADDER AND BILE DUCTS: Decompressed gallbladder precludes adequate evaluation. Cholelithiasis. PANCREAS: Unremarkable. SPLEEN: Splenomegaly. ADRENALS: Bilateral adrenal gland hypertrophy. 12 mm right adrenal gland mass measures approximately -12 HU consistent with adenoma. 2.2 cm left adrenal gland mass measures approximately -1 HU also consistent with adenoma. KIDNEYS AND URETERS: Bilateral nonobstructing renal calculi. No hydronephrosis. Mild bilateral perinephric stranding. Bilateral too small to characterize renal hypodensities ; statistically likely cysts. The right kidney is diminutive. VASCULATURE: Dense atherosclerotic calcifications of the aorta and branches. No aortic aneurysm. BOWEL: Stomach is nondistended. Lack of oral contrast limits evaluation for bowel pathology. Bowel loops appear within normal limits of caliber without evidence of obstruction. APPENDIX: The appendix is not identified. No secondary signs of acute appendicitis. PERITONEUM: No significant free fluid. No definite free air. LYMPH NODES: No bulky adenopathy identified. BLADDER: Thick-walled urinary bladder. REPRODUCTIVE: Enlarged prostate gland. BONES: Degenerative changes. Osseous demineralization. OTHER FINDINGS: None. IMPRESSION: Thick-walled urinary bladder. Recommend correlation with urinalysis. Cystoscopy may be considered if indicated. Enlarged prostate gland. Recommend correlation with PSA. Bilateral adrenal masses appear consistent with adenomas. Bilateral nonobstructing renal calculi. No hydronephrosis. Mild bilateral perinephric stranding. Bilateral too small to characterize renal hypodensities ; statistically likely cysts. The right kidney is diminutive. Decompressed gallbladder precludes adequate evaluation. Cholelithiasis. Hepatomegaly. Splenomegaly. Additional findings as above.
[2018-01-19 16:06] VITALS: BP 145/88; PULSE 88
== END 2018-01-19 16:05 | disposition home or self-care (01) ==
LOC: ED 11:12
DX: R31.9 Hematuria, unspecified (principal); E11.9 Type 2 diabetes mellitus without complications; I10 Essential (primary) hypertension; I25.10 Atherosclerotic heart disease of native coronary artery without angina pectoris
CPT/HCPCS: 74178; 80053; 81001; 82948; 84153; 85025; 99284; Q9967

== ENCOUNTER 2018-06-09 08:06 | Outpatient (CLI) | payer MEDICARE | END 2018-06-09 08:07 | disposition home or self-care (01) | LOC: RAD 08:06 ==